=== PATIENT | female | born 1960 | race Two or more races ===

== ENCOUNTER 2019-04-20 11:00 | Outpatient (AMBR) | payer MEDICAID, SELFPAY ==
--- NOTE | 2019-04-09 10:29 | PT.OIERPT ---
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 Pt mention that she still has knee pain (6/10). Pt still has limitation with walking, sit-stand, prolonged standing, chores, self care, and functional tasks. Pt is anemic and is currently under a physician's care. Objective Left Knee AROM: -15 deg to 71 deg Left Knee PROM: -12 deg to 75 deg Left Knee MMTs Quads: 3/5 Hs: 3/5 Left Hip MMTs Glute Med: 3/5 Glute MaxL 3/5 Gait Observation: decrease L LE WB in stance and minimal preswing and pushoff SLS: unable Assessment Pt demonstrate lef knee pain and mobility deficits s/p knee [place] leading to decline function. Pt will benefit from physical therapy to increase mobility, strength, and work on gait Short Term and Detention Goals 1) Increase left knee flexion AROM to 120 deg in 12 wks to be able to perform squatting activities 2) Increase left knee MMTs to 4/5 in 12 wks to be able to perform stairs and steps 3) Increase left hip MMTs to 4-/5 in 12 wks to be able to perform ambulation with less limitation 4) Decrease knee pain to 2/10 in 12 wks to be able to stand more than 1 hr 5) Indep with HEP Treatment Plan 1) Manual Therapy 2) Therapeutic Activities 3) Therapeutic Exercises 4) Modalities (ice, heat) 5) Balance Training 6) Gait Training Frequency and Duration 2-3 x wk for 12 w wks Certification Dates: 04/09/19 to 07/09/19 Office Procedures PT Procedures PT Date of Service: 04/09/19 OP PT Eval Mod Complex 30 minutes: Yes
--- NOTE | 2019-04-10 10:44 | PT.ODAYNRPT ---
PT Outpatient Daily Note Date of Service: April 10, 2019 OP Daily Note Visit Reasons: [place] Outpatient Physical Therapy Treatment Date: 04/10/19 Subjective: Pt is feeling okay. Pt mention that there's more soreness in the knee today. Objective: Please see flow chart for list of ther ex performed Assessment: Pt exhibit pain with knee flexion stretch, however, educated that it's a necessary process due to having a knee [place] 2 days ago. Pt require cues to correct the self knee flexion stretch with green strap. Post ice help decrease pain. Plan: Continue with PT Length of Time (minutes) of Treatment: 30 Minutes Office Procedures PT Procedures PT Date of Service: 04/09/19 OP PT Eval Mod Complex 30 minutes: Yes PT Procedures PT Date of Service: 04/10/19 Therapeutic Exercise 30 minutes: Yes
--- NOTE | 2019-04-13 11:51 | PT.ODAYNRPT ---
PT Outpatient Daily Note Date of Service: April 13, 2019 OP Daily Note Visit Reasons: [place] Outpatient Physical Therapy Treatment Date: 04/13/19 Subjective: Pt mention that her knee is very sore today and it hurts currently due to not taking her pain meds prior to PT. Pt will like to know some stretching to get her knee straight. Objective: Please see flow chart for list of ther ex performed Assessment: very guarded today with exercises due to pain. cues to correct knee flexion AROM with foam roll. Pt demonstrate less stiffness after therapy session Plan: Continue with PT Length of Time (minutes) of Treatment: 45 Minutes Office Procedures PT Procedures PT Date of Service: 04/09/19 OP PT Eval Mod Complex 30 minutes: Yes PT Procedures PT Date of Service: 04/10/19 Therapeutic Exercise 30 minutes: Yes PT Procedures PT Date of Service: 04/13/19 Therapeutic Exercise 45 minutes: Yes
--- NOTE | 2019-04-15 11:19 | PT.ODAYNRPT ---
PT Outpatient Daily Note Date of Service: April 15, 2019 OP Daily Note Visit Reasons: [place] Outpatient Physical Therapy Treatment Date: 04/15/19 Subjective: Pt's knee is hurting today. Pt mention that she's been having left neck, chest, and arm pain since yesterday. Pt feels that there's air in the joint or muscle. Currently Pt still feels that she has air in her chest but no pain or SOB. Pt really wants to do therapy today. Objective: Please see flow chart for list of ther ex performed Assessment: advised Pt to go to ER if symptoms reported worsening after therapy session or towards the evening. Pt gave verbal consent. Pt was very guarded today with exercises and self stretch due to pain. post ice help with soreness and decrease knee pain Plan: Continue with PT Length of Time (minutes) of Treatment: 45 Minutes Office Procedures PT Procedures PT Date of Service: 04/09/19 OP PT Eval Mod Complex 30 minutes: Yes PT Procedures PT Date of Service: 04/10/19 Therapeutic Exercise 30 minutes: Yes PT Procedures PT Date of Service: 04/13/19 Therapeutic Exercise 45 minutes: Yes PT Procedures PT Date of Service: 04/15/19 Therapeutic Exercise 45 minutes: Yes
--- NOTE | 2019-04-20 12:44 | PT.ODAYNRPT ---
PT Outpatient Daily Note Date of Service: April 20, 2019 OP Daily Note Visit Reasons: [place] Outpatient Physical Therapy Treatment Date: 04/20/19 Subjective: Pt. reported 7/10 pain in L knee while using sci fit machine with B U/L E. Objective: Please refer to flow chart for list of ther ex performed. Assessment: Pt. has very limited movement in L knee during all flexion-biased ther ex. Pt. had discomfort during passive knee flexion stretch with stretch felt in rectus femoris and pain in knee as well. Plan: Continue PT per POC. Length of Time (minutes) of Treatment: 30 Minutes Office Procedures PT Procedures PT Date of Service: 04/09/19 OP PT Eval Mod Complex 30 minutes: Yes PT Procedures PT Date of Service: 04/20/19 Therapeutic Exercise 30 minutes: Yes PT Procedures PT Date of Service: 04/10/19 Therapeutic Exercise 30 minutes: Yes PT Procedures PT Date of Service: 04/13/19 Therapeutic Exercise 45 minutes: Yes PT Procedures PT Date of Service: 04/15/19 Therapeutic Exercise 45 minutes: Yes
== END 2019-04-20 23:59 | disposition home or self-care (01) ==
PROVIDERS: PCP Family Medicine; Referring Provider Family Medicine; Visit Provider Orthopaedic Surgery
DX: T84.82XD Fibrosis due to internal orthopedic prosthetic devices, implants and grafts, subsequent encounter (principal); M25.562 Pain in left knee; R26.2 Difficulty in walking, not elsewhere classified; V89.2XXD Person injured in unspecified motor-vehicle accident, traffic, subsequent encounter
CPT/HCPCS: 97110; 97162

== ENCOUNTER 2024-07-09 09:30 | Day surgery (SDC) | payer MEDICAID, SELFPAY ==
[2024-07-03 08:11] VITALS: BMI 38.6
[2024-07-03 09:08] LABS: Basophils # (Auto) 0.1 Thou/mm3 (0.0-0.2); Basophils % (Auto) 1 % (0-2.5); Eosinophils # (Auto) 0.2 Thou/mm3 (0.0-0.5); Eosinophils % (Auto) 2 % (0-10); Hematocrit 39.3 % (36.0-46.0); Hemoglobin 12.5 g/dL (12.0-16.0); Immature Granulocytes % (Auto) 0 % (0-0); Immature Granulocytes Auto 0.01 Thou/mm3 (0.00-0.00); Lymphocytes # (Auto) 2.1 Thou/mm3 (1.0-4.8); Lymphocytes % (Auto) 30 % (10-50); Mean Corpuscular HGB Conc 31.8 g/dl (31.0-37.0); Mean Corpuscular Hemoglobin 28.5 pg (25.0-35.0); Mean Corpuscular Volume 90 fL (80-100); Monocytes # (Auto) 0.7 Thou/mm3 (0.0-0.8); Monocytes % (Auto) 11 % (0-12); Neutrophils % (Auto) 56 % (37-80); Nucleated Red Blood Cell % 0 /100 WBC (0); Platelet Count 286 Thou/mm3 (140-440); RDW Standard Deviation 44.8 fL (36.4-46.3); Red Blood Count 4.38 Miln/mm3 (4.00-5.20)
[2024-07-03 09:16] LABS: Partial Thromboplastin Time 27.3 Seconds (22.0-36.0); Prothrombin Time 10.6 Seconds (9.0-12.2)
[2024-07-03 09:20] LABS: Alanine Aminotransferase 15 U/L (10-49); Albumin, Serum 4.9 gm/dL (3.4-4.8); Alkaline Phosphatase 95 U/L (46-116); Anion Gap 4 (7-16); Aspartate Amino Transferase 15 U/L (0-34); BUN/Creatinine Ratio 13 Ratio (12-20); Bilirubin,Total 0.5 mg/dL (0.3-1.2); Blood Urea Nitrogen 9 mg/dL (9-23); Calcium 9.2 mg/dL (8.3-10.6); Calcium (Corrected) 9.2 mg/dL (8.5-10.1); Carbon Dioxide 30.1 mMol/L (20.0-31.0); Chloride 105 mMol/L (98-107); Creatinine (Component) 0.7 mg/dL (0.6-1.3); Estimated Creatinine Clearance 88.6 mL/min (>60); Globulin 2.4 gm/dL (2.3-3.5); Glucose 92 mg/dL (74-106); Osmolality,Calculated 276 (275-295); Potassium 3.7 mMol/L (3.4-5.1); Sodium 139 mMol/L (136-145); Total Protein 7.3 gm/dL (5.7-8.2); eGFR > 60 See Note
[2024-07-09] VITALS (14 sets, daily range): BP systolic 92–150; BP diastolic 61–97; PULSE 72–101; RESP 12–20; TEMP 36.2–36.6; O2SAT 95–98; BMI 38.3
[2024-07-09] MEDS: ALBUTEROL RT 2.5 MG/3 ML NEBU INH (11:16)
[2024-07-09] MEDS: RINGERS LACTATED 1000 ML 1,000 ML 20 ML IV (11:17)
--- NOTE | 2024-07-09 13:11 | ESOP_ITS ---
Date of Procedure 07/09/24 Pre Op Diagnosis Symptomatic varicose veins right lower extremity Post Op Diagnosis Same as preop diagnosis Procedure Varicose vein excisions right lower extremity through 42 separate incisions Findings All marked varicose veins were either removed or disrupted Procedure Description With the patient standing in the preop area all varicose veins to be removed were carefully marked with a sharpie pen. The patient was brought to the operating room and laryngeal mask anesthesia was induced. A timeout was perform ed. The operation was performed by using a #11 blade to make a small skin anibal in the marked areas then bluntly enlarging the incision with a small mosquito clamp and sequentially grasping and excising the veins. This was done through 42 separate incisions. After hemostasis was obtained and the wound the leg was cleaned and then Steri-Strips were applied to reapproximate the incisions. The leg was then wrapped with gauze Kerlix and an Mirza wrap. Patient woke up from anesthesia was moved to recovery in stable condition Anesthesia other (Laryngeal mask anesthesia) Pathology / specimen Other (Right leg varicose veins) Estimated Blood Loss 200 Condition Stable Disposition PACU Surgeon Odell Quintanilla MD Surgical Staff Operation Date: 07/09/24 11:30 Case Staff Anesthesiologist: Carlos Shah RN First Assistant: Ofe Lozano
--- NOTE | 2024-07-09 13:38 | SUR.PHASEI ---
pt received from OR in recovery bay 8. pt asleep but responds to voice, breathing unlabored on oxymask 8l. v/s stable. pt dressing to right lower extremity cdi. report received from Ry BERKOWITZ and Dr. Shah.
[2024-07-09] MEDS: ONDANSETRON INJ 2 MG/ML INJ 2 ML 4 MG IV (14:28)
--- NOTE | 2024-07-09 15:30 | SUR.PHASEII ---
pt able to tolerate oral fluids without difficulty swallowing or nausea/vomiting.
[2024-07-09] MEDS: fentaNYL CIT INJ 50 mCg/ML AMP 2ML 25 MCG IV (15:32)
--- NOTE | 2024-07-09 16:25 | SUR.PHASEII ---
pt awake and alert, breathing unlabored on room air. v/s stable. pt dressing to right lower extremity cdi. pt able to ambulate to wheelchair with steady gait. dressing inspected after ambulation no blood noted. d/c instructions given with daughter Sun in room using lawn mower mechanic [id number], all questions answered. pt d/c via wheelchair with all belongings.
== END 2024-07-09 16:25 | disposition home or self-care (01) ==
PROVIDERS: Anesthesiology; PCP Family Medicine; Referring Provider Surgery Vascular Surgery; Visit Provider Surgery Vascular Surgery
PROC: (CPT 37785; principal; 2024-07-09 11:15)
DX: I83.811 Varicose veins of right lower extremity with pain (principal)
CPT/HCPCS: 37765; 37766; 36415; 80053; 85025; 85610; 85730; A4217; A4649; J0690; J2250; J2405; J2704; J2765; J3010; J7120

== ENCOUNTER 2024-07-17 14:22 | Emergency (ER) | payer MEDICAID, SELFPAY ==
[2024-07-17 14:23] VITALS: BMI 38.4
[2024-07-17 14:53] VITALS: BP 133/77; PULSE 102; RESP 19; TEMP 36.9; O2SAT 96
--- NOTE | 2024-07-17 15:39 | XR_ITS ---
Examination: PA lateral chest 2 views TECHNIQUE: Upright PA lateral chest 2 views Exam date and time: July 17, 2024 1547 hours Comparison November 24, 2023 INDICATIONS: Asthma coughing shortness of breath today. FINDINGS: Mild accentuation basilar bronchovascular markings Normal heart size No lobar pneumonia Intact osseous structures IMPRESSION: Basilar bronchitis pattern
--- NOTE | 2024-07-17 15:52 | PD.ASTHM ---
ED Asthma RME/HPI General Chief Complaint: Asthma Stated Complaint: ASTHMA Time Seen by Provider: 07/17/24 14:59 Source: patient Arrival date/time: 07/17/24 14:22 This is a 64-year-old female presents to the emergency department with complaints of wheezing shortness of breath worsening for 3 days. History of asthma exacerbation. Patient reports she has been using her handheld albuterol inhaler with no relief of symptoms prompting her ED visit today. She denies any fever, chills no chest pain. + Wheezing Mode of arrival: ambulatory Related Data Home Medications ?Medication ?Instructions ?Recorded ?Confirmed omeprazole 20 mg capsule,delayed 20 mg PO BID 12/06/21 07/03/24 release amlodipine 10 mg tablet 10 mg PO QDAY 07/03/24 07/03/24 aspirin 81 mg tablet,delayed 81 mg PO QDAY 07/03/24 07/03/24 release atorvastatin 20 mg tablet 20 mg PO QDAY 07/03/24 07/03/24 fluticasone propionate 230 2 puff inhalation BID 07/03/24 07/03/24 mcg-salmeterol 21 mcg/actuation HFA inhaler (Advair HFA) sertraline 100 mg tablet 100 mg PO QDAY 07/03/24 07/03/24 Previous Rx's ?Medication ?Instructions ?Recorded albuterol sulfate 90 mcg/actuation 2 inh inhalation Q4H PRN shortness 06/28/23 aerosol inhaler of breath or wheezing #8.5 grams albuterol sulfate 90 mcg/actuation 2 puff inhalation Q6H PRN 07/17/24 aerosol inhaler (Ventolin HFA) shortness of breath or wheezing #8.5 grams fluticasone 250 mcg-salmeterol 50 1 inh inhalation BID #60 ea 07/17/24 mcg/dose blistr powdr for inhalation ipratropium bromide 17 2 puff inhalation Q8H #12.9 grams 07/17/24 mcg/actuation HFA aerosol inhaler Allergies Allergy/AdvReac Type Severity Reaction Status Date / Time No Known Allergies Allergy Verified 07/17/24 14:25 Review of Systems Review of Systems Systems Reviewed: All systems reviewed, normal except as documented Narrative Review of Systems: Gen: No fever, no chills, no weight loss EYES: No discharge, no visual changes, no pain HEENT: No ear pain, no congestion, no sore throat PULM: + shortness of breath/+wheezing, no cough, no congestion CV: No chest pain, + dyspnea on exertion, no palpitations GI: No nausea, no vomiting, no diarrhea, no pain, no constipation : No frequency, no urgency, no dysuria Musc/skel: No joint pain, no back pain Skin: No rash Psyc: No hallucinations, no depression Heme/Lymph: No easy bleeding or bruising tendencies Neuro: No weakness, no headache ED Exam Narrative Physical exam: General: 64-year-old female Sittiing in Exam table speaking in full sentences mild respiratory, answering questions appropriately HENT: normocephalic, atraumatic, EOMI, PERRLA, moist mucous membranes Chest: chest wall is nontender Cardiac: regular rate and rhythm, normal S1 and S2, no murmurs, rubs, or gallops, capillary refill ?2 seconds Pulmonary: + Positive inspiratory wheezing, no crackles, or rhonchi Abdominal: active bowel sounds, soft, nontender, nondistended Neuro: A&OX3, CN II-XII intact, sensation grossly intact bilaterally in UE and LE. Skin: no rashes, no ecchymosis Ext: no lower extremity edema Course Quality Measures none Orders Category Date Time Status XR chest 2V Stat Exams 07/17/24 15:39 Taken Albuterol/Ipratr Rt Lizeth [Duoneb Rt Lizeth] Med 07/17/24 15:37 Discontinued 3 ml INH X1 ONE Budesonide Rt [Pulmicort Rt Lizeth] Med 07/17/24 15:38 Discontinued 0.5 mg INH X1 ONE MethylPREDNISolone.* [SoluMEDROL Inj] Med 07/17/24 15:33 Discontinued 125 mg IM X1 ONE Vital Signs Vital signs: Vital Signs Temperature 98.4 F 07/17/24 14:53 Pulse Rate 102 H 07/17/24 14:53 Respiratory Rate 19 07/17/24 14:53 Blood Pressure 133/77 H 07/17/24 14:53 Pulse Oximetry (%) 96 07/17/24 14:53 Oxygen Delivery Method Room Air 07/17/24 14:53 Asthma MDM Narrative MDM Narrative:: Patient has improved there is no more wheezing, no more coughing at this time. No respiratory distress at upon reassessment presentation. Patient's lung sounds improved with nebulizer treatments given in the ED. The patient is without hypoxia, without fever and is tolerating POs. Doubt pneumonia given no focal lung abnormalities and patient is afebrile. Patient is stable for discharge home. Patient to follow up with PMD in 2 days. Strict return to ED precautions given to parent. Patient verbalized understanding. Patient data External records reviewed:: [facility] previous records Clinical information provided by:: patient Social determinants that could affect healthcare access:: none Patient has the following chronic illnesses:: Hypertension, asthma, arthritis How is presenting disease/condition affected by chronic disease/condition?: exacerbated by Evaluation data The following diagnostics were reviewed and interpreted by me:: radiology exam(s) Lab and/or radiology exams considered but not ordered:: Labs however patient presents with mild asthma exacerbation. Interpretation Summary: Examination: PA lateral chest 2 views TECHNIQUE: Upright PA lateral chest 2 views Exam date and time: July 17, 2024 1547 hours Comparison November 24, 2023 INDICATIONS: Asthma coughing shortness of breath today. FINDINGS: Mild accentuation basilar bronchovascular markings Normal heart size No lobar pneumonia Intact osseous structures IMPRESSION: Basilar bronchitis pattern Medications / Prescriptions Medications or Prescriptions considered but not ordered:: none Medication administrations:: Medication Administration History Discontinued Medications Albuterol/Ipratropium (Albuterol/Ipratropium (Duoneb) Rt Lizeth 3 Ml Nebu) 3 ml INH X1 ONE Stop: 07/17/24 15:38 Budesonide (Budesonide Rt 0.5 Mg/2 Ml Nebu) 0.5 mg INH X1 ONE Stop: 07/17/24 15:39 Methylprednisolone Sodium Succinate (Methylprednisolone Sod Succ 62.5 Mg/Ml 2ml Vial) 125 mg IM X1 ONE Stop: 07/17/24 15:34 Consultations Consultation(s) initiated? (list below): No Diagnosis Differential diagnosis asthma: Acute exacerbation, Status asthmaticus, Acute asthmatic bronchitis, Pneumonia and COPD exacerbation Most likely diagnosis given after review of the tests above:: Asthma exacerbation Admission Indicated Admission indicated?: not indicated Admission Request Was there a request for admission?: No Disposition Plan Disposition Plan: Discharge Discharge Attestation Discharge Attestation: The patient and all family members were given an opportunity to ask questions and understood the discharge instructions. Discharge instructions specifically effects, indications for sooner follow up or return to the emergency department, and the expected course of current diagnosis. Patient condition: Stable Discharge Plan Plan Patient Disposition: HOME (Self Care) Patient condition on transfer: Stable Prescriptions/Referrals Prescriptions/Med Rec: New fluticasone propion-salmeterol 250-50 mcg/dose blister with device 1 inh inhalation BID Qty: 60 0RF albuterol sulfate [Ventolin HFA] 90 mcg/actuation HFA aerosol inhaler 2 puff inhalation Q6H PRN (Reason: shortness of breath or wheezing) Qty: 8.5 0RF ipratropium bromide 17 mcg/actuation HFA aerosol inhaler 2 puff inhalation Q8H Qty: 12.9 0RF No Action omeprazole 20 mg Capsule,Delayed Release(Dr/Ec) 20 mg PO BID albuterol sulfate 90 mcg/actuation HFA aerosol inhaler 2 inh inhalation Q4H PRN (Reason: shortness of breath or wheezing) Qty: 8.5 0RF atorvastatin 20 mg Tablet 20 mg PO QDAY sertraline 100 mg Tablet 100 mg PO QDAY amlodipine 10 mg Tablet 10 mg PO QDAY fluticasone propion-salmeterol [Advair HFA] 230-21 mcg/actuation Hfa Aerosol Inhaler 2 puff INHALATION BID aspirin 81 mg Tablet,Delayed Release (Dr/Ec) 81 mg PO QDAY Referrals: Benjamin Linn MD [Primary Care Provider] - In 1 week Problem List Clinical Impression: Asthma exacerbation Patient/Caregiver Discharge Instructions Discharge Activity: activity as tolerated Education Materials: Asthma Additional Instructions: - Please use inhalers as directed. -Please use your medication and steroids as directed. -Please follow-up with your primary doctor on Saturday for follow-up care Please return to the emergency department this any worsening symptoms change in condition. Print Language: Cameroonian Stand Alone Forms: Annita Award Info., Patient Portal Info Letter PA/JEFF Supervising Physician PA/JEFF Supervising Physician: Dr Glasgow
[2024-07-17] MEDS: ALBUTEROL/IPRATROPIUM (Duoneb) RT SOL 3 ML NEBU INH ×2 (16:13→17:07)
[2024-07-17] MEDS: BUDESONIDE RT 0.5 MG/2 ML NEBU INH (16:13)
[2024-07-17] MEDS: MethylPREDNISolone SOD SUCC 62.5 MG/ML 2ML VIAL 125 MG IM (16:14)
[2024-07-17 16:15] VITALS: PULSE 85; RESP 18; O2SAT 100
[2024-07-17 17:08] VITALS: PULSE 87; RESP 18; O2SAT 100
[2024-07-17] MEDS: ACETAMINOPHEN 500 MG TABLET 1000 MG PO (17:23)
== END 2024-07-17 18:00 | disposition home or self-care (01) ==
PROVIDERS: Emergency Provider Emergency Medicine; PCP Family Medicine
DX: J45.901 Unspecified asthma with (acute) exacerbation (principal); Z79.51 Long term (current) use of inhaled steroids
CPT/HCPCS: 71046; 94640; 96372; 99284; A9270; J2919

== ENCOUNTER → 2024-07-27 | Outpatient (BNVA) | payer MEDICAID, SELFPAY | END | disposition home or self-care (01) | PROVIDERS: PCP Nurse Practitioner Family; Referring Provider Nurse Practitioner Family; Visit Provider Nurse Practitioner Family | DX: J45.901 Unspecified asthma with (acute) exacerbation (principal) | CPT/HCPCS: 94640; 96372; 99214; J2919; A9270 ==

== ENCOUNTER → 2024-08-04 | Outpatient (BNVA) | payer MEDICAID, SELFPAY | END | disposition home or self-care (01) | PROVIDERS: PCP Nurse Practitioner Family; Referring Provider Nurse Practitioner Family; Visit Provider Nurse Practitioner Family | DX: Z00.01 Encounter for general adult medical examination with abnormal findings (principal); Z13.820 Encounter for screening for osteoporosis; Z12.31 Encounter for screening mammogram for malignant neoplasm of breast; I10 Essential (primary) hypertension; J45.909 Unspecified asthma, uncomplicated; E66.9 Obesity, unspecified; Z68.30 Body mass index [BMI] 30.0-30.9, adult; Z13.220 Encounter for screening for lipoid disorders | CPT/HCPCS: 93005; 99215 ==

== ENCOUNTER → 2024-08-31 | Outpatient (CLI) | payer MEDICAID, SELFPAY ==
--- NOTE | 2024-08-31 08:15 | XR_ITS ---
Examination: Screening digital mammography, bilateral Computer aided detection 3-D breast Tomosynthesis, bilateral Date and time of exam: August 31, 2024 0955 hours Compared to mammograms dating to November 27, 2010 Indication: Screening Technique: Nonmagnified MLO, CC views of the breasts to been obtained, reconstructed from 3-D Tomosynthesis images. R2 computer aided detection program utilized for evaluation of suspicious masses and/or abnormal calcifications. 3-D Tomosynthesis images obtained. Findings: Scattered areas of fibroglandular density Numerous bilateral calcifications again noted No interval suspicious masses Impression: BI-RADS category II: Benign Findings. Recommend 1 year follow-up mammogram.
== END | disposition home or self-care (01) ==
LOC: CDIM 09:49
PROVIDERS: Referring Provider Nurse Practitioner Family; Visit Provider Nurse Practitioner Family
DX: Z12.31 Encounter for screening mammogram for malignant neoplasm of breast (principal); R92.323 Mammographic fibroglandular density, bilateral breasts; R92.1 Mammographic calcification found on diagnostic imaging of breast
CPT/HCPCS: 77063; 77067

== ENCOUNTER → 2024-09-03 | Outpatient (BNVA) | payer MEDICAID, SELFPAY | END | disposition home or self-care (01) | PROVIDERS: PCP Nurse Practitioner Family; Referring Provider Nurse Practitioner Family; Visit Provider Nurse Practitioner Family | DX: J45.909 Unspecified asthma, uncomplicated (principal); I10 Essential (primary) hypertension; K21.9 Gastro-esophageal reflux disease without esophagitis | CPT/HCPCS: 99213 ==

== ENCOUNTER → 2024-09-08 | Outpatient (BNVA) | payer MEDICAID, SELFPAY | END | disposition home or self-care (01) | PROVIDERS: PCP Nurse Practitioner Family; Referring Provider Nurse Practitioner Family; Visit Provider Nurse Practitioner Family | DX: I10 Essential (primary) hypertension (principal); E78.5 Hyperlipidemia, unspecified; R73.03 Prediabetes; Z71.2 Person consulting for explanation of examination or test findings; E55.9 Vitamin D deficiency, unspecified; Z12.31 Encounter for screening mammogram for malignant neoplasm of breast | CPT/HCPCS: 99213 ==

== ENCOUNTER → 2024-09-28 | Outpatient (CLI) | payer MEDICAID, SELFPAY ==
--- NOTE | 2024-09-28 14:45 | XR_ITS ---
Examination: Bone densitometry Date and time of exam:September 28, 2024 1514 hrs. Indications: Menopause age 53 vitamin D one week Technique: Lumbar spine and hip total bone mineralization values of an calculated. Peak reference and age match control results have been displayed. Findings: Lumbar spine total bone mineralization is0.891 gm/cm2. This is 1.4 standard deviations below peak reference. This is 0.4 standard deviations above age-matched controls. Hip total bone mineralization is 0.941 gm/cm2 This is 0.2 standard deviations below peak reference. This is 1 standard deviations above age-matched controls Impression: There is osteopenia based on lumbar spine measurements. There is osteopenia based on hip measurements
== END | disposition home or self-care (01) ==
PROVIDERS: PCP Nurse Practitioner Family; Referring Provider Nurse Practitioner Family; Visit Provider Nurse Practitioner Family
DX: Z13.820 Encounter for screening for osteoporosis (principal); M85.89 Other specified disorders of bone density and structure, multiple sites
CPT/HCPCS: 77080

== ENCOUNTER → 2024-10-13 | Outpatient (BNVA) | payer MEDICAID, SELFPAY | END | disposition home or self-care (01) | PROVIDERS: PCP Nurse Practitioner Family; Referring Provider Nurse Practitioner Family; Visit Provider Nurse Practitioner Family | DX: M54.41 Lumbago with sciatica, right side (principal); M85.80 Other specified disorders of bone density and structure, unspecified site | CPT/HCPCS: 99214 ==

== ENCOUNTER → 2024-10-13 | Outpatient (CLI) | payer MEDICAID, SELFPAY ==
--- NOTE | 2024-10-13 12:09 | XR_ITS ---
Examination: Lumbar spine 3 views Technique one AP lateral coned lateral lower lumbar spine 3 views Exam date and time: October 13, 2024 1242 hours INDICATIONS: Low back pain radiating down the right leg one year FINDINGS: Moderate osteopenia Lumbar dextroscoliosis 10 degrees No lumbar fracture Advanced disc narrowing L5-S1 IMPRESSION: Advanced degenerative disc disease L5-S1 As clinically warranted, MRI lumbar spine without contrast follow-up would best assess for soft tissue disc protrusion producing radicular right hip pain
== END | disposition home or self-care (01) ==
PROVIDERS: PCP Nurse Practitioner Family; Referring Provider Nurse Practitioner Family; Visit Provider Nurse Practitioner Family
DX: M51.379 Other intervertebral disc degeneration, lumbosacral region without mention of lumbar back pain or lower extremity pain (principal)
CPT/HCPCS: 72100

== ENCOUNTER → 2024-10-20 | Outpatient (BNVA) | payer MEDICAID, SELFPAY | END | disposition home or self-care (01) | PROVIDERS: PCP Nurse Practitioner Family; Referring Provider Nurse Practitioner Family; Visit Provider Nurse Practitioner Family | DX: Z71.2 Person consulting for explanation of examination or test findings (principal); M54.41 Lumbago with sciatica, right side; M51.369 Other intervertebral disc degeneration, lumbar region without mention of lumbar back pain or lower extremity pain; E55.9 Vitamin D deficiency, unspecified | CPT/HCPCS: 99214 ==

== ENCOUNTER → 2024-12-11 | Outpatient (BNVA) | payer MEDICAID, SELFPAY | END | disposition home or self-care (01) | PROVIDERS: PCP Nurse Practitioner Family; Referring Provider Nurse Practitioner Family; Visit Provider Nurse Practitioner Family | DX: D64.9 Anemia, unspecified (principal); E55.9 Vitamin D deficiency, unspecified ==

== ENCOUNTER → 2024-12-16 | Outpatient (BNVA) | payer MEDICAID, SELFPAY | END | disposition home or self-care (01) | PROVIDERS: PCP Nurse Practitioner Family; Referring Provider Nurse Practitioner Family; Visit Provider Nurse Practitioner Family | DX: F32.1 Major depressive disorder, single episode, moderate (principal) | CPT/HCPCS: 99212; G0463 ==

== ENCOUNTER → 2024-12-25 | Outpatient (BNVA) | payer MEDICAID, SELFPAY | END | disposition home or self-care (01) | PROVIDERS: PCP Nurse Practitioner Family; Referring Provider Nurse Practitioner Family; Visit Provider Nurse Practitioner Family | DX: J45.909 Unspecified asthma, uncomplicated (principal); E78.5 Hyperlipidemia, unspecified; R73.03 Prediabetes; Z71.2 Person consulting for explanation of examination or test findings; E55.9 Vitamin D deficiency, unspecified | CPT/HCPCS: 99212; G0463 ==

== ENCOUNTER → 2025-01-06 | Outpatient (BNVA) | payer MEDICAID, SELFPAY | END | disposition home or self-care (01) | PROVIDERS: PCP Nurse Practitioner Family; Referring Provider Nurse Practitioner Family; Visit Provider Nurse Practitioner Family | DX: M54.41 Lumbago with sciatica, right side (principal); M21.611 Bunion of right foot; M25.572 Pain in left ankle and joints of left foot; M25.571 Pain in right ankle and joints of right foot; M25.561 Pain in right knee | CPT/HCPCS: 96372; 99214; J1885 ==

== ENCOUNTER → 2025-01-06 | Outpatient (CLI) | payer MEDICAID, SELFPAY ==
--- NOTE | 2025-01-06 16:24 | XR_ITS ---
Examination: Foot bilateral, 6 views Technique: AP, oblique, lateral views each foot total 6 views Date and time of exam: January 06, 2025 1626 hours INDICATIONS: Bilateral foot pain one year. FINDINGS: Prominent osteopenia Erosive arthritis first metatarsophalangeal joint, erosion distal first metatarsal and Moderate narrowing at the first metatarsophalangeal joint with mild bunion deformity 4 mm right plantar bony calcaneal spur Mild to moderate bunion deformity on the left with chronic erosions distal first metatarsal No fracture 5 mm plantar bony calcaneal spur IMPRESSION: Bilateral mild bunion deformities Bilateral erosions distal first metatarsals, which can be seen with gouty arthropathy, clinical correlation is advised
--- NOTE | 2025-01-06 16:24 | XR_ITS ---
Examination: Knee, right , 3 views Technique: Knee AP, lateral, oblique 3 views Date and time of exam: January 06, 2025 1626 hours INDICATIONS: Knee pain one year. FINDINGS: Total right knee arthroplasty. Satisfactory alignment. No fracture. On the lateral view there is radiolucency surrounding the prosthetic tibial stem IMPRESSION: Suspicious for loosening of the prosthetic tibial stem Consider three-phase bone scan follow-up
--- NOTE | 2025-01-06 16:24 | XR_ITS ---
Examination: Lumbar spine 3 views Technique one AP lateral, lateral lower lumbar spine 3 views Date and time: January 06, 2025 1637 hours INDICATIONS: Low back pain one year. FINDINGS: Moderate osteopenia No acute lumbar fracture Advanced disc narrowing L5-S1 No spondylolisthesis IMPRESSION: Advanced degenerative disc disease L5-S1
== END | disposition home or self-care (01) ==
PROVIDERS: PCP Nurse Practitioner Family; Referring Provider Nurse Practitioner Family; Visit Provider Nurse Practitioner Family
DX: M25.561 Pain in right knee (principal); Z96.651 Presence of right artificial knee joint; M21.612 Bunion of left foot; M21.611 Bunion of right foot; M85.872 Other specified disorders of bone density and structure, left ankle and foot; M85.871 Other specified disorders of bone density and structure, right ankle and foot; M51.370 Other intervertebral disc degeneration, lumbosacral region with discogenic back pain only
CPT/HCPCS: 72100; 73562; 73630

== ENCOUNTER → 2025-01-12 | Outpatient (BNVA) | payer MEDICAID, SELFPAY | END | disposition home or self-care (01) | PROVIDERS: PCP Nurse Practitioner Family; Referring Provider Nurse Practitioner Family; Visit Provider Nurse Practitioner Family | DX: Z71.2 Person consulting for explanation of examination or test findings (principal); M21.612 Bunion of left foot; M25.572 Pain in left ankle and joints of left foot; M25.571 Pain in right ankle and joints of right foot; M25.561 Pain in right knee; M51.369 Other intervertebral disc degeneration, lumbar region without mention of lumbar back pain or lower extremity pain | CPT/HCPCS: 99212; G0463 ==

== ENCOUNTER → 2025-02-04 | Outpatient (BNVA) | payer MEDICAID, SELFPAY | END | disposition home or self-care (01) | PROVIDERS: PCP Nurse Practitioner Family; Referring Provider Nurse Practitioner Family; Visit Provider Nurse Practitioner Family | DX: Z11.1 Encounter for screening for respiratory tuberculosis (principal); L08.9 Local infection of the skin and subcutaneous tissue, unspecified | CPT/HCPCS: 99215 ==

== ENCOUNTER → 2025-02-05 | Outpatient (BNVA) | payer MEDICAID, SELFPAY | END | disposition home or self-care (01) | PROVIDERS: PCP Nurse Practitioner Family; Referring Provider Nurse Practitioner Family; Visit Provider Nurse Practitioner Family | DX: M25.561 Pain in right knee (principal); R32 Unspecified urinary incontinence; G89.29 Other chronic pain; R31.9 Hematuria, unspecified; R60.9 Edema, unspecified | CPT/HCPCS: 81001; 99213 ==

== ENCOUNTER → 2025-02-05 | Outpatient (CLI) | payer MEDICAID, SELFPAY ==
--- NOTE | 2025-02-05 12:13 | XR_ITS ---
Examination: PA lateral chest 2 views TECHNIQUE: Upright PA lateral chest 2 views Date and time: February 05, 2025 1221 hours INDICATIONS: Positive TB skin test FINDINGS: Minor atelectasis left base No significant cardiac enlargement No pneumonia or pulmonary edema IMPRESSION: No active disease No radiographic findings of tuberculosis
== END | disposition home or self-care (01) ==
PROVIDERS: PCP Nurse Practitioner Family; Referring Provider Nurse Practitioner Family; Visit Provider Nurse Practitioner Family
DX: Z11.1 Encounter for screening for respiratory tuberculosis (principal); R76.11 Nonspecific reaction to tuberculin skin test without active tuberculosis
CPT/HCPCS: 71046

== ENCOUNTER → 2025-02-09 | Outpatient (BNVA) | payer MEDICAID, SELFPAY | END | disposition home or self-care (01) | PROVIDERS: PCP Nurse Practitioner Family; Referring Provider Nurse Practitioner Family; Visit Provider Nurse Practitioner Family | DX: Z71.2 Person consulting for explanation of examination or test findings (principal); Z22.7 Latent tuberculosis | CPT/HCPCS: 99212; G0463 ==

== ENCOUNTER → 2025-02-11 | Outpatient (BNVA) | payer MEDICAID, SELFPAY | END | disposition home or self-care (01) | PROVIDERS: PCP Nurse Practitioner Family; Referring Provider Nurse Practitioner Family; Visit Provider Nurse Practitioner Family | DX: Z71.2 Person consulting for explanation of examination or test findings (principal); N39.0 Urinary tract infection, site not specified | CPT/HCPCS: 99212; G0463 ==

== ENCOUNTER → 2025-02-12 | Outpatient (BNVA) | payer MEDICAID, SELFPAY | END | disposition home or self-care (01) | PROVIDERS: PCP Nurse Practitioner Family; Referring Provider Nurse Practitioner Family; Visit Provider Nurse Practitioner Family | DX: M51.369 Other intervertebral disc degeneration, lumbar region without mention of lumbar back pain or lower extremity pain (principal); I10 Essential (primary) hypertension; M21.619 Bunion of unspecified foot; K21.9 Gastro-esophageal reflux disease without esophagitis; M79.672 Pain in left foot; M79.671 Pain in right foot; M25.561 Pain in right knee; Z71.2 Person consulting for explanation of examination or test findings | CPT/HCPCS: 99212; G0463 ==

== ENCOUNTER → 2025-03-04 | Outpatient (BNVA) | payer MEDICAID, SELFPAY | END | disposition home or self-care (01) | PROVIDERS: PCP Nurse Practitioner Family; Referring Provider Nurse Practitioner Family; Visit Provider Nurse Practitioner Family | DX: Z71.2 Person consulting for explanation of examination or test findings (principal); N39.0 Urinary tract infection, site not specified | CPT/HCPCS: 99212; G0463 ==

== ENCOUNTER → 2025-03-15 | Outpatient (BNVA) | payer MEDICAID, SELFPAY | END | disposition home or self-care (01) | PROVIDERS: PCP Nurse Practitioner Family; Referring Provider Nurse Practitioner Family; Visit Provider Nurse Practitioner Family | DX: I10 Essential (primary) hypertension (principal); R60.0 Localized edema; J45.909 Unspecified asthma, uncomplicated; E78.5 Hyperlipidemia, unspecified | CPT/HCPCS: 99212; G0463 ==

== ENCOUNTER → 2025-03-16 | Outpatient (BNVA) | payer MEDICAID, SELFPAY | END | disposition home or self-care (01) | PROVIDERS: PCP Nurse Practitioner Family; Referring Provider Nurse Practitioner Family; Visit Provider Nurse Practitioner Family | DX: M25.561 Pain in right knee (principal); R60.9 Edema, unspecified | CPT/HCPCS: 99214 ==

== ENCOUNTER → 2025-03-31 | Outpatient (BNVA) | payer MEDICAID, SELFPAY | END | disposition home or self-care (01) | PROVIDERS: PCP Nurse Practitioner Family; Referring Provider Nurse Practitioner Family; Visit Provider Nurse Practitioner Family | DX: J45.909 Unspecified asthma, uncomplicated (principal); I10 Essential (primary) hypertension; R60.9 Edema, unspecified | CPT/HCPCS: 99213; A9270 ==

== ENCOUNTER → 2025-04-07 | Outpatient (BNVA) | payer MEDICAID, SELFPAY | END | disposition home or self-care (01) | PROVIDERS: PCP Nurse Practitioner Family; Referring Provider Nurse Practitioner Family; Visit Provider Nurse Practitioner Family | DX: A04.8 Other specified bacterial intestinal infections (principal) | CPT/HCPCS: 99212; G0463 ==

== ENCOUNTER → 2025-04-12 | Outpatient (BNVA) | payer MEDICAID, SELFPAY | END | disposition home or self-care (01) | PROVIDERS: PCP Nurse Practitioner Family; Referring Provider Nurse Practitioner Family; Visit Provider Nurse Practitioner Family | DX: S70.362A Insect bite (nonvenomous), left thigh, initial encounter (principal); T63.301A Toxic effect of unspecified spider venom, accidental (unintentional), initial encounter; M79.652 Pain in left thigh | CPT/HCPCS: 96372; 99213; J1885 ==

== ENCOUNTER 2025-04-13 10:15 | Emergency (ER) | payer MEDICAID, SELFPAY ==
[2025-04-13 10:30] VITALS: BP 149/75; PULSE 77; RESP 21; TEMP 37.4; O2SAT 95; BMI 40.7
--- NOTE | 2025-04-13 11:09 | PD.EDANIML ---
ED Animal Bite RME/HPI General Chief Complaint: Animal Bite Stated Complaint: TWO SPIDER BITES ON R) KNEE Source: patient Arrival date/time: 04/13/25 10:15 Mode of arrival: ambulatory Limitations: no limitations Related Data Previous Rx's ?Medication ?Instructions ?Recorded fluticasone 250 mcg-salmeterol 50 1 inh inhalation BID #60 ea 07/17/24 mcg/dose blistr powdr for inhalation fluticasone propionate 230 2 puff inhalation BID #12 grams 09/03/24 mcg-salmeterol 21 mcg/actuation HFA inhaler (Advair HFA) atorvastatin 20 mg tablet 20 mg PO QDAY #90 tabs 09/10/24 azelastine 0.05 % eye drops 1 drp Both eyes BID #6 mL 01/06/25 diclofenac sodium 1 % topical gel 2 g topical QID PRN mild pain #100 01/06/25 (Voltaren Arthritis Pain) grams sertraline 100 mg tablet 100 mg PO QDAY #90 tabs 01/06/25 omeprazole 20 mg capsule,delayed 20 mg PO QDAY #90 caps 02/12/25 release amlodipine 10 mg tablet 10 mg PO QDAY #90 tabs 03/15/25 aspirin 81 mg tablet,delayed 81 mg PO QDAY #90 tabs 03/15/25 release hydrochlorothiazide 25 mg tablet 25 mg PO QDAY #30 tabs 03/16/25 albuterol sulfate 90 mcg/actuation 2 puff inhalation Q6H PRN 03/31/25 aerosol inhaler (Ventolin HFA) shortness of breath or wheezing #8.5 grams bismuth subcit K 140 See Rx Instructions PO PER PKG DIR 04/07/25 mg-metronidazole 125 #120 caps mg-tetracycline 125 mg cap (Pylera) meloxicam 15 mg tablet 15 mg PO QDAY #30 tabs 04/07/25 pantoprazole 20 mg tablet,delayed 20 mg PO BID 14 days #28 tabs 04/07/25 release (Protonix) acetaminophen 650 mg 650 mg PO Q8H PRN fever or pain 7 04/12/25 tablet,extended release (Tylenol 8 days #21 tabs Hour) baclofen 5 mg tablet 5 mg PO BID PRN muscle spasm 3 04/12/25 days #6 tabs amoxicillin 875 mg-potassium 1 tab PO BID 7 days #14 tabs 09/23/25 clavulanate 125 mg tablet Allergies Allergy/AdvReac Type Severity Reaction Status Date / Time No Known Allergies Allergy Verified 04/13/25 10:21 Review of Systems Review of Systems Systems Reviewed: All systems reviewed, normal except as documented Constitutional Constitutional: Reports system reviewed and no additional complaints, except as documented, Denies fatigue, Denies fever(s), Denies headache(s) and Denies weakness Eyes Eyes: Reports system reviewed and no additional complaints, except as documented, Denies blurry vision and Denies change in vision ENT Ears, Nose, Mouth, and Throat: Reports system reviewed and no additional complaints, except as documented, Denies otalgia, Denies headache(s), Denies nasal congestion, Denies throat swelling and Denies vertigo Cardiovascular Cardiovascular: Reports system reviewed and no additional complaints, except as documented, Denies chest pain, Denies dyspnea and Denies dyspnea on exertion Respiratory Respiratory: Reports system reviewed and no additional complaints, except as documented, Denies chest congestion, Denies cough, Denies dyspnea, Denies dyspnea on exertion and Denies wheezing Gastrointestinal Gastrointestinal: Reports system reviewed and no additional complaints, except as documented, Denies abdominal pain, Denies cramping, Denies nausea and Denies vomiting Genitourinary Genitourinary: Reports system reviewed and no additional complaints, except as documented Musculoskeletal Musculoskeletal: Reports system reviewed and no additional complaints, except as documented and Denies back pain Integumentary/Breasts Skin/Breast: Reports system reviewed and no additional complaints, except as documented, Reports pruritus, Reports rash and Denies wounds Neurologic Neurologic: Reports system reviewed and no additional complaints, except as documented, Denies confusion, Denies headache(s), Denies lack of coordination, Denies vertigo and Denies weakness Psychiatric Psychiatric: Reports system reviewed and no additional complaints, except as documented, Denies anxiety, Denies confusion, Denies depression, Denies paranoia, Denies suicidal ideation and Denies tactile hallucinations Endocrine Endocrine: Reports system reviewed and no additional complaints, except as documented and Denies fatigue Hematologic/Lymphatic Hematologic/Lymphatic: Reports system reviewed and no additional complaints, except as documented and Denies lymphadenopathy Allergic/Immunologic Allergic/Immunologic: Reports system reviewed and no additional complaints, except as documented, Denies throat swelling, Denies urticaria and Denies wheezing Past Medical History Past Medical History NEUROLOGIC: Positive Cerebrovascular Accident; Negative Neurological Disorders, Transient Ischemic Attacks (TIA), Seizures or Ortega's Palsy CARDIAC: Positive Cardiac Disorders, Hypercholesterolemia, Hypertension and Varicose Veins; Negative Congestive Heart Failure, Edema or Cellulitis RESPIRATORY: Positive Asthma; Negative Chronic Obstructive Pulmonary Disease (COPD), Pneumonia, Tuberculosis or Sleep Apnea GASTROINTESTINAL: Positive Gastrointestinal Disorders, Gall Bladder Disease, Hemorrhoids, Gastroesophageal Reflux Disease and Obesity; Negative Hepatitis or Colorectal Cancer GENITOURINARY: Negative Genitourinary Disorders or Renal Disease REPRODUCTIVE: Positive Previous Pregnancies; Negative Breast Cancer MUSCULOSKELETAL: Positive Musculoskeletal Disorders and Arthritis; Negative Bone Cancer ENT: Positive Cataracts; Negative Deafness ENDOCRINE: Negative Endocrine Disorders, Diabetes Mellitus Type 1 or Diabetes Mellitus Type 2 HEMATOLOGIC: Positive Blood Disorders and Anemia; Negative Sickle Cell Disease PSYCHO/SOCIAL: Positive Depression and Anxiety OTHER HISTORY: Negative Hospitalization, Autoimmune Disease, Down Syndrome, Developmental Delay, Shingles, Falls, Blood Transfusions, Blood Transfusion Reaction, Anesthesia Reactions, Organ Transplant, Chemotherapy, Radiation Therapy, Hyperbaric Therapy, MRSA, VRSA, Vancomycin-Resistant Enterococci, Human Immunodeficiency Virus (HIV), Chicken Pox, Measles, Mumps, Clostridium Difficile, Cancer, Breast Cancer, Cervical Cancer, Colorectal Cancer, Lung Cancer or Ovarian Cancer Family History FAMILY HISTORY: Positive Family Psychiatric Problems, Family Respiratory Disorders, Family Cardiac Disorders, Family Cancer and Family Surgery; Negative Family Gastrointestinal Problems or Family Anesthesia Reaction Surgical History SURGICAL: Positive Abdominal Surgery, Joint Replacement, Hysterectomy and Tubal Ligation; Negative Cardiac Surgery, Pacemaker, Endocrine Surgery, Ear Surgery, Neurologic Surgery or Organ Transplant Social History SMOKING STATUS: Never smoker SUBSTANCE USE: does not use ED Exam General Limitations: Present no limitations General appearance: Present alert and in no apparent distress Head Head exam: Present atraumatic Eye Eye exam: Present normal appearance, PERRL and EOMI ENT ENT exam: Present normal exam, normal oropharynx and mucous membranes moist Neck Neck exam: Present normal inspection, full ROM and trachea midline Chest Chest inspection: Present normal inspection and symmetric chest wall rise Respiratory Respiratory exam: Present normal lung sounds bilaterally Cardiovascular Cardiovascular exam: Present regular rate, normal rhythm and normal heart sounds Abdominal Exam Abdominal exam: Present soft and normal bowel sounds Extremities Exam Extremities exam: Present normal inspection and full ROM Expanded Lower Extremity Exam Hip/Pelvis exam: Present normal inspection Upper leg exam: Present normal inspection Knee exam: Present erythema; Absent tenderness or swelling Back Exam Back exam: Present normal inspection and full ROM Neurological Exam Neurological exam: Present alert, oriented X3 and CN II-XII intact Psychiatric Psychiatric exam: Present normal affect and normal mood Skin Skin exam: Present warm, dry, intact and normal color Expanded Skin Exam Type of lesion: Present bite/sting Distribution: Present RLE Description: Present erythematous Course Quality Measures none Vital Signs Vital signs: Vital Signs Temperature 99.3 F 04/13/25 10:30 Pulse Rate 77 04/13/25 10:30 Respiratory Rate 21 H 04/13/25 10:30 Blood Pressure 149/75 H 04/13/25 10:30 Pulse Oximetry (%) 95 04/13/25 10:30 Oxygen Delivery Method Room Air 04/13/25 10:30 Animal Bite MDM Narrative MDM Narrative:: 64-year-old female with no known medical history presents to the emergency room with a chief complaint of 2 spider bites to her right knee x 4 days Patient is hemodynamically stable and in no apparent distress Physical examination shows erythema to the left knee. The patient had seen her primary care provider and was prescribed antibiotics which she has not picked up Antibiotics sent to the patient's pharmacy Patient was discharged and educated to follow-up with primary care provider in the next 24 to 48 hours and return to the emergency room for any evidence of worsening signs or symptoms Patient data External records reviewed:: [facility] previous records Clinical information provided by:: patient Social determinants that could affect healthcare access:: none Patient has the following chronic illnesses:: No chronic illness How is presenting disease/condition affected by chronic disease/condition?: no chronic disease Evaluation data The following diagnostics were reviewed and interpreted by me:: lab results and radiology exam(s) Lab and/or radiology exams considered but not ordered:: Labs and radiology exams considered and ordered Interpretation Summary: N/A Medications / Prescriptions Medications or Prescriptions considered but not ordered:: Rx given Medication administrations:: Rx given Consultations Consultation(s) initiated? (list below): No Diagnosis Differential diagnosis animal bite: bite by animal, cat bite and other (Insect bite) Most likely diagnosis given after review of the tests above:: Spider bite Admission Indicated Admission indicated?: not indicated Admission Request Was there a request for admission?: No Disposition Plan Disposition Plan: Discharge Discharge Attestation Discharge Attestation: The patient and all family members were given an opportunity to ask questions and understood the discharge instructions. Discharge instructions specifically effects, indications for sooner follow up or return to the emergency department, and the expected course of current diagnosis. Patient condition: Stable Discharge Plan Plan Patient Disposition: HOME (Self Care) Discharge Disposition comment: Stable Prescriptions/Referrals Prescriptions/Med Rec: New amoxicillin-pot clavulanate 875-125 mg tablet 1 tab PO BID 7 Days Qty: 14 0RF No Action atorvastatin 20 mg tablet 20 mg PO QDAY Qty: 90 0RF diclofenac sodium [Voltaren Arthritis Pain] 1 % gel 2 g topical QID PRN (Reason: mild pain) Qty: 100 0RF Rx Instructions: apply to area of concern sertraline 100 mg tablet 100 mg PO QDAY Qty: 90 0RF azelastine 0.05 % drops 1 drp Both eyes BID Qty: 6 0RF omeprazole 20 mg capsule,delayed release(DR/EC) 20 mg PO QDAY Qty: 90 0RF amlodipine 10 mg tablet 10 mg PO QDAY Qty: 90 0RF aspirin 81 mg tablet,delayed release (DR/EC) 81 mg PO QDAY Qty: 90 0RF bismuth subcit [id number] [Pylera] 140-125-125 mg capsule See Rx Instructions PO PER PKG DIR Qty: 120 0RF Rx Instructions: PO PER PKG DIR meloxicam 15 mg tablet 15 mg PO QDAY Qty: 30 0RF pantoprazole [Protonix] 20 mg tablet,delayed release (DR/EC) 20 mg PO BID 14 Days Qty: 28 0RF acetaminophen [Tylenol 8 Hour] 650 mg tablet extended release 650 mg PO Q8H PRN (Reason: fever or pain) 7 Days Qty: 21 0RF baclofen 5 mg tablet 5 mg PO BID PRN (Reason: muscle spasm) 3 Days Qty: 6 0RF fluticasone propion-salmeterol [Advair HFA] 230-21 mcg/actuation HFA aerosol inhaler 2 puff INHALATION BID Qty: 12 0RF Rx Instructions: Directions in Maltese albuterol sulfate [Ventolin HFA] 90 mcg/actuation HFA aerosol inhaler 2 puff inhalation Q6H PRN (Reason: shortness of breath or wheezing) Qty: 8.5 2RF hydrochlorothiazide 25 mg tablet 25 mg PO QDAY Qty: 30 0RF fluticasone propion-salmeterol 250-50 mcg/dose blister with device 1 inh inhalation BID Qty: 60 0RF Problem List Clinical Impression: Spider bite Patient/Caregiver Discharge Instructions Additional Instructions: Please follow-up with your primary care provider in the next 24 to 48 hours Antibiotics are sent to your pharmacy please pick them up and take them as indicated For any evidence of worsening signs or symptoms return to the emergency room immediately Print Language: Maltese Stand Alone Forms: Annita Award Info., Work/School Release, Patient Portal Info Letter PA/BOILER WASHER Supervising Physician PA/BOILER WASHER Supervising Physician: Dr. Pineda
== END 2025-04-13 11:04 | disposition home or self-care (01) ==
PROVIDERS: Emergency Provider Emergency Medicine
DX: T63.301A Toxic effect of unspecified spider venom, accidental (unintentional), initial encounter (principal)
CPT/HCPCS: 99281

== ENCOUNTER → 2025-04-15 | Outpatient (BNVA) | payer MEDICAID, SELFPAY | END | disposition home or self-care (01) | PROVIDERS: PCP Nurse Practitioner Family; Referring Provider Nurse Practitioner Family; Visit Provider Nurse Practitioner Family | DX: Z09 Encounter for follow-up examination after completed treatment for conditions other than malignant neoplasm (principal); T63.301A Toxic effect of unspecified spider venom, accidental (unintentional), initial encounter | CPT/HCPCS: 99212; G0463 ==

== ENCOUNTER → 2025-04-16 | Outpatient (BNVA) | payer MEDICAID, SELFPAY | END | disposition home or self-care (01) | PROVIDERS: PCP Nurse Practitioner Family; Referring Provider Nurse Practitioner Family; Visit Provider Nurse Practitioner Family | DX: Z76.0 Encounter for issue of repeat prescription (principal); F32.1 Major depressive disorder, single episode, moderate; J45.909 Unspecified asthma, uncomplicated | CPT/HCPCS: 99212; G0463 ==

== ENCOUNTER 2025-04-19 10:16 | Emergency (ER) | payer MEDICAID, SELFPAY ==
[2025-04-19 10:38] VITALS: BP 150/86; PULSE 85; RESP 18; TEMP 36.9; O2SAT 99
--- NOTE | 2025-04-19 10:50 | XR_ITS ---
Examination: Duplex scan of the lower extremity, unilateral right Date and time of exam: April 19, 2025 1217 hours INDICATIONS: Right knee redness after spider bite and days ago Technique: Duplex scan of the extremity veins using B-mode/grayscale imaging and Doppler spectral analysis and color flow Attention is directed to internal echogenicity, compression and augmentation involving these veins, color flow assessment, spectral analysis Findings: Major deep venous structures in the extremity demonstrate normal course and caliber. There is no evidence of deep vein thrombosis. Normal color flow and spectral analysis Impression: Negative for DVT..
--- NOTE | 2025-04-19 10:50 | EDRME_ITS ---
Rapid Medical Screening Exam [facility] Arrival date/time: 04/19/25 10:16 64-year-old female with a history of hyperlipidemia, presents to the emergency room with a chief complaint of right knee swelling and tenderness after a spider bite that occurred a week ago. Patient was seen here in the emergency room and discharged with oral antibiotics and per patient her symptoms have gotten worse. I have greeted and performed a focused initial assessment of this patient. A comprehensive ED assessment and evaluation of the patient, analysis of all test results, and completion of the medical decision making process will be conducted by additional ED providers. Chief Complaint: Animal Bite Time Seen by Provider: 04/19/25 10:27 Vital signs: Vital Signs Temperature 98.5 F 04/19/25 10:38 Pulse Rate 85 04/19/25 10:38 Respiratory Rate 18 04/19/25 10:38 Blood Pressure 150/86 H 04/19/25 10:38 Pulse Oximetry (%) 99 04/19/25 10:38 Oxygen Delivery Method Room Air 04/19/25 10:38 Vital signs reviewed by provider: Yes
[2025-04-19 11:20] LABS: Lactate (Lactic Acid) 1.4 mMol/L (0.4-2.0)
[2025-04-19 11:21] LABS: Basophils # (Auto) 0.1 Thou/mm3 (0.0-0.2); Basophils % (Auto) 1 % (0-2.5); Eosinophils # (Auto) 0.1 Thou/mm3 (0.0-0.5); Eosinophils % (Auto) 2 % (0-10); Hematocrit 39.8 % (36.0-46.0); Hemoglobin 12.4 g/dL (12.0-16.0); Immature Granulocytes Auto 0.02 Thou/mm3 (0.00-0.00); Lymphocytes # (Auto) 1.5 Thou/mm3 (1.0-4.8); Lymphocytes % (Auto) 25 % (10-50); Mean Corpuscular HGB Conc 31.2 g/dl (31.0-37.0); Mean Corpuscular Hemoglobin 28.3 pg (25.0-35.0); Mean Corpuscular Volume 91 fL (80-100); Monocytes # (Auto) 0.7 Thou/mm3 (0.0-0.8); Monocytes % (Auto) 12 % (0-12); Neutrophils # (Auto) 3.7 Thou/mm3 (1.8-7.7); Neutrophils % (Auto) 60 % (37-80); Nucleated Red Blood Cell # 0.00 Thou/mm3 (0.00-0.00); Nucleated Red Blood Cell % 0 /100 WBC (0); Platelet Count 262 Thou/mm3 (140-440); RDW Standard Deviation 46.5 fL (36.4-46.3); Red Blood Count 4.38 Miln/mm3 (4.00-5.20); White Blood Count 6.2 Thou/mm3 (3.6-11.0)
[2025-04-19 11:49] LABS: Alanine Aminotransferase 21 U/L (10-49); Albumin, Serum 4.3 gm/dL (3.4-4.8); Albumin/Globulin Ratio 2.0 (1.2-2.2); Alkaline Phosphatase 74 U/L (46-116); Anion Gap 9 (7-16); Aspartate Amino Transferase 23 U/L (0-34); BUN/Creatinine Ratio 10 Ratio (12-20); Bilirubin,Total 0.4 mg/dL (0.3-1.2); Blood Urea Nitrogen 8 mg/dL (9-23); Calcium 9.9 mg/dL (8.3-10.6); Calcium (Corrected) 9.9 mg/dL (8.5-10.1); Carbon Dioxide 29.1 mMol/L (20.0-31.0); Chloride 104 mMol/L (98-107); Creatinine (Component) 0.8 mg/dL (0.6-1.3); Globulin 2.2 gm/dL (2.3-3.5); Glucose 116 mg/dL (74-106); Osmolality,Calculated 282 (275-295); Potassium 3.6 mMol/L (3.4-5.1); Procalcitonin 0.04 ng/ml (0.0-0.49); Sodium 142 mMol/L (136-145); Total Protein 6.5 gm/dL (5.7-8.2); eGFR > 60 See Note
--- NOTE | 2025-04-19 13:06 | EDNOTE_ITS ---
ED General RME/HPI General Chief complaint: Animal Bite Stated complaint: SPIDER BITE R) LEG 10 DAYS AGO, PAIN,DIFF. WALKING Time Seen by Provider: 04/19/25 10:27 Arrival date/time: 04/19/25 10:16 CC: Itching to her knee with pain that radiates down her leg HPI patient had onset after being bit by a spider , patient said seen by primary care doctor put her on antibiotics but his symptoms gotten worse. Patient denies any loss of sensation numbness or tingling in the right lower extremity. However patient states she has had intense itching to the knee area where the spider bite occurred. Patient denies fever chills chest pain shortness of breath or difficulty breathing. RME / HPI RME / HPI narrative: 04/19/25 10:16 64-year-old female with a history of hyperlipidemia, presents to the emergency room with a chief complaint of right knee swelling and tenderness after a spider bite that occurred a week ago. Patient was seen here in the emergency room and discharged with oral antibiotics and per patient her symptoms have gotten worse. I have greeted and performed a focused initial assessment of this patient. A comprehensive ED assessment and evaluation of the patient, analysis of all test results, and completion of the medical decision making process will be conducted by additional ED providers. Related Data Previous Rx's ?Medication ?Instructions ?Recorded atorvastatin 20 mg tablet 20 mg PO QDAY #90 tabs 09/10 diclofenac sodium 1 % topical gel 2 g topical QID PRN mild pain #100 01/06/25 (Voltaren Arthritis Pain) grams hydrochlorothiazide 25 mg tablet 25 mg PO QDAY #30 tab s 03/16/25 albuterol sulfate 90 mcg/actuation 2 puff inhalation Q 6H PRN 03/31/25 aerosol inhaler (Ventolin HFA) shortness of breath or wheezing #8.5 grams bismuth subcit K 140 See Rx Instructions PO PER P KG DIR 04/07/25 mg-metronidazole 125 #120 caps mg-tetracycline 125 mg cap (Pylera) meloxicam 15 mg tablet 15 mg PO QDAY #30 tabs 04/07 pantoprazole 20 mg tablet,delayed 20 mg PO BID 14 days #28 tabs 04/07/25 release (Protonix) amoxicillin 875 mg-potassium 1 tab PO BID 7 days #14 t abs 04/13/25 clavulanate 125 mg tablet amlodipine 10 mg tablet 10 mg PO QDAY #90 tabs 04/16 aspirin 81 mg tablet,delayed 81 mg PO QDAY #90 tabs release azelastine 0.05 % eye drops 1 drp Both eyes BID #6 mL 04/16/25 fluticasone propionate 230 2 puff inhalation BID #12 g svetlana 04/16/25 mcg-salmeterol 21 mcg/actuation HFA inhaler (Advair HFA) sertraline 100 mg tablet 100 mg PO QDAY #90 tabs 03/23 01/13 diphenhydramine HCl 25 mg capsule 25 mg PO TID PRN itc bg #10 caps 04/19/25 prednisone 20 mg tablet See Taper PO BID 3 days #6 t abs 04/19/25 Allergies Allergy/AdvReac Type Severity Reaction Status Date / Time No Known Allergies Allergy Verified 04/19/25 10:23 Review of Systems Review of Systems Narrative Review of Systems: GEN: No fever, no chills, no weight loss EYES: No discharge, no visual changes, no pain HEENT: No ear pain, no congestion, no sore throat PULM: No shortness of breath, no cough, no congestion CV: No chest pain, no dyspnea on exertion, no palpitations GI: No nausea, no vomiting, no diarrhea, no pain, no constipation : No frequency, no urgency, no dysuria MUSC/SKEL: No joint pain, no back pain SKIN: No rash PSYCH: No hallucinations, no depression HEME/LYMPH: No easy bleeding or bruising tendencies NEURO: No weakness, no headache Past Medical History Past Medical History NEUROLOGIC: Positive Cerebrovascular Accident; Negative Neurological Disorders, Transient Ischemic Attacks (TIA), Seizures or Ortega's Palsy CARDIAC: Positive Cardiac Disorders, Hypercholesterolemia, Hypertension and Varicose Veins; Negative Congestive Heart Failure, Edema or Cellulitis RESPIRATORY: Positive Asthma; Negative Chronic Obstructive Pulmonary Disease (COPD), Pneumonia, Tuberculosis or Sleep Apnea GASTROINTESTINAL: Positive Gastrointestinal Disorders, Gall Bladder Disease, Hemorrhoids, Gastroesophageal Reflux Disease and Obesity; Negative Hepatitis or Colorectal Cancer GENITOURINARY: Negative Genitourinary Disorders or Renal Disease REPRODUCTIVE: Positive Previous Pregnancies; Negative Breast Cancer MUSCULOSKELETAL: Positive Musculoskeletal Disorders and Arthritis; Negative Bone Cancer ENT: Positive Cataracts; Negative Deafness ENDOCRINE: Negative Endocrine Disorders, Diabetes Mellitus Type 1 or Diabetes Mellitus Type 2 HEMATOLOGIC: Positive Blood Disorders and Anemia; Negative Sickle Cell Disease PSYCHO/SOCIAL: Positive Depression and Anxiety OTHER HISTORY: Negative Hospitalization, Autoimmune Disease, Down Syndrome, Developmental Delay, Shingles, Falls, Blood Transfusions, Blood Transfusion Reaction, Anesthesia Reactions, Organ Transplant, Chemotherapy, Radiation Therapy, Hyperbaric Therapy, MRSA, VRSA, Vancomycin-Resistant Enterococci, Human Immunodeficiency Virus (HIV), Chicken Pox, Measles, Mumps, Clostridium Difficile, Cancer, Breast Cancer, Cervical Cancer, Colorectal Cancer, Lung Cancer or Ovarian Cancer Family History FAMILY HISTORY: Positive Family Psychiatric Problems, Family Respiratory Disorders, Family Cardiac Disorders, Family Cancer and Family Surgery; Negative Family Gastrointestinal Problems or Family Anesthesia Reaction Surgical History SURGICAL: Positive Abdominal Surgery, Joint Replacement, Hysterectomy and Tubal Ligation; Negative Cardiac Surgery, Pacemaker, Endocrine Surgery, Ear Surgery, Neurologic Surgery or Organ Transplant Social History SMOKING STATUS: Never smoker SUBSTANCE USE: does not use ED Exam Narrative Physical exam: [General: Obese not in any acute distress Head normocephalic HEENT: Within acceptable limits Neck is supple nontender Chest equal chest rise nontender to palpation Respiratory: Clear to auscultation no wheezes crackles or rubs CV: Rate rhythm is regular no murmurs rubs or clicks Abdomen is distended secondary to body habitus soft nontender no masses positive bowel sounds all 4 quadrants Back: No CVA tenderness no spinous process tenderness from cervical spine thoracic and lumbar spine Skin: Single vertical surgical scar well-healed to the right knee. No erythema no streaking no edema not warm to touch. Multiple abrasions to the anterior medial surface of the skin covering the patella, as well as the posterior fossa. These are consistent with scratch nelson which the patient admits she initiated due to the itching. Otherwise skin is intact no petechiae rash induration ulceration or crepitus Extremities: Moving all extremity against resistance cap refill less than 2 seconds neurosensory intact Neuro: Awake alert oriented x3 Glascow coma 15 no focal deficits] Course Course Course Narrative: I suspect the itching is secondary to a localized reaction with a delayed healing response. Patient was given a small amount of steroids and some Benadryl follow-up with her primary care doctor. Quality Measures none Orders Category Date Time Status US venous doppler LE RT Stat Exams 04/19/25 10:50 Completed Blood Culture (Lab) Stat Lab 04/19/25 11:00 Received CBC Stat Lab 04/19/25 11:05 Completed CMP [Comprehensive Metabolic Panel] Stat Lab 04/19/25 11:05 Completed Lactate (Lactic Acid) Stat Lab 04/19/25 11:05 Completed Procalcitonin Stat Lab 04/19/25 11:05 Completed Vital Signs Vital signs: Vital Signs Temperature 98.5 F 04/19/25 10:38 Pulse Rate 85 04/19/25 10:38 Respiratory Rate 18 04/19/25 10:38 Blood Pressure 150/86 H 04/19/25 10:38 Pulse Oximetry (%) 99 04/19/25 10:38 Oxygen Delivery Method Room Air 04/19/25 10:38 Discharge Plan Plan Patient Disposition: HOME (Self Care) Patient condition on transfer: Stable Prescriptions/Referrals Prescriptions/Med Rec: New prednisone 20 mg tablet See Taper PO BID 3 Days Qty: 6 0RF Taper: Prednisone Taper 20 mg DAILY for 2 Days and 0 Hour 10 mg DAILY for 2 Days and 0 Hour 5 mg DAILY for 7 Days and 0 Hour diphenhydramine HCl 25 mg capsule 25 mg PO TID PRN (Reason: itching) Qty: 10 0RF No Action atorvastatin 20 mg tablet 20 mg PO QDAY Qty: 90 0RF diclofenac sodium [Voltaren Arthritis Pain] 1 % gel 2 g topical QID PRN (Reason: mild pain) Qty: 100 0RF Rx Instructions: apply to area of concern bismuth subcit [id number] [Pylera] 140-125-125 mg capsule See Rx Instructions PO PER PKG DIR Qty: 120 0RF Rx Instructions: PO PER PKG DIR meloxicam 15 mg tablet 15 mg PO QDAY Qty: 30 0RF pantoprazole [Protonix] 20 mg tablet,delayed release (DR/EC) 20 mg PO BID 14 Days Qty: 28 0RF sertraline 100 mg tablet 100 mg PO QDAY Qty: 90 0RF aspirin 81 mg tablet,delayed release (DR/EC) 81 mg PO QDAY Qty: 90 0RF amlodipine 10 mg tablet 10 mg PO QDAY Qty: 90 0RF azelastine 0.05 % drops 1 drp Both eyes BID Qty: 6 0RF fluticasone propion-salmeterol [Advair HFA] 230-21 mcg/actuation HFA aerosol inhaler 2 puff INHALATION BID Qty: 12 5RF Rx Instructions: Directions in Ethiopian albuterol sulfate [Ventolin HFA] 90 mcg/actuation HFA aerosol inhaler 2 puff inhalation Q6H PRN (Reason: shortness of breath or wheezing) Qty: 8.5 2RF hydrochlorothiazide 25 mg tablet 25 mg PO QDAY Qty: 30 0RF amoxicillin-pot clavulanate 875-125 mg tablet 1 tab PO BID 7 Days Qty: 14 0RF Referrals: [facility] [employer] PROCESSOR,Tiff De Los Santos, B[employer]AN PROCESSOR [Primary Care Provider, Family Practice] - In 1 week Problem List Clinical Impression: Insect bite Patient/Caregiver Discharge Instructions Education Materials: ED Animal Bite (General) Print Language: Ethiopian Stand Alone Forms: Annita Award Info., Patient Portal Info Letter, Work/School Release PA/ELECTRIC POWER LINE EXAMINER Supervising Physician PA/ELECTRIC POWER LINE EXAMINER Supervising Physician: Alcides Gonzales ENP [facility] Medical Records reviewed [facility] Meds/Rx considered, not ordered None Labs/Rad/Tests considered, not ordered None Chronic Illness/Social Conditions Explain: Hypertension Labs Labs: interpreted by me Lab(s) Interpretation(s): CBC showed no acute leukocytosis anemia thrombocytopenia CMP shows no significant electrolyte imbalances mildly elevated glucose of 116 no transaminitis or T. bili elevation Lactic acid 1.4 Procalcitonin at 0.04. Imaging Imaging interpretation: interpreted by me Imaging Interpretation(s): Ultrasound of the leg shows no DVT as interpreted by me.
== END 2025-04-19 13:20 | disposition home or self-care (01) ==
PROVIDERS: Nurse Practitioner Family; Emergency Provider Family Medicine; PCP Nurse Practitioner Family
DX: S80.261A Insect bite (nonvenomous), right knee, initial encounter (principal); W57.XXXA Bitten or stung by nonvenomous insect and other nonvenomous arthropods, initial encounter
CPT/HCPCS: 36415; 80053; 83605; 84145; 85025; 87040; 93971; 99283

== ENCOUNTER 2025-04-26 15:03 | Emergency (ER) | payer MEDICAID, SELFPAY ==
--- NOTE | 2025-04-26 15:19 | XR_ITS ---
Examination: Duplex scan of the lower extremity, unilateral right complete Date and time of exam: April 26, 2025, 1529 hours INDICATIONS: Right leg swelling and pain today Technique: Duplex scan of the extremity veins using B-mode/grayscale imaging and Doppler spectral analysis and color flow Attention is directed to internal echogenicity, compression and augmentation involving these veins, color flow assessment, spectral analysis Findings: Major deep venous structures in the extremity demonstrate normal course and caliber. There is no evidence of deep vein thrombosis. Normal color flow and spectral analysis Impression: Negative for DVT..
[2025-04-26 15:20] VITALS: BP 124/77; PULSE 73; RESP 20; TEMP 37; O2SAT 95
--- NOTE | 2025-04-26 15:21 | XR_ITS ---
Examination: Knee, right , 3 views Technique: Knee AP, lateral, oblique 3 views Date and time of exam: April 26, 2025, 1525 hours INDICATIONS: Right knee pain several months. FINDINGS: Total right knee arthroplasty. Satisfactory alignment. No loosening of the prosthetic components Small knee effusion IMPRESSION: Total right knee arthroplasty with satisfactory alignment No fracture
--- NOTE | 2025-04-26 15:24 | PD.EDRME ---
Rapid Medical Screening Exam RME Arrival date/time: 04/26/25 15:03 64-year-old female with no known medical history presents to the emergency room with a chief complaint of swelling and tenderness to her right knee x 2 weeks I have greeted and performed a focused initial assessment of this patient. A comprehensive ED assessment and evaluation of the patient, analysis of all test results, and completion of the medical decision making process will be conducted by additional ED providers. Chief Complaint: Ankle/Foot Injury Time Seen by Provider: 04/26/25 15:13 Vital signs: Vital Signs Temperature 98.6 F 04/26/25 15:20 Pulse Rate 73 04/26/25 15:20 Respiratory Rate 20 04/26/25 15:20 Blood Pressure 124/77 04/26/25 15:20 Pulse Oximetry (%) 95 04/26/25 15:20 Oxygen Delivery Method Room Air 04/26/25 15:20 Vital signs reviewed by provider: Yes
[2025-04-26 16:07] LABS: Basophils # (Auto) 0.1 Thou/mm3 (0.0-0.2); Basophils % (Auto) 1 % (0-2.5); Eosinophils # (Auto) 0.1 Thou/mm3 (0.0-0.5); Eosinophils % (Auto) 2 % (0-10); Hematocrit 37.8 % (36.0-46.0); Hemoglobin 12.0 g/dL (12.0-16.0); Immature Granulocytes Auto 0.05 Thou/mm3 (0.00-0.00); Lymphocytes # (Auto) 1.9 Thou/mm3 (1.0-4.8); Lymphocytes % (Auto) 22 % (10-50); Mean Corpuscular HGB Conc 31.7 g/dl (31.0-37.0); Mean Corpuscular Hemoglobin 29.1 pg (25.0-35.0); Mean Corpuscular Volume 92 fL (80-100); Monocytes # (Auto) 1.1 Thou/mm3 (0.0-0.8); Monocytes % (Auto) 12 % (0-12); Neutrophils # (Auto) 5.6 Thou/mm3 (1.8-7.7); Neutrophils % (Auto) 63 % (37-80); Nucleated Red Blood Cell # 0.00 Thou/mm3 (0.00-0.00); Nucleated Red Blood Cell % 0 /100 WBC (0); Platelet Count 267 Thou/mm3 (140-440); RDW Standard Deviation 47.3 fL (36.4-46.3); Red Blood Count 4.13 Miln/mm3 (4.00-5.20); White Blood Count 8.8 Thou/mm3 (3.6-11.0)
[2025-04-26 16:28] LABS: Alanine Aminotransferase 14 U/L (10-49); Albumin, Serum 4.1 gm/dL (3.4-4.8); Albumin/Globulin Ratio 2.1 (1.2-2.2); Alkaline Phosphatase 81 U/L (46-116); Anion Gap 7 (7-16); Aspartate Amino Transferase 16 U/L (0-34); BUN/Creatinine Ratio 23 Ratio (12-20); Bilirubin,Total 0.3 mg/dL (0.3-1.2); Blood Urea Nitrogen 14 mg/dL (9-23); Calcium 8.8 mg/dL (8.3-10.6); Calcium (Corrected) 8.8 mg/dL (8.5-10.1); Carbon Dioxide 29.8 mMol/L (20.0-31.0); Chloride 106 mMol/L (98-107); Creatinine (Component) 0.6 mg/dL (0.6-1.3); Globulin 2.0 gm/dL (2.3-3.5); Glucose 101 mg/dL (74-106); Osmolality,Calculated 285 (275-295); Potassium 3.8 mMol/L (3.4-5.1); Sodium 143 mMol/L (136-145); Total Protein 6.1 gm/dL (5.7-8.2); eGFR > 60 See Note
[2025-04-26 17:10] LABS: INR 0.9 (0.9-1.3); Partial Thromboplastin Time 25.3 Seconds (22.0-36.0); Prothrombin Time 10.0 Seconds (9.0-12.2)
--- NOTE | 2025-04-26 18:36 | EDNOTE_ITS ---
ED Extremity Problem RME/HPI General Chief complaint: Ankle/Foot Injury Stated complaint: PAIN IN R) FOOT Time Seen by Provider: 04/26/25 15:13 Arrival date/time: 04/26/25 15:03 RME / HPI RME / HPI Narrative: 04/26/25 15:03 64-year-old female with no known medical history presents to the emergency room with a chief complaint of swelling and tenderness to her right knee x 2 weeks I have greeted and performed a focused initial assessment of this patient. A comprehensive ED assessment and evaluation of the patient, analysis of all test results, and completion of the medical decision making process will be conducted by additional ED providers. See [facility] for Dr. Cortez's HPI Documentation. Related Data Previous Rx's ?Medication ?Instructions ?Recorded atorvastatin 20 mg tablet 20 mg PO QDAY #90 tabs 09/10 diclofenac sodium 1 % topical gel 2 g topical QID PRN mild pain #100 01/06/25 (Voltaren Arthritis Pain) grams hydrochlorothiazide 25 mg tablet 25 mg PO QDAY #30 tab s 03/16/25 albuterol sulfate 90 mcg/actuation 2 puff inhalation Q 6H PRN 03/31/25 aerosol inhaler (Ventolin HFA) shortness of breath or wheezing #8.5 grams bismuth subcit K 140 See Rx Instructions PO PER P KG DIR 04/07/25 mg-metronidazole 125 #120 caps mg-tetracycline 125 mg cap (Pylera) meloxicam 15 mg tablet 15 mg PO QDAY #30 tabs 04/07 amlodipine 10 mg tablet 10 mg PO QDAY #90 tabs 04/16 aspirin 81 mg tablet,delayed 81 mg PO QDAY #90 tabs release azelastine 0.05 % eye drops 1 drp Both eyes BID #6 mL 04/16/25 fluticasone propionate 230 2 puff inhalation BID #12 g svetlana 04/16/25 mcg-salmeterol 21 mcg/actuation HFA inhaler (Advair HFA) sertraline 100 mg tablet 100 mg PO QDAY #90 tabs 09/2 6/25 diphenhydramine HCl 25 mg capsule 25 mg PO TID PRN itc bg #10 caps 04/19/25 acetaminophen 300 mg-codeine 30 mg 2 tab PO Q8H PRN pa in #20 tabs 04/26/25 tablet Allergies Allergy/AdvReac Type Severity Reaction Status Date / Time No Known Allergies Allergy Verified 04/26/25 15:09 Review of Systems Review of Systems Systems Reviewed: All systems reviewed, normal except as documented Past Medical History Past Medical History NEUROLOGIC: Positive Cerebrovascular Accident CARDIAC: Positive Hypercholesterolemia, Hypertension and Varicose Veins RESPIRATORY: Positive Asthma GASTROINTESTINAL: Positive Gall Bladder Disease, Hemorrhoids, Gastroesophageal Reflux Disease and Obesity MUSCULOSKELETAL: Positive Arthritis ENT: Positive Cataracts HEMATOLOGIC: Positive Anemia PSYCHO/SOCIAL: Positive Depression and Anxiety Surgical History SURGICAL: Positive Abdominal Surgery, Joint Replacement, Hysterectomy and Tubal Ligation ED Exam Narrative Physical exam: See MDM for Dr. Cortez's Physical Exam Documentation. Course Quality Measures none Orders Category Date Time Status US venous doppler LE RT Stat Exams 04/26/25 15:19 Completed XR knee comp RT 4V Stat Exams 04/26/25 15:21 Completed CBC Stat Lab 04/26/25 15:57 Completed CMP [Comprehensive Metabolic Panel] Stat Lab 04/26/25 15:57 Completed PT [Prothrombin Time with INR] Stat Lab 04/26/25 15:57 Completed PTT [Partial Thromboplastin Time] Stat Lab 04/26/25 15:57 Completed ACETAMINOPHEN w/COD 300-30 [Tylenol w/Cod #3] Med 04/26/25 18:34 Discontinued 2 tab PO X1 ONE Lidocaine 5% Patch Med 04/26/25 18:34 Discontinued 2 patch TOP X1 ONE Vital Signs Vital signs: Vital Signs Temperature 98.6 F 04/26/25 15:20 Pulse Rate 73 04/26/25 15:20 Respiratory Rate 20 04/26/25 15:20 Blood Pressure 124/77 04/26/25 15:20 Pulse Oximetry (%) 95 04/26/25 15:20 Oxygen Delivery Method Room Air 04/26/25 15:20 Extremity Problem MDM Narrative [facility] Narrative:: This section includes all my notes and documentations, including HPI, PE, and ED course. Tarun Cortez MD HPI: 64 y/o female with Hx of HTN, CVA, Varicose Veins, and Arthritis and SHx of Right Knee Arthroplasty presents with right lower leg pain x 8 days. No other complaints. ROS: All negative except as documented in HPI. Physical Exam: General: Alert and oriented. No acute distress when remaining still. Eyes: Conjunctivae and lids clear. ENT: No nasal congestion. Neck: Supple. Heart: RRR. Lungs: No respiratory distress. Good air movement. No rhonchi, wheezing, rales. Legs: No clubbing, cyanosis, edema. Skin: Warm and dry. Neuro: Alert and oriented X 3. Musculoskeletal: All major joints and bones are not tender with no limited ROM. I reviewed all diagnostic test results: My interpretation of the Right Knee x-ray is no fracture. My review of the Venous Doppler Study report is no DVT. Blood tests unremarkable At this point, diagnoses include: Right Leg Pain Treatment here included: Tylenol with Codeine #3 X 2 Lidocaine 5% Patches She felt much better. Recommended outpatient care. Based on my best medical judgment, made decision no further evaluation or treatment indicated at this time. Patient understands and agrees to the discharge instructions customized and printed, see below. Discharge Instructions from Dr. Cortez printed for you: 1. Exact cause of your right knee/leg pain was not determined. 2. But there is no life-threatening condition or very serious condition. Such as blood clots or broken bone. 3. Weightbearing as tolerated. 4. Apply ice or heat if helpful. 5. Lidocaine patches and Tylenol with codeine for pain. 6. See a private doctor on 04/27/2025 for recheck. Ask to review all test results and official radiology reports, to make sure you receive all necessary follow-ups and monitoring. Ask to help find the cause/treatment of your pain. With more care not available here in the ER. Such as MRI imaging and referrals to see specialists. 7. Seek immediate medical care with worsening or with any concerns. Tarun Cortez MD Patient data External records reviewed:: [facility] previous records (Reviewed prior ED records from 04/19/25. Patient was seen for Insect bite.) Clinical information provided by:: patient Social determinants that could affect healthcare access:: none Patient has the following chronic illnesses:: Cerebrovascular Accident, Hypercholesterolemia, Hypertension, Varicose Veins, Asthma, Gall Bladder Disease, Hemorrhoids, Gastroesophageal Reflux Disease, Obesity, Arthritis, Cataracts, Anemia, Depression and Anxiety How is presenting disease/condition affected by chronic disease/condition?: exacerbated by Evaluation data The following diagnostics were reviewed and interpreted by me:: lab results and radiology exam(s) Lab and/or radiology exams considered but not ordered:: None Interpretation Summary: I reviewed all diagnostic test results: My interpretation of the Right Knee x-ray is no fracture. My review of the Venous Doppler Study report is no DVT. Blood tests unremarkable Medications / Prescriptions Medications or Prescriptions considered but not ordered:: None Medication administrations:: Medication Administration History Discontinued Medications Acetaminophen/Codeine Phosphate (Acetaminophen W/Cod 300-30 Tablet) 2 tab PO X1 ONE Stop: 04/26/25 18:35 Last Admin: 04/26/25 18:49 Dose: 2 tab Documented By: DOMINIK Lidocaine (Lidocaine 5% 1 Patch) 2 patch TOP X1 ONE Stop: 04/26/25 18:35 Last Admin: 04/26/25 18:52 Dose: Not Given Documented By: DOMINIK Non-Admin Reason: Patient Refused Tylenol with Codeine #3 X 2 Lidocaine 5% Patches Consultations Consultation(s) initiated? (list below): No Diagnosis Extremity Problem Differential Diagnosis: gout, cellulitis, lower extremity edema and deep vein thrombosis of lower extremity Most likely diagnosis given after review of the tests above:: Musculoskeletal right leg pain Admission Indicated Admission indicated?: not indicated Explain why admission is indicated or not indicated:: With significant improvement and no condition needing emergent intervention, there was no indication for admission. Admission Request Was there a request for admission?: No Disposition Plan Disposition Plan: Discharge Discharge Attestation Discharge Attestation: The patient and all family members were given an opportunity to ask questions and understood the discharge instructions. Discharge instructions specifically effects, indications for sooner follow up or return to the emergency department, and the expected course of current diagnosis. Patient condition: Stable Discharge Plan Plan Patient Disposition: HOME (Self Care) Prescriptions/Referrals Prescriptions/Med Rec: New acetaminophen-codeine 300-30 mg tablet 2 tab PO Q8H MDD 6 PRN (Reason: pain) Qty: 20 0RF No Action atorvastatin 20 mg tablet 20 mg PO QDAY Qty: 90 0RF diclofenac sodium [Voltaren Arthritis Pain] 1 % gel 2 g topical QID PRN (Reason: mild pain) Qty: 100 0RF Rx Instructions: apply to area of concern bismuth subcit [id number] [Pylera] 140-125-125 mg capsule See Rx Instructions PO PER PKG DIR Qty: 120 0RF Rx Instructions: PO PER PKG DIR meloxicam 15 mg tablet 15 mg PO QDAY Qty: 30 0RF sertraline 100 mg tablet 100 mg PO QDAY Qty: 90 0RF aspirin 81 mg tablet,delayed release (DR/EC) 81 mg PO QDAY Qty: 90 0RF amlodipine 10 mg tablet 10 mg PO QDAY Qty: 90 0RF azelastine 0.05 % drops 1 drp Both eyes BID Qty: 6 0RF fluticasone propion-salmeterol [Advair HFA] 230-21 mcg/actuation HFA aerosol inhaler 2 puff INHALATION BID Qty: 12 5RF Rx Instructions: Directions in Ivorian albuterol sulfate [Ventolin HFA] 90 mcg/actuation HFA aerosol inhaler 2 puff inhalation Q6H PRN (Reason: shortness of breath or wheezing) Qty: 8.5 2RF hydrochlorothiazide 25 mg tablet 25 mg PO QDAY Qty: 30 0RF diphenhydramine HCl 25 mg capsule 25 mg PO TID PRN (Reason: itching) Qty: 10 0RF Referrals: [facility],Tiff De Los Santos ROPE CUTTER [Primary Care Provider, Family Practice] - In 1 week Problem List Clinical Impression: Right leg pain Patient/Caregiver Discharge Instructions Discharge Activity: activity as tolerated Education Materials: ED Knee Sprain Additional Instructions: Discharge Instructions from Dr. Cortez printed for you: 1. Exact cause of your right knee/leg pain was not determined. 2. But there is no life-threatening condition or very serious condition. Such as blood clots or broken bone. 3. Weightbearing as tolerated. 4. Apply ice or heat if helpful. 5. Lidocaine patches and Tylenol with codeine for pain. 6. See a private doctor on 04/27/2025 for recheck. Ask to review all test results and official radiology reports, to make sure you receive all necessary follow-ups and monitoring. Ask to help find the cause/treatment of your pain. With more care not available here in the ER. Such as MRI imaging and referrals to see specialists. 7. Seek immediate medical care with worsening or with any concerns. Instrucciones de drew del Dr. Cortez impresas para usted: 1. No se freeman determinado la causa exacta de gupta dolor en la rodilla/pierna derecha. 2. No existe ninguna afecci?n potencialmente mortal ni muy grave. Ángel co?gulos de liz o fractura de hueso. 3. Carga de peso seg?n lo tolere. 4. Aplique hielo o calor si le resulta ?til. 5. Parches de lidoca?na y Tylenol con code?na para el dolor. 6. Consulte con un m?dico particular el 01/28/2025 para ktahie nueva revisi?n. Solicite la revisi?n de todos los resultados de las pruebas y los informes radiol?gicos oficiales para asegurarse de recibir todos los seguimientos y la monitorizaci?n necesarios. Solicite ayuda para encontrar la causa/tratamiento de gupta dolor. Con atenci?n adicional que no est? disponible aqu? en urgencias. [place] resonancias magn?savita y derivaciones a especialistas. 7. Busque atenci?n m?dica inmediata si el dolor empeora o tiene alguna inquietud. Print Language: Ivorian Stand Alone Forms: Annita Award Info., Patient Portal Info Letter
[2025-04-26] MEDS: ACETAMINOPHEN w/COD 300-30 TABLET 2 TAB PO (18:49)
== END 2025-04-26 18:54 | disposition home or self-care (01) ==
PROVIDERS: Nurse Practitioner Family; Emergency Provider Emergency Medicine; PCP Nurse Practitioner Family
DX: M79.604 Pain in right leg (principal); M25.561 Pain in right knee
CPT/HCPCS: 36415; 73564; 80053; 85025; 85610; 85730; 93971; 99283; A9270

== ENCOUNTER 2025-04-29 07:15 | Day surgery (SDC) | payer MEDICAID, SELFPAY ==
--- NOTE | 2025-04-27 07:00 | EKG_ITS ---
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
[2025-04-27 07:47] VITALS: BMI 39.4
[2025-04-29] VITALS (17 sets, daily range): BP systolic 113–171; BP diastolic 70–113; PULSE 78–96; RESP 12–21; TEMP 36.3–36.7; O2SAT 93–97; BMI 39.4
[2025-04-29] MEDS: ALBUTEROL RT 2.5 MG/3 ML NEBU INH ×2 (08:07→11:03)
--- NOTE | 2025-04-29 09:50 | PD.SUROPNT ---
Date of Procedure 04/29/25 Pre Op Diagnosis Symptomatic varicose veins left lower extremity Post Op Diagnosis Same as pre-op diagnosis Procedure Varicose vein excisions left lower extremity through 23 separate incisions Findings All marked varicose veins were successfully removed or disrupted Procedure Description With the patient standing in the preop area or varicose veins in the left leg to be removed were marked with a sharpie pen. The patient was brought to the operating room and general anesthesia was induced. A timeout was performed. The veins were removed by making a small skin anibal in the marked areas with a #11 blade then bluntly enlarging the incision with a mosquito clamp and sequentially grabbing and excising or disrupting the veins. But all marked veins were successfully removed or disrupted hemostasis was obtained and the leg was cleaned and the incisions were reapproximated with Steri-Strips. Gauze Curlex and an Mirza wrap were then applied to the leg. The patient woke well from anesthesia and was moved to recovery in stable condition having tolerated the procedure well Anesthesia other (Laryngeal mask anesthesia) Pathology / specimen Other (Left leg varicose veins) Estimated Blood Loss 100 Condition Stable Disposition PACU Surgeon Odell Quintanilla MD Surgical Staff Operation Date: 04/29/25 08:30 Case Staff Anesthesiologist: Carlos Shah RN First Assistant: Luz Marina Troncoso
--- NOTE | 2025-04-29 10:07 | SUR.PHASEI ---
pt received from OR in recovery bay 7. pt asleep but responds to voice, breathing unlabored on oxymask 6l. v/s stable. pt dressing to left lower extremity cdi. report received from Meredith BERKOWITZ and Dr. Shah.
--- NOTE | 2025-04-29 10:50 | SUR.PHASEII ---
pt able to tolerate oral fluids without difficulty swallowing or nausea/vomiting.
--- NOTE | 2025-04-29 12:28 | SUR.PHASEII ---
1155: pt lying in rney with eyes closed, breathing unlabored, VS stable, dressing to left lower extremity clean, dry, and intact, report from Donnell BERKOWITZ 1228: report to Donnell BERKOWITZ
--- NOTE | 2025-04-29 12:50 | SUR.PHASEII ---
pt ambulated, dressing inspected signs of bleeding noted. pressure held for 5 mins, bleeding stopped. Dr. Quintanilla informed. Rn instructed to rewrap dressing using Coband. Dressing applied no bleeding noted after dressing reapplied.
--- NOTE | 2025-04-29 13:10 | SUR.PHASEII ---
pt awake and alert, breathing unlabored on room air. v/s stable. pt dressing to left lower extremity cdi. pt able to ambulate to wheelchair with steady gait. d/c instructions given with daughter Lesly in room using in house japanese interpreter Pauline, all questions answered. pt d/c via wheelchair with all belongings.
== END 2025-04-29 13:10 | disposition home or self-care (01) ==
PROVIDERS: PCP Nurse Practitioner Family; Referring Provider Surgery Vascular Surgery; Visit Provider Surgery Vascular Surgery
PROC: (CPT 37785; principal; 2025-04-29 08:30)
DX: I83.812 Varicose veins of left lower extremity with pain (principal); Z01.810 Encounter for preprocedural cardiovascular examination
CPT/HCPCS: 37766; 80053; 85025; 85610; 85730; 93005; A4649; J0131; J0690; J1100; J2250; J2371; J2405; J2704; J3010; J3490; A9270; J1920

== ENCOUNTER → 2025-05-06 | Outpatient (BNVA) | payer MEDICAID, SELFPAY | END | disposition home or self-care (01) | PROVIDERS: PCP Nurse Practitioner Family; Referring Provider Nurse Practitioner Family; Visit Provider Nurse Practitioner Family | DX: Z76.0 Encounter for issue of repeat prescription (principal); I10 Essential (primary) hypertension; M25.561 Pain in right knee; G89.29 Other chronic pain; Z23 Encounter for immunization | CPT/HCPCS: 90471; 90686; 99213 ==

== ENCOUNTER 2025-05-10 12:56 | Inpatient (IN) | payer MEDICAID, SELFPAY ==
[2025-05-10] VITALS (63 sets, daily range): BP systolic 117–192; BP diastolic 54–93; PULSE 72–93; RESP 12–96; TEMP 36.5–37.1; O2SAT 93–99; BMI 42.2
--- NOTE | 2025-05-10 13:01 | PD.EDAMS ---
Altered Mental Status RME/HPI General Chief Complaint: Altered Mental Status Stated Complaint: AMS Time Seen by Provider: 05/10/25 13:01 Arrival date/time: 05/10/25 12:56 Limitations: altered mental status RME / HPI RME / HPI narrative: Patient is a 64-year-old female with medical history notable for hypertension, asthma hyperlipidemia, prior TIA that is in emerged primary concerns for confusion. Per EMS 911 was called because patient was confused. Patient was answering questions inappropriately. I spoke with patient's daughter, states that the patient woke up fine, and all of sudden look like she was going to pass out, and was unable to speak. Shortly thereafter patient recovered her ability to speak however was answering questions and appropriately and did not improve. Family was concerned that she might have become stressed out when she looked at photos of her that 2 months ago suddenly. However per the family this has never happened to her before. And when her she did not have any episodes of acute stress reaction or becoming so overwhelmed that she had symptoms similar to today. Per patient's daughter, patient has not had any cough, fever, no complaints of chest pain or abdominal pain. Related Data Home Medications ?Medication ?Instructions ?Recorded ?Confirmed sertraline 100 mg tablet (Zoloft) 100 mg PO QDAY 04/27/25 05/06/25 Previous Rx's ?Medication ?Instructions ?Recorded albuterol sulfate 90 mcg/actuation 2 puff inhalation Q6H PRN 03/31/25 aerosol inhaler (Ventolin HFA) shortness of breath or wheezing #8.5 grams aspirin 81 mg tablet,delayed 81 mg PO QDAY #90 tabs 04/16/25 release fluticasone propionate 230 2 puff inhalation BID #12 grams 04/16/25 mcg-salmeterol 21 mcg/actuation HFA inhaler (Advair HFA) amlodipine 10 mg tablet 10 mg PO QDAY #90 tabs 05/06/25 atorvastatin 20 mg tablet 20 mg PO QDAY #90 tabs 05/06/25 Allergies Allergy/AdvReac Type Severity Reaction Status Date / Time No Known Allergies Allergy Verified 05/06/25 10:54 ED Exam General Limitations: Present altered mental status Head Head exam: Present atraumatic and normocephalic Eye Eye exam: Present normal appearance (Mild right sided mouth droop) and PERRL ENT ENT exam: Present normal exam and normal oropharynx Neck Neck exam: Present normal inspection Chest Chest inspection: Present symmetric chest wall rise Respiratory Respiratory exam: Present normal lung sounds bilaterally; Absent respiratory distress Cardiovascular Cardiovascular exam: Present normal rhythm Abdominal Exam Abdominal exam: Present soft; Absent distention or tenderness Extremities Exam Extremities exam: Present normal inspection and full ROM; Absent tenderness Neurological Exam Neurological exam: Present alert and other (Patient moving all extremities, cranial nerves grossly intact, mostly aphasic, intermittently answers questions however inappropriately) Psychiatric Psychiatric exam: Present flat affect Skin Skin exam: Present warm, dry and intact Course Quality Measures none Orders Category Date Time Status Bedside Blood Glucose NOW Care 05/10/25 13:08 Active Director Patient NOW Care 05/10/25 13:08 Active Continuous Pulse Oximetry NOW Care 05/10/25 13:08 Completed EKG (ED ONLY) *Do not use* NOW Care 05/10/25 13:08 Completed In and Out Catheter NEEDED Care 05/10/25 13:08 Active Insert IV NOW Care 05/10/25 13:08 Active NIH Stroke Scale Q4HX8,QSHIFT Care 05/10/25 13:52 Active NIH Stroke Scale now Care 05/10/25 13:08 Active NPO NOW Care 05/10/25 13:08 Active Neuro Check Q15M Care 05/10/25 13:52 Active Neuro Check Q1HR Care 05/10/25 13:08 Active Nurse Swallow Screen x1 Care 05/10/25 13:08 Active Vital Signs Q5M Care 05/10/25 13:42 Active Consult to Neurology / Tele-Neurology Routine Cons 05/10/25 13:[address] angio stroke protocol Stat Exams 05/10/25 13:[address] stroke protocol Stat Exams 05/10/25 13:08 Completed EKG (ED Only) Stat Exams 05/10/25 13:08 Draft XR chest 1V portable Stat Exams 05/10/25 13:08 Completed Ammonia Stat Lab 05/10/25 13:56 Completed CBC Stat Lab 05/10/25 13:56 Completed Comprehensive Metabolic Panel Stat Lab 05/10/25 13:56 Completed Drug Screen,Urine Stat Lab 05/10/25 13:08 Ordered HCG Titer if Positive Stat Lab 05/10/25 13:56 Completed Magnesium Stat Lab 05/10/25 13:56 Completed Partial Thromboplastin Time Stat Lab 05/10/25 13:56 Completed Prothrombin Time with INR Stat Lab 05/10/25 13:56 Completed T4 (Thyroxine) Stat Lab 05/10/25 13:56 Received TSH [Thyroid Stimulating Hormone] Stat Lab 05/10/25 13:56 Completed Troponin I Stat Lab 05/10/25 13:56 Completed UA, C/S IF [Urinalysis, C/S if Indicated] Stat Lab 05/10/25 13:12 Ordered Labetalol IV [Trandate IV] Med 05/10/25 13:37 Active 10 mg IVP PRNMRX1 PRN Labetalol IV [Trandate IV] Med 05/10/25 13:37 Active 10 mg IVP PRNMRX1 PRN Nicardipine/Ns 20Mg Ivpb [Cardene Ivpb] Med 05/10/25 13:37 Active 20 mg in 200 ml IV 5 mg/hr POTASSIUM CHL 10 mEq IVPB [Kcl Ivpb] Med 05/10/25 14:40 Active 10 meq in 100 ml IV Q1H Tenecteplase Inj [TNKase Inj] Med 05/10/25 13:37 Discontinued 25 mg IV X1 ONE Tenecteplase Inj [TNKase Inj] Med 05/10/25 13:40 Discontinued 50 mg .ROUTE .STK-MED ONE Oxygen Delivery NOW RT 05/10/25 13:08 Active Vital Signs Vital signs: Vital Signs Temperature 98.5 F 05/10/25 13:05 Pulse Rate 82 05/10/25 13:05 Respiratory Rate 18 05/10/25 13:05 Blood Pressure 167/80 H 05/10/25 13:05 Pulse Oximetry (%) 95 05/10/25 13:05 Oxygen Delivery Method Room Air 05/10/25 13:05 Altered Mental Status MDM Narrative MDM Narrative:: Patient last known well was approximately 12:45 PM. Patient is a 64-year-old female to the [facility] from with concerns with acute confusion. Vital signs and exam as listed. Concern for intracranial hemorrhage, metabolic disturbance, stroke, among others. Patient was activated as a stroke alert, ordered labs EKG CT brain, CT angio consult neurology. CT brain unremarkable, teleneurologist evaluated patient recommend tenecteplase. Teleneurologist spoke with patient's daughter at bedside which is her decision maker. I also spoke with the patient's daughter. She would like to move forward with tenecteplase. Patient does not have any contraindications to tenecteplase at this time. CT angio of the head and neck without any evidence of a large vessel occlusion. EKG performed today at 1351 notable for sinus rhythm, heart rate 75, normal intervals, nonspecific T wave changes, not a cardiac alert. 2:10p reevaluated patient, patient neuroexam unchanged. Blood pressure at goal. Labs without any acute hematologic or significant metabolic abnormality. Patient does have a mild hypokalemia will replete in the emergency department. 2:39p discussed case with on-call hot wort settler Dr. Horta, kindly accepted patient for admission. Patient data External records reviewed:: [facility] previous records Clinical information provided by:: patient Social determinants that could affect healthcare access:: none Patient has the following chronic illnesses:: See MDM How is presenting disease/condition affected by chronic disease/condition?: exacerbated by Evaluation data The following diagnostics were reviewed and interpreted by me:: lab results, radiology exam(s) and EKG tracing(s) Lab and/or radiology exams considered but not ordered:: None Interpretation Summary: See MDM Medications / Prescriptions Medications or Prescriptions considered but not ordered:: None Medication administrations:: Medication Administration History Nicardipine/Sodium Chloride (Cardene Ivpb) 20 mg in 200 mls @ 50 mls/hr IV .Q4H PRN; Protocol PRN Reason: Per Nicardipine Stroke Protocol Stop: 06/09/25 13:36 Potassium Chloride (Kcl Ivpb) 10 meq in 100 mls @ 100 mls/hr IV Q1H RAZA Stop: 05/10/25 16:39 Labetalol HCl (Labetalol Inj 5 Mg/Ml Vial 20 Ml) 10 mg IVP PRNMRX1 PRN PRN Reason: SBP > 185 mmHg and/or DBP > 110 Labetalol HCl (Labetalol Inj 5 Mg/Ml Vial 20 Ml) 10 mg IVP PRNMRX1 PRN PRN Reason: SBP > 180 mmHg or DBP > 105 Discontinued Medications Tenecteplase (Tenecteplase Inj 50 Mg Vial) 25 mg IV X1 ONE Stop: 05/10/25 13:38 Last Admin: 05/10/25 13:44 Dose: 25 mg Documented By: XOCHITL Co-signed By: YASMEEN Tenecteplase (Tenecteplase Inj 50 Mg Vial) Confirm Administered Dose 50 mg .ROUTE .STK-MED ONE Stop: 05/10/25 13:41 Last Admin: 05/10/25 14:02 Dose: Not Given Documented By: XOCHITL Non-Admin Reason: Duplicate Medication on eMAR See above Consultations Consultation(s) initiated? (list below): Yes Diagnosis Differential diagnosis altered mental status: other Most likely diagnosis given after review of the tests above:: Stroke, hypokalemia Admission Indicated Admission indicated?: indicated Admission Request Was there a request for admission?: Yes Admission Attestation Admission request attestation: Discussed case with [] from Hospitalist service regarding admission. Discussed patients ED course, exam findings, labs, and radiology results. The Hospitalist [agrees,declines] to accept the patient for admission. Disposition Plan Disposition Plan: Admit Critical Care Time Critical Care Time Critical Care Time: Yes Total Critical Care Time (min.): 45 Attestation: Due to a high probability of clinically significant, life threatening deterioration, the patient required my highest level of preparedness to intervene emergently and I personally spent this critical care time directly and personally managing the patient. This critical care time included obtaining a history; examining the patient; pulse oximetry; ordering and review of studies; arranging urgent treatment with development of a management plan; evaluation of patient's response to treatment; frequent reassessment; and, discussions with other providers. This critical care time was performed to assess and manage the high probability of imminent, life-threatening deterioration that could result in multi-organ failure. It was exclusive of separately billable procedures and treating other patients and teaching time. Please see MDM section and the rest of the note for further information on patient assessment and treatment. Discharge Plan Plan Patient Disposition: HOME (Self Care) Prescriptions/Referrals Prescriptions/Med Rec: No Action aspirin 81 mg tablet,delayed release (DR/EC) 81 mg PO QDAY Qty: 90 0RF fluticasone propion-salmeterol [Advair HFA] 230-21 mcg/actuation HFA aerosol inhaler 2 puff INHALATION BID Qty: 12 5RF Rx Instructions: Directions in Vincentian amlodipine 10 mg tablet 10 mg PO QDAY Qty: 90 0RF atorvastatin 20 mg tablet 20 mg PO QDAY Qty: 90 0RF albuterol sulfate [Ventolin HFA] 90 mcg/actuation HFA aerosol inhaler 2 puff inhalation Q6H PRN (Reason: shortness of breath or wheezing) Qty: 8.5 2RF sertraline [Zoloft] 100 mg tablet 100 mg PO QDAY Problem List Clinical Impression: Stroke, Aphasia Patient/Caregiver Discharge Instructions Print Language: Vincentian Stand Alone Forms: Annita Award Info., Patient Portal Info Letter
--- NOTE | 2025-05-10 13:08 | XR_ITS ---
Examination: CTA carotids with intravenous contrast CTA brain, head with intravenous contrast. 2-D sagittal, coronal reconstructions. 3-D reconstructions. Exam date and time: May 10, 2025, 1328 hours INDICATIONS: Stroke alert, onset focal neurologic deficit beginning 1 hour ago CTDI: vol (mGy) 50.3 DLP: (mGycm) 972 Technique: Multiple CTA axial brain, head carotid images post intravenous contrast injection 75 cc, [id number]. 2-D sagittal, coronal reconstructions. 3-D reconstructions, 3-D post processing including vascular maximum intensity projection images. Low dose protocols were performed. One or more of the following dose reduction techniques were used; automated exposure control, adjustment of the mA and/or KV according to patient size, use of iterative reconstruction technique. Findings: No significant common carotid carotid bifurcation or internal carotid artery stenoses Dominant left vertebral artery no critical stenoses Intracranial vertebral arteries basilar artery posterior cerebral branches fill with no large vessel occlusions No large vessel occlusions involving middle cerebral or anterior cerebral arteries IMPRESSION: No significant neck arterial stenoses No cerebral large vessel arterial occlusions or thrombus
--- NOTE | 2025-05-10 13:08 | XR_ITS ---
Examination: CT brain head without contrast. 2-D sagittal coronal reconstructions Date and time of exam: May 10, 2025, 1316 hours, comparison September 19, 2019 INDICATIONS: Stroke alert, onset of altered mental status today CTDI: vol (mGy): 50.2 DLP: (mGycm): 970 Technique: Multiple CT axial sections of the brain have been obtained, 5 mm slice thickness. Contrast has not been administered. 2-D sagittal, coronal reconstructions have been obtained Low dose protocols were performed. One or more of the following dose reduction techniques were used; automated exposure control, adjustment of the mA and/or KV according to patient size, use of iterative reconstruction technique. Findings: No significant ventricular enlargement. Intra-axial or extra-axial hemorrhage density is not seen. No mass effect or midline shift Basal cisterns are not remarkable. Fourth ventricle is midline. Cranial vault intact. Impression: Negative for acute hemorrhage, mass effect or midline shift
--- NOTE | 2025-05-10 13:08 | XR_ITS ---
EXAMINATION: AP chest single view TECHNIQUE: AP portable upright chest single view Date and time: May 10, 2025, 1409 hours INDICATIONS: Stroke alert today FINDINGS: Minor prominence left ventricle Moderate vascular congestion. No aspiration pneumonia. Prominent osteopenia IMPRESSION: Moderate vascular congestion
--- NOTE | 2025-05-10 13:08 | EKG_ITS ---
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
[2025-05-10] MEDS: TENECTEPLASE INJ 50 MG VIAL 25 MG IV (13:44)
--- NOTE | 2025-05-10 14:07 | ESCONSULT_ITS ---
Tele Neuro Consultation Consultation Date 05/10/25 Most Recent Vital Signs Last Vital Signs Temp 98.5 F 05/10/25 13:05 Pulse 79 05/10/25 14:00 Resp 16 05/10/25 14:00 BP 173/78 H 05/10/25 14:00 Pulse Ox 97 05/10/25 14:00 O2 Del Method Room Air 05/10/25 14:00 Consultation Narrative [facility] TeleNeurology Consult Services Patient Name:???jesus mathis Date of :???1960 Identification Number:??? Date of Service:???05/10/2025 13:11:12 Diagnosis:?I63.89 - Cerebrovascular accident (CVA) due to other mechanism (HCCC) Impression: ?Jesus is a 64 year old woman with signs and symptoms of an acute left MCA cortical ischemic stroke. Her daughter was able to provide history to clear her mother of contraindications. Her daughter understood the risk and benefits of the medication TNK and wished to proceed with the administration. ? ? Our recommendations are outlined below. Recommendations: IV Tenecteplase recommended. I confirmed the following. (Patient name, , MRN, Blood Pressure, dose of Thrombolytic and waste, weight completed by stretcher/scale not stated weight, have ED staff inform ED MD of thrombolytic decision) Thrombolytic bolus given Without Complication. IV Tenecteplase Total Dose ? 25.0 mg (Dose Rounding Per Facility Protocol) Routine post Thrombolytic monitoring including neuro checks and blood pressure control during/after treatment Monitor blood pressure Check blood pressure and neuro assessment every 15 min for 2 h, then every 30 min for 6 h, and finally every hour for 16 h. Manage Blood Pressure per post Thrombolytic protocol. ? Follow designated hospital protocol for admission and post thrombolytic care ? CT brain 24 hours post Thrombolytic ? NPO until swallowing screen performed and passed ? No antiplatelet agents or anticoagulants (including heparin for DVT prophylaxis) in first 24 hours ? No Olivia catheter, nasogastric tube, arterial catheter or central venous catheter for 24 hr, unless absolutely necessary ? Telemetry ? Bedside swallow evaluation ? HOB less than 30 degrees ? Euglycemia ? Avoid hyperthermia, PRN acetaminophen ? DVT prophylaxis ? Inpatient Neurology Consultation ? Stroke evaluation as per inpatient neurology recommendations Discussed with ED physician Advanced Imaging: Advanced imaging has been ordered. Results pending. Metrics: Last Known Well: 05/10/2025 12:45:00 Dispatch Time: 05/10/2025 13:11:12 Arrival Time: 05/10/2025 13:01:00 Initial Response Time: 05/10/2025 13:14:01Symptoms: unable to speak. Initial patient interaction: 05/10/2025 13:31:00 NIHSS Assessment Completed: 05/10/2025 13:35:59Patient is a candidate for Thrombolytic. Thrombolytic Medical Decision: 05/10/2025 13:36:01 Needle Time: 05/10/2025 13:44:49Weight Noted by Staff: [address] Head: I personally reviewed all the CT images that were available to me and it showed: no hemorrhage Radiologist was called back for review of advanced imaging on 05/10/2025 14:05:57 Primary Provider Notified of Diagnostic Impression and Management Plan on: 05/10/2025 13:42:31 Extended thrombolytic management related to: ?? Awaiting on history by family on potential contraindications Thrombolytic Contraindications: Last Known Well > 4.5 hours:?No CT Head showing hemorrhage:?No Ischemic stroke within 3 months:?No Severe head trauma within 3 months:?No Intracranial/intraspinal surgery within 3 months:?No History of intracranial hemorrhage:?No Symptoms and signs consistent with an SAH:?No GI malignancy or GI bleed within 21 days:?No Coagulopathy: Platelets <100 000 /mm3, INR >1.7, aPTT>40 s, or PT >15 s:?No Treatment dose of LMWH within the previous 24 hrs:?No Use of NOACs in past 48 hours:?No Glycoprotein IIb/IIIa receptor inhibitors use:?No Symptoms consistent with infective endocarditis:?No Suspected aortic arch dissection:?No Intra-axial intracranial neoplasm:?No Thrombolytic Decision and Management Plan: Management with thrombolytic treatment was explained to the Family as was risks and benefits and alternatives to the treatment. Patient agrees with the decision to proceed with thrombolytic treatment. . All questions were answered and the Family expressed understanding of the treatment plan. History of Present Illness:Patient is a 64 year old Female. Patient was brought by EMS for symptoms of unable to speak. 64 year old woman was with her family when sudden inability to speak led to the family activating EMS to bring her to the ED. I spoke to her daughter at the bedside who was able to provide history that her mother had no contraindications to TNK. She did not witness a seizure, no seizure history. In the past her mother had a facial droop that was assumed to be either stroke or TIA. Past Medical History: ?Hypertension ?Stroke ?There is no history of Diabetes Mellitus Medications: No Anticoagulant use? Antiplatelet use:?Yes?ASA Reviewed EMR for current medications Allergies:? Reviewed Social History: Drug Use: No Family History: There is no family history of premature cerebrovascular disease pertinent to this consultation ROS : 14 Points Review of Systems was performed and was negative except mentioned in HPI. Past Surgical History: There Is No Surgical History Contributory To Today?s Visit Examination: BP(155/72),?Pulse(76),?Blood Glucose(114) 1A: Level of Consciousness - Alert; keenly responsive?+ 0 1B: Ask Month and Age - Aphasic?+ 2 1C: Blink Eyes & Squeeze Hands - Performs Both Tasks?+ 0 2: Test Horizontal Extraocular Movements - Normal?+ 0 3: Test Visual Montano - No Visual Loss?+ 0 4: Test Facial Palsy (Use Grimace if Obtunded) - Normal symmetry?+ 0 5A: Test Left Arm Motor Drift - No Drift for 10 Seconds?+ 0 5B: Test Right Arm Motor Drift - No Drift for 10 Seconds?+ 0 6A: Test Left Leg Motor Drift - No Drift for 5 Seconds?+ 0 6B: Test Right Leg Motor Drift - No Drift for 5 Seconds?+ 0 7: Test Limb Ataxia (FNF/Heel-Robison) - No Ataxia?+ 0 8: Test Sensation - Normal; No sensory loss?+ 0 9: Test Language/Aphasia - Severe Aphasia: Fragmentary Expression, Inference Needed, Cannot Identify Materials?+ 2 10: Test Dysarthria - Normal?+ 0 11: Test Extinction/Inattention - No abnormality?+ 0 NIHSS Score:?4 Pre-Morbid Modified Ronn Scale: 0 Points = No symptoms at all Spoke with :?Dr Pineda This consult was conducted in real time using interactive audio and video technology. Patient was informed of the technology being used for this visit and agreed to proceed. Patient located in hospital and provider located at home/office setting. Patient is being evaluated for possible acute neurologic impairment and high probability of imminent or life-threatening deterioration. I spent total of 45 minutes providing care to this patient, including time for face to face visit via telemedicine, review of medical records, imaging studies and discussion of findings with providers, the patient and/or family. Dr Frederick Villatoro [facility] For Inpatient follow-up with [facility] physician please call [facility] at . As we are not an outpatient service for any post hospital disc harge needs please contact the hospital for assistance. If you have any questions for the [facility] physicians or need to reconsult for clinical or diagnostic changes please contact us via [facility] at . Signature :John Villatoro
[2025-05-10 14:10] LABS: Basophils # (Auto) 0.1 Thou/mm3 (0.0-0.2); Basophils % (Auto) 1 % (0-2.5); Eosinophils # (Auto) 0.1 Thou/mm3 (0.0-0.5); Eosinophils % (Auto) 1 % (0-10); Hematocrit 35.5 % (36.0-46.0); Hemoglobin 11.2 g/dL (12.0-16.0); Immature Granulocytes Auto 0.07 Thou/mm3 (0.00-0.00); Lymphocytes # (Auto) 2.4 Thou/mm3 (1.0-4.8); Lymphocytes % (Auto) 24 % (10-50); Mean Corpuscular HGB Conc 31.5 g/dl (31.0-37.0); Mean Corpuscular Hemoglobin 28.2 pg (25.0-35.0); Mean Corpuscular Volume 89 fL (80-100); Monocytes # (Auto) 1.0 Thou/mm3 (0.0-0.8); Monocytes % (Auto) 10 % (0-12); Neutrophils # (Auto) 6.4 Thou/mm3 (1.8-7.7); Neutrophils % (Auto) 64 % (37-80); Nucleated Red Blood Cell # 0.00 Thou/mm3 (0.00-0.00); Nucleated Red Blood Cell % 0 /100 WBC (0); Platelet Count 271 Thou/mm3 (140-440); RDW Standard Deviation 46.4 fL (36.4-46.3); Red Blood Count 3.97 Miln/mm3 (4.00-5.20); White Blood Count 10.0 Thou/mm3 (3.6-11.0)
[2025-05-10 14:17] LABS: INR 1.0 (0.9-1.3); Partial Thromboplastin Time 25.1 Seconds (22.0-36.0); Prothrombin Time 10.2 Seconds (9.0-12.2)
[2025-05-10 14:21] LABS: Ammonia 15 uMol/L (11-32)
[2025-05-10 14:23] LABS: Alanine Aminotransferase 10 U/L (10-49); Albumin, Serum 4.3 gm/dL (3.4-4.8); Albumin/Globulin Ratio 2.0 (1.2-2.2); Alkaline Phosphatase 86 U/L (46-116); Anion Gap 10 (7-16); Aspartate Amino Transferase 18 U/L (0-34); BUN/Creatinine Ratio 20 Ratio (12-20); Bilirubin,Total 0.5 mg/dL (0.3-1.2); Blood Urea Nitrogen 12 mg/dL (9-23); Calcium 8.7 mg/dL (8.3-10.6); Calcium (Corrected) 8.7 mg/dL (8.5-10.1); Carbon Dioxide 26.3 mMol/L (20.0-31.0); Chloride 103 mMol/L (98-107); Creatinine (Component) 0.6 mg/dL (0.6-1.3); Estimated Creatinine Clearance 104.8 mL/min (>60); Globulin 2.1 gm/dL (2.3-3.5); Glucose 106 mg/dL (74-106); Magnesium 1.7 mg/dL (1.6-2.6); Osmolality,Calculated 277 (275-295); Potassium 3.2 mMol/L (3.4-5.1); Sodium 139 mMol/L (136-145); Thyroid Stimulating Hormone 1.30 uIU/mL (0.55-4.78); Total Protein 6.4 gm/dL (5.7-8.2); Troponin I < 0.020 ng/mL (0.0-0.045); eGFR > 60 See Note
[2025-05-10 14:34] LABS: HCG Titer if Positive Negative
[2025-05-10 14:41] LABS: T4 (Thyroxine) 5.4 mcg/dL (4.5-10.9)
--- NOTE | 2025-05-10 15:37 | ECHO_ITS ---
Transthoracic Echo Report Ht (in): 62 Wt (lb): 231 Exam Location: Echo Lab Status: Emergency Account Development Representative: Elba Dukes Indications: Procedure Performed: BP: 159 / 62 HR: 66 Technical Quality: Technically difficult study MEASUREMENTS (Male / Female) Normal Values 2D ECHO LV Diastolic Diameter PLAX 4.7 cm 4.2 - 5.9 / 3.9 - 5.3 cm LV Systolic Diameter PLAX 3.0 cm IVS Diastolic Thickness 1.0 cm 0.6 - 1.0 / 0.6 - 0.9 cm LVPW Diastolic Thickness 1.2 cm 0.6 - 1.0 / 0.6 - 0.9 cm LV Relative Wall Thickness 0.5 LVOT Diameter 1.7 cm Aortic Root Diameter 2.6 cm LA Systolic Diameter LX 3.3 cm 3.0 - 4.0 / 2.7 - 3.8 cm LV Ejection Fraction MOD BP 64.9 % >= 55 % LV Cardiac Index MOD BP 1469.9 cm?/min?m? LV Ejection Fraction MOD 4C 65.9 % LV Cardiac Index MOD 4C 1544.9 cm?/min?m? LV Ejection Fraction 4C AL 67.5 % LV Cardiac Index 4C AL 1669.3 cm?/min?m? LV Ejection Fraction MOD 2C 65.9 % LV Cardiac Index MOD 2C 1418.9 cm?/min?m? LV Ejection Fraction 2C AL 67.2 % LV Cardiac Index 2C AL 1476.8 cm?/min?m? LA Volume Index 15.7 cm?/m? 16 - 28 cm?/m? M-MODE Aortic Root Diameter MM 2.2 cm LA Systolic Diameter MM 3.5 cm LA Ao Ratio MM 1.6 AV Cusp Separation MM 1.7 cm DOPPLER AV Peak Velocity 191.0 cm/s AV Peak Gradient 14.6 mmHg AV Mean Gradient 7.0 mmHg AV Velocity Time Integral 43.9 cm LVOT Peak Velocity 117.0 cm/s LVOT Peak Gradient 5.5 mmHg LVOT Velocity Time Integral 25.2 cm LVOT Cardiac Index 1715.8 cm?/min?m? AV Area Cont Eq vti 1.3 cm? AV Area Cont Eq pk 1.4 cm? MV Area PHT 4.4 cm? MR Peak Velocity 425.0 cm/s MR Peak Gradient 72.3 mmHg Mitral E Point Velocity 103.0 cm/s Mitral A Point Velocity 118.0 cm/s Mitral E to A Ratio 0.9 LV E' Lateral Velocity 7.4 cm/s Mitral E to LV E' Lateral Ratio 13.9 LV E' Septal Velocity 6.2 cm/s Mitral E to LV E' Septal Ratio 16.6 TR Peak Velocity 246.0 cm/s TR Peak Gradient 24.2 mmHg PV Peak Velocity 125.0 cm/s PV Peak Gradient 6.3 mmHg FINDINGS Left Ventricle Normal left ventricular size and systolic function with no obvious regional wall motion abnormalities. Mild LVH. The ejection fraction is visually estimated at 55-60 %. There is grade I diastolic dysfunction of the left ventricle (impaired relaxation pattern). Right Ventricle The right ventricle is normal in size and systolic function. Left Atrium The left atrium is normal by two-dimensional, color flow and Doppler imaging with no structural abnormalities, no thrombus formation present. Right Atrium The right atrium is normal by two-dimensional imaging, color flow and Doppler imaging with no structural abnormalities, no thrombus formation present. Atrial Septum The interatrial septum appears normal with no evidence of a shunt. Aorta The aorta is normal by two-dimensional, color flow and Doppler interrogation. Mitral Valve The mitral valve is normal by two-dimensional, color flow and Doppler interrogation. Trace mitral regurgitation. Aortic Valve The aortic valve is trileaflet and normal by two-dimensional, color flow and Doppler interrogation. There is no significant aortic valve regurgitation. Tricuspid Valve The tricuspid valve is normal by two-dimensional, color flow and Doppler interrogation. There is trace tricuspid valve regurgitation. Pulmonic Valve The pulmonic valve is not well visualized. There is no significant pulmonic valve regurgitation. Vessels The pulmonary artery appears normal. The inferior vena cava pulmonary and hepatic veins appear normal. Pericardium The pericardium is normal by two-dimensional imaging. There is no significant pericardial effusion. CONCLUSIONS Indication: stroke Positive bubble study Agitated saline contrast was performed, with evidence of PFO intra-cardiac shunt Normal left ventricular size and function. Approximate ejection fraction is 55-60%. Trace mitral and trace tricuspid regurgitation Kanchan Aviles (Electronically Signed) Final Date: 11 May 2025 17:36
--- NOTE | 2025-05-10 15:41 | ESHP_ITS ---
<Statement entered by Jose Mckay MD - 05/10/25 18:22> Patient seen and examined at bedside. I discussed and supervised with the tax services intern physician who took care of this patient. I personally saw and examined the patient. I agree with most of the assessment and plan. Patient with PMHx HTN, TIA presented with chief complaint sudden onset confusion and weakness. Per daughter at bedside, patient was temporarily aphasic. Noted by ED staff to repeat questions without answering them. Teleneuro consulted, recommended TNK, which was administered. Patient showed significant improvement in symptoms after TNK. Admitted to ICU to monitor for complications. Initial head CT unremarkable, will get repeat at 24 hours. Neurology consulted, appreciate recommendations. Plan of care discussed with attending Dr. Horta. Jose Mckay MD PGY-2 Documentation for date of: 05/10/25 HPI History of Present Illness Chief complaint: Weakness - Stroke History of present illness: Patient is a 64-year-old female with past medical history significant for hypertension, hyperlipidemia, reported prior TIA (facial droop, resolved), asthma, osteopenia, gerd presented to the ED with chief complaint of weakness and confusion. History was taken mainly from daughter as patient mentation is still not at baseline (but reported to be improved). Daughter stated that around noon today patient was weak and was not able to talk. Shortly after this, patient was noted to have regained her ability to talk, but what still confused based on her responses. Nurse noted that after TNK patient patient's mentation improved quite a bit is a lot closer to baseline, still confused on some things though. Stated this is never happened before, but had something similar happen a while ago. Daughter denied her mother having any headache, head trauma, syncope, seizures, fever, chills, chest pain, palpitations, dyspnea, nausea, vomiting. States that she occasionally needs to use her inhaler for asthma and that she frequently takes medication for gerd, endorses epigastric discomfort. Shortly after examining patient, was called by ED nurse who noted patient had some bleeding from one of her varicose vein wounds and that the bleeding had been stopped promptly and was no longer bleeding. Past Medical History: above Family History: Stroke in father and mother Surgical History: Varicose veins, knee replacement surgery, appendectomy Social History: Denies history of smoking, denies current alcohol use, denies recreational drug use. Lives with son. Current Medications: Need Med Rec (daughter stated patient takes medication for cholesterol, HTN, depression, and for her varicose veins Allergies: No known drug allergies ED Course: -Initial vitals were significant for blood pressure 167/80. Labs significant for hemoglobin of 11.2, potassium 3.2. Imaging included Chest x-ray showed moderate vascular congestion, CT head was negative for hemorrhage or midline shift, and neck CT showed no stenosis no cerebral large vessel occlusion, EKG showed sinus rhythm. In the ED tele neuro was consulted, patient was given TNK 25 mg x1. Patient was admitted to ICU for management of stroke s/p TNK. Review of Systems Review of systems otherwise negative except what is mentioned above. Exam Vital Signs Temp Pulse Resp BP Pulse Ox O2 Del Method 98.1 F 74 16 143/85 H 99 Room Air 05/10/25 15:15 05/10/25 15:30 05/10/25 15:30 05/10/25 15:30 05/10/25 15:30 05/10/25 15:30 Narrative Exam General: No acute distress; A&Ox3 Skin: Bilateral lower extremity scars on knees from previous surgery; bilateral lower extremity varicose veins (bandaged); warm, dry, no obvious rash. HENT: NCAT, EOMI/PERRL, not icteric. External ears normal. No rhinorrhea. Moist mucous membranes Cardiovascular: Regular rate and rhythm, no murmur, +S1/S2. Respiratory: Mild R sided wheezes, lungs clear otherwise GI: Soft, mild epigastric tenderness, non-distended. No guarding or rebound tenderness. : No suprapubic tenderness. No flank tenderness bilaterally. Extremities: (refer to skin above), pain patch on R lower leg; no edema, no cyanosis, no clubbing. Extremity pulses present Neuro: Grossly nonfocal. Moving all 4 extremities. Sensation equal, intact. Strength equal, intact. Psychiatric: Cooperative, appropriate affect. Results: Labs 05/12/25 04:24 05/12/25 04:24 Labs: Short CBC 05/10/25 Range/Units 13:56 WBC 10.0 (3.6-11.0) Thou/mm3 Hgb 11.2 L (12.0-16.0) g/dL Hct 35.5 L (36.0-46.0) % Plt Count 271 (140-440) Thou/mm3 BMP 05/10/25 13:56 Sodium 139 Potassium 3.2 L Chloride 103 Carbon Dioxide 26.3 BUN 12 Creatinine 0.6 Glucose 106 Calcium 8.7 Cardiac Enzymes 05/10/25 Range/Units 13:56 Troponin I < 0.020 (0.0-0.045) ng/mL Liver Function 05/10/25 Range/Units 13:56 Total Bilirubin 0.5 (0.3-1.2) mg/dL AST 18 (0-34) U/L ALT 10 (10-49) U/L Alkaline Phosphatase 86 (46-116) U/L Albumin 4.3 (3.4-4.8) gm/dL Quality Measures Quality Measures VTE prophylaxis Advance care planning discussed with:: patient and child Medications Home Medications and Allergies Home Medications ?Medication ?Instructions ?Recorded ?Confirmed ?Type sertraline 100 mg tablet (Zoloft) 100 mg PO QDAY 04/2705/11/25 History hydrochlorothiazide 25 mg tablet 25 mg PO Q12H 5 05/11/25 History tramadol 50 mg tablet 50 mg PO Q12H PRN pain 05/1105/11/25 History Allergies Allergy/AdvReac Type Severity Reaction Status Date / Time No Known Allergies Allergy Verified 05/06/25 10:54 Visit Medications Acetaminophen (Acetaminophen 325 Mg Tablet) 650 mg PO Q6H PRN PRN Reason: Fever >100.5 or pain 1-3 Stop: 06/09/25 15:25 Albuterol/Ipratropium (Albuterol/Ipratropium (Duoneb) Rt Lizeth 3 Ml Nebu) 3 ml INH Q6HRRT PRN PRN Reason: Dyspnea Stop: 06/09/25 18:59 Nicardipine/Sodium Chloride (Cardene Ivpb) 20 mg in 200 mls @ 50 mls/hr IV .Q4H PRN; Protocol PRN Reason: Per Nicardipine Stroke Protocol Stop: 06/09/25 13:36 Potassium Chloride (Kcl Ivpb) 10 meq in 100 mls @ 100 mls/hr IV Q1H RAZA Stop: 05/10/25 16:39 Lactated Ringer's (Lactated Ringers) 1,000 mls @ 75 mls/hr IV .[id number] [facility] Stop: 05/11/25 05:04 Labetalol HCl (Labetalol Inj 5 Mg/Ml Vial 20 Ml) 10 mg IVP PRNMRX1 PRN PRN Reason: SBP > 185 mmHg and/or DBP > 110 Labetalol HCl (Labetalol Inj 5 Mg/Ml Vial 20 Ml) 10 mg IVP PRNMRX1 PRN PRN Reason: SBP > 180 mmHg or DBP > 105 Ondansetron HCl (Ondansetron Inj 2 Mg/Ml Inj 2 Ml) 4 mg IVP Q6H PRN; Protocol PRN Reason: NAUSEA OR VOMITING Stop: 06/09/25 15:25 Pantoprazole Sodium (Pantoprazole Inj 40 Mg Vial) 40 mg IVP QDAY [facility] Stop: 06/10/25 08:59 Discontinued Medications Tenecteplase (Tenecteplase Inj 50 Mg Vial) 25 mg IV X1 ONE Stop: 05/10/25 13:38 Last Admin: 05/10/25 13:44 Dose: 25 mg Assessment & Plan Plan Patient is a 64-year-old female with past medical history significant for hypertension, hyperlipidemia, reported prior TIA, asthma, osteopenia, gerd presented to the ED with chief complaint of weakness and confusion. Patient was admitted to ICU for management of stroke s/p TNK. Neurology #Stroke s/p TNK Suspecting ischemic stroke. CTA head neck negative for signficant stenosis or large vessel arterial occlusion/thrombus. Patient with focal neuro deficits characterized by brief aphasia, confusion. Last seen normal at ~12:00 pm. Patient has hx of TIA in the past with symptoms of facial droop (resolved) Contraindications to TNK reviewed with family along with risks/benefits, decision to to give TNK. Patient orientation reported to have improved after being given TNK Patient was reported to have transient bleeding from varicose vein after TNK, has since stopped, stable. Dx: -Tele neuro consulted -glucose, inr, cbc unremarkable -EKG sinus rhythm -Head CT negative for acute hemorrhage, mass effect or midline shift -Head/Neck CTA negative for significant neck arterial stenoses or cerebreal large vessel arterial occlusions or thrombus. Rx: - TPA given --> Q1hr neuro checks x 24 until repeat NCHCT.? - BP goal <180/105 (Nicardipine preferred). - Echo w/ bubble study ordered - Lipid panel ordered - Speech, Physical Therapy Referred - Holding 24 hours Antiplatelet agent Cardiovascular #Hx of HTN Dx: -Admission BP 167/80 Rx: -Permissive HTN <180/105 s/p TNK Respiratory #Hx of Asthma Dx: -Mild R sided wheezes, Rx: -Duonebs PRN GI and F/E/N #Hx of GERD Dx: -Patient reports some epigastric discomfort, informed the team she has hx of gerd Rx: -Protonix 40 mg IV qday Renal #hypokalemia Dx: -Potassium of 3.2 on admission -EKG on admission showed sinus rhythm Rx: -Repleting with KCl Heme #Normocytic Anemia Dx: -Hgb 11.2 on admission -Patient was reported to have transient bleed from varicose vein -No longer bleeding now or any other signs or symptoms of bleeding Rx: -Will monitor for signs of bleeding, will trend hgb labs. Endo No active problems ID No active problems Disposition: ICU - stroke s/p TNK DVT prophylaxis: SCD's GI prophylaxis: Protonix 40 mg IV qday Diet: NPO (speech referred) Olivia: no Lines: Peripherals Drips: no Vent: no CODE STATUS: Full Code Patient plan of care was discussed with the attending physician, Dr. Horta & senior resident Dr. Camille RAMSAY PGY-1 Attending Provider Attestation/Addendum Patient not seen on date of service. I was contacted by above resident and agree with admission to the ICU post TNK for ischemic infarct. Complete protocol testing/ workup for risk factor modification. ASA tomorrow/ statin after swallow evaluatin.. Avoid lab draws/ IV stick. BP control. Neurology consult. I will formally see patient in AM during rounds with housestaff. I remain available for any needs overnight should they arise.
[2025-05-10] MEDS: RINGERS LACTATED 1000 ML 1,000 ML 100 ML IV (16:59)
[2025-05-10] MEDS: POTASSIUM CHL 10 mEq IVPB 10 MEQ/100 ML BAG 100 MEQ IV (16:59)
[2025-05-10] MEDS: POTASSIUM CHL 10 mEq IVPB 10 MEQ/100 ML BAG 60 MEQ IV (19:10)
[2025-05-10] MEDS: POTASSIUM CHL 10 mEq IVPB 10 MEQ/100 ML BAG 50 MEQ IV ×2 (21:46→23:23)
[2025-05-11] VITALS (28 sets, daily range): BP systolic 111–184; BP diastolic 57–100; PULSE 66–90; RESP 10–96; TEMP 36.6–37.2; O2SAT 93–98; BMI 42.5
--- NOTE | 2025-05-11 | XR_ITS ---
Examinations: MRI Brain without intravenous contrast. MRA brain without intravenous contrast. MRA carotids without intravenous contrast 3-D vascular reconstructions Date and time of exam: May 11, 2025, 1438 hours INDICATIONS: Sudden onset confusion and weakness aphasia, stroke alert today Technique: Multiple axial and sagittal images of the brain have been obtained MRA brain carotid images without contrast obtained, including 3-D postprocessing, vascular maximum intensity projection images Findings: Sellaturcica is not enlarged. The optic chiasm and infundibular stalk are not remarkable. Prepontine and interpeduncular cisterns are not enlarged. No localized enlargement of the medulla or garima. Fourth ventricle and cerebellar tonsils normal in position. Subacute hemorrhage is not seen. Fourth ventricle is midline. Mass in the cerebellopontine angle region is not evident. 7th and 8th nerve complexes exhibits symmetry. Globes are symmetrical with no retro-orbital mass. Increased white matter signal significant Diffusion-weighted images demonstrate small foci restricted diffusion left occipital lobe, diffusion image 13, left temporal lobe diffusion image 14 and 15 as well as left parietal lobe FLAIR images 16 and 17 as well as 18 Mass-effect upon the ventricular system is not identified. MRA carotid images degraded by patient motion. MRA brain images no gross large vessel occlusions Impression: Multiple embolic type acute infarcts including left occipital lobe, left temporal lobe, left parietal lobe
--- NOTE | 2025-05-11 00:22 | EKG_ITS ---
[facility] Test Date: 2025-05-11 Pat Name: RAJESH VENEGAS [facility] Gender[facility] Admin Secretary: KRISTIE : 1960 Requested By: Jose Raul Bourne Order Number: [id number] Reading MD: Jose Raul Bourne Measurements Intervals [place] Rate: 71 P: 19 VT: 163 QRS: 34 QRSD: 83 T: 30 QT: 401 QTc: 439 Interpretive Statements SINUS RHYTHM Compared to ECG 05/10/2025 13:51:38 T-wave abnormality no longer present /store/S0/[id number].pdf
[2025-05-11] MEDS: POTASSIUM CHLORIDE 10% 20 MEQ/15 ML UDC 40 MEQ GT (00:35)
[2025-05-11] MEDS: Magnesium Sulfate 4 GM Ivpb 4 GM/50 ML BAG IV (00:35)
[2025-05-11 00:47] LABS: Collection Type, Urine Catheter; Squamous Epithelial Cell,Urine 0 /hpf (0-5)
[2025-05-11] MEDS: POTASSIUM CHL 10 mEq IVPB 10 MEQ/100 ML BAG 60 MEQ IV ×2 (00:47→02:28)
[2025-05-11 01:11] LABS: Amphetamine/Methamp Scrn,U Negative (Negative); Barbiturate Screen,Urine Negative (Negative); Benzodiazepines Screen,Urine Negative (Negative); Benzoylecgonine Screen, Ur Negative (Negative); Fentanyl Screen,Urine Negative (Negative); Opiate Screen,Urine Negative (Negative); THC Screen,Urine Negative (Negative)
[2025-05-11 01:15] LABS: Bilirubin,Urine Negative (Negative); Blood,Urine Negative (Negative); Clarity,Urine Clear (Clear/Hazy); Color,Urine Colorless (Lt Yel-Yel); Culture Indicated,Urine Not Indicated; Glucose, Urine Trace (Negative); Ketones,Urine Negative (Negative); Leukocyte Esterase,Urine Negative (Negative); Nitrite,Urine Negative (Negative); PH,Urine 6.5 (5.0-7.0); Protein,Urine Negative (Neg - Trace); RBC,Urine 1 /hpf (0-3); Specific Gravity,Urine 1.011 (1.001-1.035); Urobilinogen,Urine Negative mg/dL (0.0-1.0); WBC,Urine 1 /hpf (0-5)
[2025-05-11 01:47] LABS: Phosphorous 3.6 mg/dL (2.4-5.1)
[2025-05-11 05:44] LABS: Basophils # (Auto) 0.0 Thou/mm3 (0.0-0.2); Basophils % (Auto) 0 % (0-2.5); Eosinophils # (Auto) 0.1 Thou/mm3 (0.0-0.5); Eosinophils % (Auto) 1 % (0-10); Hematocrit 34.4 % (36.0-46.0); Hemoglobin 11.0 g/dL (12.0-16.0); Immature Granulocytes Auto 0.04 Thou/mm3 (0.00-0.00); Lymphocytes # (Auto) 1.8 Thou/mm3 (1.0-4.8); Lymphocytes % (Auto) 21 % (10-50); Mean Corpuscular HGB Conc 32.0 g/dl (31.0-37.0); Mean Corpuscular Hemoglobin 28.7 pg (25.0-35.0); Mean Corpuscular Volume 90 fL (80-100); Monocytes # (Auto) 0.7 Thou/mm3 (0.0-0.8); Monocytes % (Auto) 8 % (0-12); Neutrophils # (Auto) 6.0 Thou/mm3 (1.8-7.7); Neutrophils % (Auto) 69 % (37-80); Nucleated Red Blood Cell # 0.00 Thou/mm3 (0.00-0.00); Nucleated Red Blood Cell % 0 /100 WBC (0); Platelet Count 269 Thou/mm3 (140-440); RDW Standard Deviation 46.8 fL (36.4-46.3); Red Blood Count 3.83 Miln/mm3 (4.00-5.20); White Blood Count 8.6 Thou/mm3 (3.6-11.0)
[2025-05-11 05:51] LABS: INR 0.9 (0.9-1.3); Partial Thromboplastin Time 27.3 Seconds (22.0-36.0); Prothrombin Time 10.1 Seconds (9.0-12.2)
[2025-05-11 06:16] LABS: Alanine Aminotransferase 10 U/L (10-49); Albumin, Serum 4.0 gm/dL (3.4-4.8); Albumin/Globulin Ratio 2.1 (1.2-2.2); Alkaline Phosphatase 84 U/L (46-116); Anion Gap 10 (7-16); Aspartate Amino Transferase 13 U/L (0-34); BUN/Creatinine Ratio 20 Ratio (12-20); Bilirubin,Total 0.4 mg/dL (0.3-1.2); Blood Urea Nitrogen 10 mg/dL (9-23); Calcium 8.6 mg/dL (8.3-10.6); Calcium (Corrected) 8.6 mg/dL (8.5-10.1); Carbon Dioxide 25.4 mMol/L (20.0-31.0); Cardiac Risk Estimate 2.6 RATIO (3.7-5.6); Chloride 107 mMol/L (98-107); Cholesterol 155 mg/dL (132-200); Creatinine (Component) 0.5 mg/dL (0.6-1.3); Estimated Creatinine Clearance 125.8 mL/min (>60); Globulin 1.9 gm/dL (2.3-3.5); Glucose 117 mg/dL (74-106); HDL Cholesterol 59 mg/dL (40-60); LDL Cholesterol,Calculated 68 mg/dL (0-130); Magnesium 2.6 mg/dL (1.6-2.6); Osmolality,Calculated 283 (275-295); Phosphorous 2.9 mg/dL (2.4-5.1); Potassium 4.6 mMol/L (3.4-5.1); Sodium 142 mMol/L (136-145); Total Protein 5.9 gm/dL (5.7-8.2); Triglycerides 140 mg/dL (30-150); eGFR > 60 See Note
[2025-05-11 06:34] LABS: Glucose Estimated Average 123 mg/dL (80-131); Hemoglobin A1C 5.9 % Hgb (4.8-6.0)
--- NOTE | 2025-05-11 08:09 | XR_ITS ---
Examination: CT brain head without contrast. 2-D sagittal coronal reconstructions Date and time of exam: May 11, 2025, 0827 hours, comparison May 10, 2025 INDICATIONS: Decline in neurologic status CTDI: vol (mGy): 49.1 DLP: (mGycm): 917 Technique: Multiple CT axial sections of the brain have been obtained, 5 mm slice thickness. Contrast has not been administered. 2-D sagittal, coronal reconstructions have been obtained Low dose protocols were performed. One or more of the following dose reduction techniques were used; automated exposure control, adjustment of the mA and/or KV according to patient size, use of iterative reconstruction technique. Findings: No significant ventricular enlargement. Intra-axial or extra-axial hemorrhage density is not seen. No mass effect or midline shift Basal cisterns are not remarkable. Fourth ventricle is midline. Cranial vault intact. Impression: No interval acute hemorrhage, mass effect or midline shift
--- NOTE | 2025-05-11 09:00 | ESCONSULT_ITS ---
Tele Neuro Consultation Consultation Date 05/11/25 Most Recent Vital Signs Last Vital Signs Temp 97.8 F 05/11/25 00:15 Pulse 66 05/11/25 07:00 Resp 15 05/11/25 07:00 BP 159/62 H 05/11/25 07:00 Pulse Ox 95 05/11/25 07:00 O2 Del Method Room Air 05/10/25 17:45 Laboratory-Coagulation Panel PT 10.1 Seconds (9.0-12.2) 05/11/25 04:23 INR 0.9 (0.9-1.3) 05/11/25 04:23 APTT 27.3 Seconds (22.0-36.0) 05/11/25 04:23 Consultation Narrative [facility] TeleNeurology Consult Services Patient Name:???RAJESH VENEGAS Date of :???1960 Identification Number:??? Date of Service:???05/11/2025 08:21:40 Diagnosis:?I63.512 - Cerebrovascular accident (CVA) due to occlusion of left middle cerebral artery (HCC) Impression: ?Left frontal ischemic stroke 05/10/25 s/p IV tenecteplase, with recurrent aphasia/dysarthria this morning. There is no evidence of hemorrhagic transfor mation on CT head, and no development of extremity symptoms, facial droop, or visual field loss. She is not a candidate for IV thrombolysis as she received tenecteplase yesterday. ? ?Recommendations: ?- BP <180/105 ?- Ensure euvolemia, euglycemia ?- Keep HOB as flat as tolerated ?- Recommend MRI brain ?- Hold anti-thrombotics until 24-hour imaging negative for hemorrhage Our recommendations are outlined below. Recommendations: ? Stroke/Telemetry Floor ? Neuro Checks (Q1) ? Bedside Swallow Eval ? DVT Prophylaxis ? IV Fluids, Normal Saline ? Head of Bed 30 Degrees ? Euglycemia and Avoid Hyperthermia (PRN Acetaminophen) Sign Out: ? Discussed with Primary Attending ? Discussed with Rapid Response Team Advanced Imaging: Advanced Imaging Deferred because: Advanced Imaging not obtained at this time. Reason: fluctuation of presenting symptoms, s/p unremarkable CTA head/neck yesterday Metrics: Last Known Well: 05/10/2025 12:45:00 Dispatch Time: 05/11/2025 08:21:40 Initial Response Time: 05/11/2025 08:23:04Symptoms: slurred speech. Initial patient interaction: 05/11/2025 08:30:48 NIHSS Assessment Completed: 05/11/2025 08:38:39Patient is not a candidate for Thrombolytic. Thrombolytic Medical Decision: 05/11/2025 08:38:40Patient was not deemed candidate for Thrombolytic because of following reasons: Significant head trauma or stroke in previous [address] Head: I personally reviewed all the CT images that were available to me and it showed: no acute hemorrhage. Evolving left frontal hypodensity suspicious for infarct Primary Provider Notified of Diagnostic Impression and Management Plan on: 05/11/2025 08:46:16 Spoke With: Dr. Horta Able to Reach 05/11/2025 08:46:16 History of Present Illness:Patient is a 64 year old Female. Inpatient stroke alert was called for symptoms of slurred speech. Patient is a 64-year-old woman admitted yesterday after acute onset of aphasia, for which she was treated with IV tenecteplase yesterday at 13:44. Initial NIHSS score was 4. She initially had improvement of symptoms. CTA head and neck did not show thrombus, hemodynamically significant stenosis, or occlusion. This morning she was noted to have an increase in dysarthria, along with mild aphasia (not as severe as on initial presentation). As she had initially improved, stroke alert was reactivated. Past Medical History: ?Hypertension ?Hyperlipidemia Other PMH:? TIA, asthma Medications: No Anticoagulant use? Antiplatelet use:?Yes?aspirin (on hold) Reviewed EMR for current medications Other Medications Pertinent To Assessment Include: atorvastatin, amlodipine, sertraline, Advair Allergies:? Reviewed Social History: Smoking: No Alcohol Use: No Drug Use: No Family History: There is no family history of premature cerebrovascular disease pertinent to this consultation ROS : 14 Points Review of Systems was performed and was negative except mentioned in HPI. Past Surgical History: There Is No Surgical History Contributory To Today?s Visit Examination: BP(157/75),?Pulse(80), 1A: Level of Consciousness - Alert; keenly responsive?+ 0 1B: Ask Month and Age - Both Questions Right?+ 0 1C: Blink Eyes & Squeeze Hands - Performs Both Tasks?+ 0 2: Test Horizontal Extraocular Movements - Normal?+ 0 3: Test Visual Montano - No Visual Loss?+ 0 4: Test Facial Palsy (Use Grimace if Obtunded) - Normal symmetry?+ 0 5A: Test Left Arm Motor Drift - No Drift for 10 Seconds?+ 0 5B: Test Right Arm Motor Drift - No Drift for 10 Seconds?+ 0 6A: Test Left Leg Motor Drift - No Drift for 5 Seconds?+ 0 6B: Test Right Leg Motor Drift - No Drift for 5 Seconds?+ 0 7: Test Limb Ataxia (FNF/Heel-Robison) - No Ataxia?+ 0 8: Test Sensation - Normal; No sensory loss?+ 0 9: Test Language/Aphasia - Mild-Moderate Aphasia: Some Obvious Changes, Without Significant Limitation?+ 1 10: Test Dysarthria - Severe Dysarthria: Unintelligble Slurring or Out of Proportion to Aphasia?+ 2 11: Test Extinction/Inattention - No abnormality?+ 0 NIHSS Score:?3 I do not see lip or tongue swelling to suggest angioedema. No tongue deviation. Pre-Morbid Modified Ronn Scale: 0 Points = No symptoms at all Spoke with :?Dr. Horta This consult was conducted in real time using interactive audio and video technology. Patient was informed of the technology being used for this visit and agreed to proceed. Patient located in hospital and provider located at home/office setting. Patient is being evaluated for possible acute neurologic impairment and high probability of imminent or life-threatening deterioration. I spent total of 38 minutes providing care to this patient, including time for face to face visit via telemedicine, review of medical records, imaging studies and discussion of findings with providers, the patient and/or family. Dr Donya Haskins [facility] For Inpatient follow-up with [facility] physician please call [facility] at . As we are not an outpatient service for any post hospital discharge needs please contact the hospital for assistance. If you have any questions for the [facility] physicians or need to reconsult for clinical or diagnostic changes please contact us via [facility] at . Non-radiologist review of imaging performed to assist with emergent clinical decision-making. Remote physician workstations do not possess the same resolution, calibration, or diagnostic capabilities as hospital-based radiology reading stations, and formal radiologist read is necessary. Signature :Robert Haskins
--- NOTE | 2025-05-11 09:10 | PC.NURSE ---
Slp: Late entry for 819. Received call from MD stating pt's speech has become significantly more slurred. Denies other neuro changes, denies headache, pain, nausea. LKWT: unspecified. change occurred during the night. Content of speech is intact, but mechanics have worsened. Otherwise, BE FAST is negative. Initiated TeleNeuro stroke alert consult, pt taken for stat head CT, which - per neuro read - was negative for blood but did show an evolving frontal infarct (per Neurologist). Glucose 88. Neuro declined CT angio. Discussed findings with ICU physician team. Neuro to call [employer] ( Dr Horta). Pt settled, VSS stable per RN.
[2025-05-11 09:59] LABS: INR 1.0 (0.9-1.3); Partial Thromboplastin Time 27.1 Seconds (22.0-36.0); Prothrombin Time 10.3 Seconds (9.0-12.2)
[2025-05-11] MEDS: LABETALOL INJ 5 MG/ML VIAL 20 ML 10 MG IVP (10:12)
--- NOTE | 2025-05-11 10:45 | ESPR_ITS ---
<Statement entered by Jose Mckay MD - 05/11/25 16:43> Patient seen and examined at bedside. I discussed and supervised with the project intern physician who took care of this patient. I personally saw and examined the patient. I agree with most of the assessment and plan. No overnight events. However this morning, patient complained of worsening symptoms, noted to have more slurred speech compared to yesterday. Stat head CT was taken, showed no hemorrhagic conversion. Speech therapy eval cleared patient for full diet, patient has no dysarthria/dysphagia. MRI showed multiple embolic infarcts in left parietal, temporal, occipital lobes. TTE pending read. Aspirin and statin therapy scheduled to begin this afternoon. Patient downgraded to telemetry as 24 hours passed since TNK administered without incident. Plan of care discussed with attending Dr. Horta. Jose Mckay MD PGY-2 Documentation for date of: 05/11/25 Subjective Subjective Interval history: Patient is a 64-year-old female with past medical history significant for hypertension, hyperlipidemia, reported prior TIA (facial droop, resolved), asthma, osteopenia, gerd presented to the ED with chief complaint of weakness and confusion. History was taken mainly from daughter as patient mentation is still not at baseline (but reported to be improved). Daughter stated that around noon today patient was weak and was not able to talk. Shortly after this, patient was noted to have regained her ability to talk, but what still confused based on her responses. Nurse noted that after TNK patient patient's mentation improved quite a bit is a lot closer to baseline, still confused on some things though. Stated this is never happened before, but had something similar happen a while ago. Daughter denied her mother having any headache, head trauma, syncope, seizures, fever, chills, chest pain, palpitations, dyspnea, nausea, vomiting. States that she occasionally needs to use her inhaler for asthma and that she frequently takes medication for gerd, endorses epigastric discomfort. Shortly after examining patient, was called by ED nurse who noted patient had some bleeding from one of her varicose vein wounds and that the bleeding had been stopped promptly and was no longer bleeding. ED Course: -Initial vitals were significant for blood pressure 167/80. Labs significant for hemoglobin of 11.2, potassium 3.2. Imaging included Chest x-ray showed moderate vascular congestion, CT head was negative for hemorrhage or midline shift, and neck CT showed no stenosis no cerebral large vessel occlusion, EKG showed sinus rhythm. In the ED tele neuro was consulted, patient was given TNK 25 mg x1. Patient was admitted to ICU for management of stroke s/p TNK. Interval History: 05/11/2025: Yesterday patient had some bleeding from her varicose veins, that recently had surgery on April 29, which was able to be controlled, did not occur overnight. This morning, patient was noted to have some slurred speech that was difficult to understand some of her words. Patient was visibly saddened at this fact and said that nothing she is aware of has changed. Patient denied having any headache, chest pain, shortness of breath, nausea, vomiting, or any other acute changes overnight and this morning. Patient had a repeat Head CT done with tele-neuro consulted again this morning which had some mild swelling around the infarcted area. Planning to get MRI done today. Echo was done this morning. Patient's daughter was at bedside and was explained what has happened for her mother since seeing her yesterday, all of her questions were thoroughly answered. Speech stated she passed the formal swallow evaluation, will follow up specific diet recommendations. Patient is scheduled to get initial loading aspirin along with statin later today, with scheduled aspirin and statin starting tomorrow. Patient's BP was elevated to 184/100 and was promptly given labetalol 10 mg IV x1. Exam Vital Signs Temp Pulse Resp BP Pulse Ox O2 Del Method 98.6 F 90 18 184/100 H 96 Room Air 05/11/25 08:00 05/11/25 10:12 05/11/25 09:01 05/11/25 10:12 05/11/25 09:01 05/11/25 08:00 Narrative Exam General: No acute distress; A&Ox3 Skin: Bilateral lower extremity scars on knees from previous surgery; bilateral lower extremity varicose veins (L side bandaged); warm, dry, no obvious rash. HENT: NCAT, EOMI/PERRL, not icteric. External ears normal. No rhinorrhea. Moist mucous membranes Cardiovascular: Regular rate and rhythm, no murmur, +S1/S2. Respiratory: Mild R sided wheezes, lungs clear otherwise GI: Soft, mild epigastric tenderness, non-distended. No guarding or rebound tenderness. : No suprapubic tenderness. No flank tenderness bilaterally. Extremities: (refer to skin above); 1+ pitting edema, no cyanosis, no clubbing. Extremity pulses present Neuro: Grossly nonfocal. Moving all 4 extremities. Sensation equal, intact. Strength equal, intact. Psychiatric: Cooperative, appropriate affect. Objective Labs 05/14/25 05:52 05/14/25 05:52 Labs: Laboratory Results - last 24 hr 05/10/25 05/10/25 05/10/25 13:56 21:50 21:53 WBC 10.0 RBC 3.97 L Hgb 11.2 L Hct 35.5 L MCV 89 MCH 28.2 MCHC 31.5 RDW Std Deviation 46.4 H Plt Count 271 Neut % (Auto) 64 Lymph % (Auto) 24 [place] % (Auto) 10 Eos % (Auto) 1 Baso % (Auto) 1 Neut # (Auto) 6.4 Lymph # (Auto) 2.4 [place] # (Auto) 1.0 H Eos # (Auto) 0.1 Baso # (Auto) 0.1 Immature Gran # (Auto) 0.07 H Absolute Nucleated RBC 0.00 Immature Gran % 1 H Nucleated RBC % 0 PT 10.2 INR 1.0 APTT 25.1 Sodium 139 Potassium 3.2 L Chloride 103 Carbon Dioxide 26.3 Anion Gap 10 BUN 12 Creatinine 0.6 Estim Creat Clear Calc 104.8 eGFR > 60 BUN/Creatinine Ratio [address] Glu mg/dL Hemoglobin A1c Calculated Osmolality 277 Calcium 8.7 Corrected Calcium 8.7 Phosphorus 3.6 Magnesium 1.7 Total Bilirubin 0.5 AST 18 ALT 10 Alkaline Phosphatase 86 Ammonia 15 Troponin I < 0.020 Total Protein 6.4 Albumin 4.3 Globulin 2.1 L Albumin/Globulin Ratio 2.0 Triglycerides Cholesterol LDL Cholesterol, Calc HDL Cholesterol Cholesterol/HDL Ratio TSH 1.30 Thyroxine (T4) 5.4 Ur Collection Type Catheter Urine Color Colorless A Urine Clarity Clear Urine pH 6.5 Ur Specific [place] 1.011 Urine Protein Negative Urine Glucose (UA) Trace Urine Ketones Negative Urine Blood Negative Urine Nitrite Negative Urine Bilirubin Negative Urine Urobilinogen (Auto) Negative Ur Leukocyte Esterase Negative Urine RBC 1 Urine WBC 1 Ur Squamous Epith Cells 0 Urine Bacteria None Ur Culture Indicated? Not Indicated Urine Opiates Screen Negative Urine Fentanyl Screen Negative Ur Barbiturates Screen Negative U Amphetamin/Meth Scrn Negative U Benzodiazepines Scrn Negative U Cocaine Metab Screen Negative U Marijuana (THC) Screen Negative HCG (Qual) Negative 05/11/25 05/11/25 04:23 09:29 WBC 8.6 RBC 3.83 L Hgb 11.0 L Hct 34.4 L MCV 90 MCH 28.7 MCHC 32.0 RDW Std Deviation 46.8 H Plt Count 269 Neut % (Auto) 69 Lymph % (Auto) 21 [place] % (Auto) 8 Eos % (Auto) 1 Baso % (Auto) 0 Neut # (Auto) 6.0 Lymph # (Auto) 1.8 [place] # (Auto) 0.7 Eos # (Auto) 0.1 Baso # (Auto) 0.0 Immature Gran # (Auto) 0.04 H Absolute Nucleated RBC 0.00 Immature Gran % 1 H Nucleated RBC % 0 PT 10.1 10.3 INR 0.9 1.0 APTT 27.3 27.1 Sodium 142 Potassium 4.6 D Chloride 107 Carbon Dioxide 25.4 Anion Gap 10 BUN 10 Creatinine 0.5 L Estim Creat Clear Calc 125.8 eGFR > 60 BUN/Creatinine Ratio [address] Glu mg/dL 123 Hemoglobin A1c 5.9 Calculated Osmolality 283 Calcium 8.6 Corrected Calcium 8.6 Phosphorus 2.9 Magnesium 2.6 Total Bilirubin 0.4 AST 13 ALT 10 Alkaline Phosphatase 84 Ammonia Troponin I Total Protein 5.9 Albumin 4.0 Globulin 1.9 L Albumin/Globulin Ratio 2.1 Triglycerides 140 Cholesterol 155 LDL Cholesterol, Calc 68 HDL Cholesterol 59 Cholesterol/HDL Ratio 2.6 L TSH Thyroxine (T4) Ur Collection Type Urine Color Urine Clarity Urine pH Ur Specific [place] Urine Protein Urine Glucose (UA) Urine Ketones Urine Blood Urine Nitrite Urine Bilirubin Urine Urobilinogen (Auto) Ur Leukocyte Esterase Urine RBC Urine WBC Ur Squamous Epith Cells Urine Bacteria Ur Culture Indicated? Urine Opiates Screen Urine Fentanyl Screen Ur Barbiturates Screen U Amphetamin/Meth Scrn U Benzodiazepines Scrn U Cocaine Metab Screen U Marijuana (THC) Screen HCG (Qual) Quality Measures Quality Measures VTE prophylaxis Advance care planning discussed with:: patient and child Assessment & Plan Assessment Current Active Medications: Generic Name Dose Route Start Last Admin Trade Name Freq PRN Reason Stop Dose Admin Acetaminophen 650 mg 05/10/25 15:26 Acetaminophen 325 Mg Tablet PO 06/09/25 15:25 Q6H PRN Fever >100.5 or pain 1-3 Albuterol/Ipratropium 3 ml 05/10/25 15:31 Albuterol/Ipratropium (Duoneb) Rt Lizeth 3 Ml Nebu INH 06/09/25 18:59 Q6HRRT PRN Dyspnea Aspirin 81 mg 05/12/25 09:00 Aspirin Ec 81 Mg Tabec PO 06/11/25 08:59 QDAY RAZA Aspirin 325 mg 05/11/25 16:00 Aspirin 325 Mg Tablet PO 05/11/25 16:01 X1 ONE Atorvastatin Calcium 80 mg 05/12/25 21:00 Atorvastatin Calcium 20 Mg Tablet PO 06/11/25 20:59 HS RAZA Atorvastatin Calcium 80 mg 05/11/25 16:00 Atorvastatin Calcium 20 Mg Tablet PO 05/11/25 16:01 X1 ONE Nicardipine/Sodium Chloride 20 mg in 200 mls @ 50 mls/hr 05/10/25 13:37 Cardene Ivpb IV 06/09/25 13:36 .Q4H PRN Per Nicardipine Stroke Protocol Protocol 5 MG/HR Labetalol HCl 10 mg 05/10/25 16:26 05/11/25 10:12 Labetalol Inj 5 Mg/Ml Vial 20 Ml IVP 10 mg [id number] PRN Administration SBP > 180 mmHg or DBP > 105 Ondansetron HCl 4 mg 05/10/25 15:26 Ondansetron Inj 2 Mg/Ml Inj 2 Ml IVP 06/09/25 15:25 Q6H PRN NAUSEA OR VOMITING Protocol Pantoprazole Sodium 40 mg 05/11/25 09:00 05/11/25 09:06 Pantoprazole Inj 40 Mg Vial IVP 06/10/25 08:59 40 mg QDAY RAZA Administration Plan Patient is a 64-year-old female with past medical history significant for hypertension, hyperlipidemia, reported prior TIA, asthma, osteopenia, gerd presented to the ED with chief complaint of weakness and confusion. Patient was admitted to ICU for management of stroke s/p TNK. Neurology #Stroke s/p TNK Suspecting ischemic stroke. CTA head neck negative for signficant stenosis or large vessel arterial occlusion/thrombus. Patient with focal neuro deficits characterized by brief aphasia, confusion. Last seen normal at ~12:00 pm. Patient has hx of TIA in the past with symptoms of facial droop (resolved) Contraindications to TNK reviewed with family along with risks/benefits, decision to to give TNK. Patient orientation reported to have improved after being given TNK Patient was reported to have transient bleeding from varicose vein after TNK, has since stopped, stable. Dx: -Tele neuro consulted -05/10: Tele neuro consulted; glucose, inr, cbc unremarkable; EKG sinus rhythm; Head CT & Head/Neck CTA negative; TNK given -05/11: Repeat CT done for change of aphasia in morning, significant only for mild swelling; Lipids & A1c unremarkable; Rx: - BP goal <180/105 (Nicardipine preferred). - Brain MRI w/ MRA Multiple embolic type acute infarcts including left occipital lobe, left temporal lobe, left parietal lobe - Echo w/ bubble study ordered - Speech, Physical Therapy Referred - Restarting antiplatelet/statin today (24 hours s/p TNK) Cardiovascular #Hx of HTN Dx: -Admission BP 167/80 Rx: -Permissive HTN <180/105 s/p TNK -Labetalol 10 mg IV PRN for elevated BP Respiratory #Hx of Asthma Dx: -Mild R sided wheezes, Rx: -Duonebs PRN GI and F/E/N #Hx of GERD Dx: -Patient reports some epigastric discomfort, informed the team she has hx of gerd Rx: -Protonix 40 mg IV qday Renal #hypokalemia, resolved Dx: -Potassium of 3.2 on admission improved to 4.6 after multiple KCl's IV, KCl po x1 -EKG on admission showed sinus rhythm, repeat EKG sinus as well. Rx: -will continue to trend potassium Heme #Normocytic Anemia Dx: -Hgb 11.2 on admission, stable -Patient was reported to have transient bleed from varicose vein -No longer bleeding now or any other signs or symptoms of bleeding Rx: -Will monitor for signs of bleeding, will trend hgb labs. Endo No active problems ID No active problems Disposition: ICU - stroke s/p TNK 05/10 DVT prophylaxis: SCD's GI prophylaxis: Protonix 40 mg IV qday Diet: Cardiac Olivia: pure wick Lines: Peripherals Drips: no Vent: no CODE STATUS: Full Code Patient plan of care was discussed with the attending physician, Dr. Horta & senior resident Dr. Camille RAMSAY PGY-1 Attending Provider Attestation/Addendum Patient seen and examined with the above resident, Andrew Cat MD. I agree with the findings, assessment, and plan of care as document except for any differences below. Patient continues to do well this morning though she had worsening slurred speech. Stat CT was done to exclude presence of hemorrhagic conversion after receiving TNK yesterday. Imaging was negative fortunately and the patient proceeded with speech therapy and was cleared for full diet though she continues to have significant aphasia. MRI of further was able to identify embolic infarcts and transthoracic echo is pending at this point. Patient remains on appropriate aspirin and statin therapy and may need further imaging to exclude presence of PFO which we will defer to cardiology. Patient is otherwise stable for transfer to medicine [facility] for ongoing management prior to her discharge. Total critical care time: I personally spent 30 minutes for review of physiologic parameters, directing plan of care throughout the day, coordination of care with other specialty, and counseling patient and her daughter at bedside. This is exclusive of time spent teaching of staff performing separate billable procedures. Patient remained at significant risk for further morbidity and mortality warranting close primary care only available in the ICU. Critical care services required for embolic CVA, hypertension, and hyperlipidemia.
--- NOTE | 2025-05-11 12:55 | PC.SS ---
TREE TRIMMER HELPER conducted bedside contact with the patient conduct initial assessment and to discuss discharge planning.? Patient admitted for stroke.? Patient exhibiting difficulties with speech.? At bedside with patient was daughter, Елена Fields .? TREE TRIMMER HELPER utilized watch inspector to assist with discussion.? Patient is Persian speaking.? Patient resides at home with family.? Patient does not utilize any form of DME to assist with ambulation.? Patient does not utilize home oxygen.? Patient describes the ability to complete ADL?s independently.? Patient identified daughter, Елена Fields; as medical surrogate decision maker.? Patient?s PCP is Tosin Guardado.? Patient does not participate with dialysis.? Patient does not possess any specialty providers.? Plan is for the patient to return home at the time of discharge.? If home health recommended no preferred agency identified.? Family will provide transportation on behalf of the patient.? No further discharge needs identified by the patient.? No further intervention required at this time, web content & social media manager will be available to address any further concerns.? Next of Kin: Елена Fields D/C Plan: Home
--- NOTE | 2025-05-11 15:00 | PC.PT ---
PT eval only. Patient is I with transfers and ambulation without AD.
--- NOTE | 2025-05-11 15:47 | PD.RESPRO ---
Documentation for date of: 05/11/25 Subjective Subjective Interval history: Patient examined at bedside in ICU. She is s/p TNK after presenting to ED yesterday afternoon with slurred speech, weakness, confusion. Daughter was at bedside who provided history. Symptoms that were present on initial evaluation have since resolved. However status post TNK, noticeable dysarthria on physical exam. Daughter stated that this was new, started last night. Patient is able to understand and answer yes or no questions. She Displays full orientation and alertness. Able to follow commands. Stroke alert called this morning due to dysarthria. No other new focal deficits observed. CT head at 8:30 Am was negative for interval bleeding. Post TNK MRI is pending. Patient previously had a TIA about 10 years ago. At that time she presented with a facial droop. Since then has been compliant with aspirin and atorvastatin 20 mg daily. Also takes amlodipine 10 mg daily for hypertension. She denies any headache, blurry vision, dysphagia, weakness. Plan to start aspirin and plavix daily for 21 days. Continue plavix and atorvastatin after 21 days. Exam Vital Signs Temp Pulse Resp BP Pulse Ox O2 Del Method 98.9 F 77 21 H 141/66 H 95 Room Air 05/11/25 12:00 05/11/25 15:00 05/11/25 14:02 05/11/25 15:00 05/11/25 15:00 05/11/25 12:00 Narrative Exam General: elderly female, obese, No acute distress, cooperative HEENT: NCAT, No JVD noted. Mucosa moist. Pupils are equal and reactive to light bilaterally Cardiovascular: Normal S1 and S2. Regular rate and rhythm. Respiratory: Lungs are clear to auscultation bilaterally. No wheezing or crackles heard. Abdomen: Soft, nontender, not distended, normal bowel sounds. Skin: Warm to touch, dry, no rashes noted Musculoskeletal: No gross injuries. Able to move all 4 extremities. No pitting edema Neuro: Alert and oriented x3. Cranial nerves: II through XII grossly intact. Speech and language: noted to have dsyarthria, no dysphagia. Motor system: Tone and bulk: Normal: Strength: 5 out of 5 in all 4 extremities; No pronator drift noted. Plantar reflex: Downgoing bilaterally. Sensory system: Intact to all modalities of sensation bilaterally. Coordination: Intact to [id number] test. No ataxia, no dysmetria, or dysdiadochokinesia noted. No intention tremors noted. Gait: Not tested. No signs of meningeal irritation noted. Psych: Normal affect and mood Objective Labs 05/14/25 05:52 05/14/25 05:52 Labs: Laboratory Results - last 24 hr 05/10/25 05/10/25 05/10/25 13:56 21:50 21:53 WBC RBC Hgb Hct MCV MCH MCHC RDW Std Deviation Plt Count Neut % (Auto) Lymph % (Auto) [place] % (Auto) Eos % (Auto) Baso % (Auto) Neut # (Auto) Lymph # (Auto) [place] # (Auto) Eos # (Auto) Baso # (Auto) Immature Gran # (Auto) Absolute Nucleated RBC Immature Gran % Nucleated RBC % PT INR APTT Sodium Potassium Chloride Carbon Dioxide Anion Gap BUN Creatinine Estim Creat Clear Calc eGFR BUN/Creatinine Ratio Glucose Estimated Ave Glu mg/dL Hemoglobin A1c Calculated Osmolality Calcium Corrected Calcium Phosphorus 3.6 Magnesium Total Bilirubin AST ALT Alkaline Phosphatase Total Protein Albumin Globulin Albumin/Globulin Ratio Triglycerides Cholesterol LDL Cholesterol, Calc HDL Cholesterol Cholesterol/HDL Ratio Ur Collection Type Catheter Urine Color Colorless A Urine Clarity Clear Urine pH 6.5 Ur Specific [place] 1.011 Urine Protein Negative Urine Glucose (UA) Trace Urine Ketones Negative Urine Blood Negative Urine Nitrite Negative Urine Bilirubin Negative Urine Urobilinogen (Auto) Negative Ur Leukocyte Esterase Negative Urine RBC 1 Urine WBC 1 Ur Squamous Epith Cells 0 Urine Bacteria None Ur Culture Indicated? Not Indicated Urine Opiates Screen Negative Urine Fentanyl Screen Negative Ur Barbiturates Screen Negative U Amphetamin/Meth Scrn Negative U Benzodiazepines Scrn Negative U Cocaine Metab Screen Negative U Marijuana (THC) Screen Negative 05/11/25 05/11/25 04:23 09:29 WBC 8.6 RBC 3.83 L Hgb 11.0 L Hct 34.4 L MCV 90 MCH 28.7 MCHC 32.0 RDW Std Deviation 46.8 H Plt Count 269 Neut % (Auto) 69 Lymph % (Auto) 21 [place] % (Auto) 8 Eos % (Auto) 1 Baso % (Auto) 0 Neut # (Auto) 6.0 Lymph # (Auto) 1.8 [place] # (Auto) 0.7 Eos # (Auto) 0.1 Baso # (Auto) 0.0 Immature Gran # (Auto) 0.04 H Absolute Nucleated RBC 0.00 Immature Gran % 1 H Nucleated RBC % 0 PT 10.1 10.3 INR 0.9 1.0 APTT 27.3 27.1 Sodium 142 Potassium 4.6 D Chloride 107 Carbon Dioxide 25.4 Anion Gap 10 BUN 10 Creatinine 0.5 L Estim Creat Clear Calc 125.8 eGFR > 60 BUN/Creatinine Ratio [address] Glu mg/dL 123 Hemoglobin A1c 5.9 Calculated Osmolality 283 Calcium 8.6 Corrected Calcium 8.6 Phosphorus 2.9 Magnesium 2.6 Total Bilirubin 0.4 AST 13 ALT 10 Alkaline Phosphatase 84 Total Protein 5.9 Albumin 4.0 Globulin 1.9 L Albumin/Globulin Ratio 2.1 Triglycerides 140 Cholesterol 155 LDL Cholesterol, Calc 68 HDL Cholesterol 59 Cholesterol/HDL Ratio 2.6 L Ur Collection Type Urine Color Urine Clarity Urine pH Ur Specific [place] Urine Protein Urine Glucose (UA) Urine Ketones Urine Blood Urine Nitrite Urine Bilirubin Urine Urobilinogen (Auto) Ur Leukocyte Esterase Urine RBC Urine WBC Ur Squamous Epith Cells Urine Bacteria Ur Culture Indicated? Urine Opiates Screen Urine Fentanyl Screen Ur Barbiturates Screen U Amphetamin/Meth Scrn U Benzodiazepines Scrn U Cocaine Metab Screen U Marijuana (THC) Screen Quality Measures Quality Measures VTE prophylaxis Advance care planning discussed with:: patient and child Assessment & Plan Assessment Current Active Medications: Generic Name Dose Route Start Last Admin Trade Name Freq PRN Reason Stop Dose Admin Acetaminophen 650 mg 05/10/25 15:26 Acetaminophen 325 Mg Tablet PO 06/09/25 15:25 Q6H PRN Fever >100.5 or pain 1-3 Albuterol/Ipratropium 3 ml 05/10/25 15:31 Albuterol/Ipratropium (Duoneb) Rt Lizeth 3 Ml Nebu INH 06/09/25 18:59 Q6HRRT PRN Dyspnea Aspirin 81 mg 05/12/25 09:00 Aspirin Ec 81 Mg Tabec PO 06/11/25 08:59 QDAY RAZA Aspirin 325 mg 05/11/25 16:00 Aspirin 325 Mg Tablet PO 05/11/25 16:01 X1 ONE Atorvastatin Calcium 80 mg 05/12/25 21:00 Atorvastatin Calcium 20 Mg Tablet PO 06/11/25 20:59 HS RAZA Atorvastatin Calcium 80 mg 05/11/25 16:00 Atorvastatin Calcium 20 Mg Tablet PO 05/11/25 16:01 X1 ONE Nicardipine/Sodium Chloride 20 mg in 200 mls @ 50 mls/hr 05/10/25 13:37 Cardene Ivpb IV 06/09/25 13:36 .Q4H PRN Per Nicardipine Stroke Protocol Protocol 5 MG/HR Labetalol HCl 10 mg 05/10/25 16:26 05/11/25 10:12 Labetalol Inj 5 Mg/Ml Vial 20 Ml IVP 10 mg [id number] PRN Administration SBP > 180 mmHg or DBP > 105 Ondansetron HCl 4 mg 05/10/25 15:26 Ondansetron Inj 2 Mg/Ml Inj 2 Ml IVP 06/09/25 15:25 Q6H PRN NAUSEA OR VOMITING Protocol Pantoprazole Sodium 40 mg 05/11/25 09:00 05/11/25 09:06 Pantoprazole Inj 40 Mg Vial IVP 06/10/25 08:59 40 mg QDAY RAZA Administration Plan Patient is a 64-year-old female with past medical history significant for hypertension, hyperlipidemia, reported prior TIA (facial droop, resolved), asthma, osteopenia, gerd presented to the ED with chief complaint of weakness and confusion. She is in ICU s/p TNK. Neurology consutled for management. #CVA s/p TNK Initially presented to ED with confusion, weakness, slurred speech. NIHSS score was 4. She received 25 mg of TNK while in the ED. Appeared to have significant improvement of symptoms after administration. Currently in ICU for hourly neurochecks. CT head from this morning negative for any hemorrhagic findings. A1c 5.9, TSH 1.3, TG 140, cholesterol 155, LDL 68, HDL 59. Daughter confirms that patient takes aspirin 81 mg and atorvastatin 20 mg daily since her TIA about 10 years ago. She is compliant with medication. Denies any smoking or drinking history. Echo positive for bubble study. There is evidence of PFO intracardiac shunt. EF 55-60%. MRI showed multiple embolic type acute infarcts including left occipital lobe, left temporal lobe, left parietal lobe. -plan to start asa and plavix for 21 days -plavix and atorvastatin after 21 days -goal BP <180/105 -IV labetalol 10mg q4hr prn -PT -speech therapy -continue atorvastatin 80mg daily -sleep study outpatient -hypercoagulable workup for unexplained etiology -holter monitor outpatiet #HTN #Asthma #GERD #Electrolyte abnormalities Primary care team to manage above conditions and ongoing care needs. The patient's management plan was discussed with my attending physician Dr. Castellanos. Sarahi Null, PGY-2 Attending Provider Attestation/Addendum I personally have seen and examined the patient at the bedside and I agreed with resident's findings, assessment and plan of care. Echo positive for bubble study. There is evidence of PFO intracardiac shunt. EF 55-60%. MRI showed multiple embolic type acute infarcts including left occipital lobe, left temporal lobe, left parietal lobe. 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
--- NOTE | 2025-05-11 16:15 | ESPR_ITS ---
<Statement entered by Woody Morgan MD - 05/14/25 17:20> I reviewed above note and agree with findings and plans. I have also personally examined the patient with medicine team and went over assessment and plan with medical team including internal audit senior manager and resident physician. <Statement entered by Velia Gutiérrez MD - 05/11/25 17:41> I discussed with and supervised the internal audit senior manager physician who took care of this patient. I personally saw and examined the patient and discussed the assessment and plan with the entire medicine team, including my attending , I agree with the assessment and plan as documented below Velia Gutiérrez M.D. PGY-3 Disclaimer: Despite multiple revisions, due to the dictation software being used, the document bellow may not be free of grammatical errors including phonetic/typographic errors. However, this does not deter from our commitment to providing health care in the patient's best interest in mind. Documentation for date of: 05/11/25 Subjective Subjective Interval history: Patient seen at bedside. Labs and imaging were reviewed. Patient having slurring of speech since today. No other neurological symptoms. Brain MRI showed multiple embolic type acute infarcts including left occipital lobe, left temporal lobe, left parietal lobe. Patient and family were made aware of the result of MRI. Echo with bubble study was done, showed PFO. Pending further neuro recs. Exam Vital Signs Temp Pulse Resp BP Pulse Ox O2 Del Method 98.9 F 77 21 H 141/66 H 95 Room Air 05/11/25 12:00 05/11/25 15:00 05/11/25 14:02 05/11/25 15:00 05/11/25 15:00 05/11/25 12:00 Narrative Exam General: No acute distress; A&Ox3; [place] speaking Skin: Bilateral lower extremity scars on knees from previous surgery; bilateral lower extremity varicose veins (L side bandaged); warm, dry, no obvious rash. HEENT: NCAT, EOMI/PERRL, not icteric. External ears normal. No rhinorrhea. Moist mucous membranes Cardiovascular: Regular rate and rhythm, no murmur, +S1/S2. Respiratory: Mild R sided wheezes, lungs clear otherwise GI: Soft, mild epigastric tenderness, non-distended. No guarding or rebound tenderness. : No suprapubic tenderness. No flank tenderness bilaterally. Extremities: 1+ pitting edema, no cyanosis, no clubbing. Extremity pulses present Neuro: Slurring of speech. Grossly nonfocal. Moving all 4 extremities. Sensation equal, intact. Strength equal, intact. Psychiatric: Cooperative, appropriate affect. Objective Labs 05/11/25 04:23 05/11/25 04:23 Labs: Laboratory Results - last 24 hr 05/10/25 05/10/25 05/10/25 13:56 21:50 21:53 WBC RBC Hgb Hct MCV MCH MCHC RDW Std Deviation Plt Count Neut % (Auto) Lymph % (Auto) [place] % (Auto) Eos % (Auto) Baso % (Auto) Neut # (Auto) Lymph # (Auto) [place] # (Auto) Eos # (Auto) Baso # (Auto) Immature Gran # (Auto) Absolute Nucleated RBC Immature Gran % Nucleated RBC % PT INR APTT Sodium Potassium Chloride Carbon Dioxide Anion Gap BUN Creatinine Estim Creat Clear Calc eGFR BUN/Creatinine Ratio Glucose Estimated Ave Glu mg/dL Hemoglobin A1c Calculated Osmolality Calcium Corrected Calcium Phosphorus 3.6 Magnesium Total Bilirubin AST ALT Alkaline Phosphatase Total Protein Albumin Globulin Albumin/Globulin Ratio Triglycerides Cholesterol LDL Cholesterol, Calc HDL Cholesterol Cholesterol/HDL Ratio Ur Collection Type Catheter Urine Color Colorless A Urine Clarity Clear Urine pH 6.5 Ur Specific [place] 1.011 Urine Protein Negative Urine Glucose (UA) Trace Urine Ketones Negative Urine Blood Negative Urine Nitrite Negative Urine Bilirubin Negative Urine Urobilinogen (Auto) Negative Ur Leukocyte Esterase Negative Urine RBC 1 Urine WBC 1 Ur Squamous Epith Cells 0 Urine Bacteria None Ur Culture Indicated? Not Indicated Urine Opiates Screen Negative Urine Fentanyl Screen Negative Ur Barbiturates Screen Negative U Amphetamin/Meth Scrn Negative U Benzodiazepines Scrn Negative U Cocaine Metab Screen Negative U Marijuana (THC) Screen Negative 05/11/25 05/11/25 04:23 09:29 WBC 8.6 RBC 3.83 L Hgb 11.0 L Hct 34.4 L MCV 90 MCH 28.7 MCHC 32.0 RDW Std Deviation 46.8 H Plt Count 269 Neut % (Auto) 69 Lymph % (Auto) 21 [place] % (Auto) 8 Eos % (Auto) 1 Baso % (Auto) 0 Neut # (Auto) 6.0 Lymph # (Auto) 1.8 [place] # (Auto) 0.7 Eos # (Auto) 0.1 Baso # (Auto) 0.0 Immature Gran # (Auto) 0.04 H Absolute Nucleated RBC 0.00 Immature Gran % 1 H Nucleated RBC % 0 PT 10.1 10.3 INR 0.9 1.0 APTT 27.3 27.1 Sodium 142 Potassium 4.6 D Chloride 107 Carbon Dioxide 25.4 Anion Gap 10 BUN 10 Creatinine 0.5 L Estim Creat Clear Calc 125.8 eGFR > 60 BUN/Creatinine Ratio [address] Glu mg/dL 123 Hemoglobin A1c 5.9 Calculated Osmolality 283 Calcium 8.6 Corrected Calcium 8.6 Phosphorus 2.9 Magnesium 2.6 Total Bilirubin 0.4 AST 13 ALT 10 Alkaline Phosphatase 84 Total Protein 5.9 Albumin 4.0 Globulin 1.9 L Albumin/Globulin Ratio 2.1 Triglycerides 140 Cholesterol 155 LDL Cholesterol, Calc 68 HDL Cholesterol 59 Cholesterol/HDL Ratio 2.6 L Ur Collection Type Urine Color Urine Clarity Urine pH Ur Specific [place] Urine Protein Urine Glucose (UA) Urine Ketones Urine Blood Urine Nitrite Urine Bilirubin Urine Urobilinogen (Auto) Ur Leukocyte Esterase Urine RBC Urine WBC Ur Squamous Epith Cells Urine Bacteria Ur Culture Indicated? Urine Opiates Screen Urine Fentanyl Screen Ur Barbiturates Screen U Amphetamin/Meth Scrn U Benzodiazepines Scrn U Cocaine Metab Screen U Marijuana (THC) Screen Quality Measures Quality Measures VTE prophylaxis Advance care planning discussed with:: patient Assessment & Plan Assessment Current Active Medications: Generic Name Dose Route Start Last Admin Trade Name Freq PRN Reason Stop Dose Admin Acetaminophen 650 mg 05/10/25 15:26 Acetaminophen 325 Mg Tablet PO 06/09/25 15:25 Q6H PRN Fever >100.5 or pain 1-3 Albuterol/Ipratropium 3 ml 05/10/25 15:31 Albuterol/Ipratropium (Duoneb) Rt Lizeth 3 Ml Nebu INH 06/09/25 18:59 Q6HRRT PRN Dyspnea Aspirin 81 mg 05/12/25 09:00 Aspirin Ec 81 Mg Tabec PO 06/11/25 08:59 QDAY RAZA Atorvastatin Calcium 80 mg 05/12/25 21:00 Atorvastatin Calcium 20 Mg Tablet PO 06/11/25 20:59 HS RAZA Nicardipine/Sodium Chloride 20 mg in 200 mls @ 50 mls/hr 05/10/25 13:37 Cardene Ivpb IV 06/09/25 13:36 .Q4H PRN Per Nicardipine Stroke Protocol Protocol 5 MG/HR Labetalol HCl 10 mg 05/10/25 16:26 05/11/25 10:12 Labetalol Inj 5 Mg/Ml Vial 20 Ml IVP 10 mg [id number] PRN Administration SBP > 180 mmHg or DBP > 105 Ondansetron HCl 4 mg 05/10/25 15:26 Ondansetron Inj 2 Mg/Ml Inj 2 Ml IVP 06/09/25 15:25 Q6H PRN NAUSEA OR VOMITING Protocol Pantoprazole Sodium 40 mg 05/11/25 09:00 05/11/25 09:06 Pantoprazole Inj 40 Mg Vial IVP 06/10/25 08:59 40 mg QDAY RAZA Administration Plan 64-year-old female with past medical history significant for hypertension, hyperlipidemia, reported prior TIA, asthma, osteopenia, GERD presented to the ED with chief complaint of weakness and confusion. Patient was admitted to ICU for management of stroke s/p TNK. #CVA s/p TNK Initially presented to the ED with confusion, weakness, and slurred speech. NIHSS score was 4 at presentation. She received 25 mg of TNK in the ED and showed significant improvement in symptoms afterward. CT head (05/11) negative for any hemorrhagic findings. Labs: A1c: 5.9 TSH: 1.3 T Cholesterol: 155 LDL: 68 HDL: 59 Patient is on aspirin 81 mg and atorvastatin 20 mg daily, compliant since her TIA approximately 10 years ago. Denies smoking or drinking history. Echo 05/11: Positive for bubble study, demonstrating a PFO intracardiac shunt. EF 55-60%. MRI 05/11: Revealed multiple embolic-type acute infarcts, including in the left occipital lobe, left temporal lobe, and left parietal lobe. Plan: - Start: Aspirin 81 mg and Plavix 75 mg daily for 21 days. - Post-21 days: Continue Plavix and increase atorvastatin to 80 mg daily. - Goal BP: <180/105 - Administer IV labetalol 10 mg q4hr prn for BP control. - PT to address any motor deficits. - Speech Therapy to address speech and language deficits. - Sleep Study: Outpatient, to assess for sleep apnea or other contributing factors. - Hypercoagulable Workup: To investigate unexplained etiology of the stroke. - Holter Monitor: Outpatient, to assess for any arrhythmias that may have contributed to the embolic event. #HTN -Permissive HTN <180/105 s/p TNK -Labetalol 10 mg IV PRN for elevated BP #Hx of Asthma -Duonebs PRN #Hx of GERD -Protonix 40 mg IV qday #hypokalemia, resolved #Normocytic Anemia Hgb 11.2 on admission, stable Patient was reported to have transient bleed from varicose vein No longer bleeding now or any other signs or symptoms of bleeding Rx: -Will monitor for signs of bleeding, will trend hgb labs. Health Maintenance: Diet: cardiac GI prophylaxis: Protonix 40mg daily DVT prophylaxis: SCDs Antibiotics: NONE CODE STATUS: FULL Disposition: TELE Case discussed with my attending Dr. Morgan, and senior resident, Dr. Marla Painting MD PGY-1
[2025-05-11] MEDS: ACETAMINOPHEN 325 MG TABLET 650 MG PO (17:14)
[2025-05-11] MEDS: ATORVASTATIN CALCIUM 20 MG TABLET 80 MG PO (17:14)
[2025-05-12] VITALS (8 sets, daily range): BP systolic 124–163; BP diastolic 69–86; PULSE 71–95; RESP 12–99; TEMP 36.1–36.7; O2SAT 94–98; BMI 42.5
[2025-05-12 06:07] LABS: Basophils # (Auto) 0.1 Thou/mm3 (0.0-0.2); Basophils % (Auto) 1 % (0-2.5); Eosinophils # (Auto) 0.2 Thou/mm3 (0.0-0.5); Eosinophils % (Auto) 3 % (0-10); Hematocrit 36.2 % (36.0-46.0); Hemoglobin 11.3 g/dL (12.0-16.0); Immature Granulocytes Auto 0.03 Thou/mm3 (0.00-0.00); Lymphocytes # (Auto) 1.8 Thou/mm3 (1.0-4.8); Lymphocytes % (Auto) 26 % (10-50); Mean Corpuscular HGB Conc 31.2 g/dl (31.0-37.0); Mean Corpuscular Hemoglobin 28.6 pg (25.0-35.0); Mean Corpuscular Volume 92 fL (80-100); Monocytes # (Auto) 0.7 Thou/mm3 (0.0-0.8); Monocytes % (Auto) 10 % (0-12); Neutrophils # (Auto) 4.2 Thou/mm3 (1.8-7.7); Neutrophils % (Auto) 60 % (37-80); Nucleated Red Blood Cell # 0.00 Thou/mm3 (0.00-0.00); Nucleated Red Blood Cell % 0 /100 WBC (0); Platelet Count 244 Thou/mm3 (140-440); RDW Standard Deviation 49.8 fL (36.4-46.3); Red Blood Count 3.95 Miln/mm3 (4.00-5.20); White Blood Count 7.0 Thou/mm3 (3.6-11.0)
[2025-05-12 06:42] LABS: Alanine Aminotransferase 10 U/L (10-49); Albumin, Serum 4.2 gm/dL (3.4-4.8); Albumin/Globulin Ratio 2.2 (1.2-2.2); Alkaline Phosphatase 84 U/L (46-116); Anion Gap 12 (7-16); Aspartate Amino Transferase 15 U/L (0-34); BUN/Creatinine Ratio 17 Ratio (12-20); Bilirubin,Total 0.5 mg/dL (0.3-1.2); Blood Urea Nitrogen 12 mg/dL (9-23); Calcium 8.8 mg/dL (8.3-10.6); Calcium (Corrected) 8.8 mg/dL (8.5-10.1); Carbon Dioxide 24.6 mMol/L (20.0-31.0); Chloride 104 mMol/L (98-107); Creatinine (Component) 0.7 mg/dL (0.6-1.3); Estimated Creatinine Clearance 90.1 mL/min (>60); Globulin 1.9 gm/dL (2.3-3.5); Glucose 107 mg/dL (74-106); Magnesium 2.3 mg/dL (1.6-2.6); Osmolality,Calculated 280 (275-295); Phosphorous 4.8 mg/dL (2.4-5.1); Potassium 3.8 mMol/L (3.4-5.1); Sodium 141 mMol/L (136-145); Total Protein 6.1 gm/dL (5.7-8.2); eGFR > 60 See Note
--- NOTE | 2025-05-12 07:56 | XR_ITS ---
Examination: Venous duplex lower extremity sonogram, bilateral. Date and time of exam: May 12, 2025, 0819 hours INDICATIONS: Right leg pain beginning 6 months ago, varicose vein surgery April 28, 2025 Technique: Multiple sonographic images of the deep venous system have been obtained. B-mode/2-D grayscale imaging of vascular structures and Doppler spectral analysis (waveforms) and color performed Both legs are examined. Findings: Deep venous systems do not demonstrate abnormal echogenicity. No DVT noted in the deep venous system right leg Left leg visualization is significantly impaired secondary to bandaging material, no diagnostic visualization mid and distal left superficial femoral left popliteal left peroneal veins Visualized left common femoral posterior tibial and greater saphenous veins are open IMPRESSION: Limited study No acute DVT demonstrated
[2025-05-12] MEDS: CLOPIDOGREL BISULFATE 75 MG TABLET PO (08:12)
[2025-05-12] MEDS: ASPIRIN EC 81 MG TABEC PO (08:12)
--- NOTE | 2025-05-12 08:33 | CHAP ---
Patient was visited by a Spiritual Care Volunteer on 05/11/2025 between 0900 and 1130 and received comfort, encouragement and/or prayer.
--- NOTE | 2025-05-12 11:41 | ESPR_ITS ---
<Statement entered by Woody Morgan MD - 05/17/25 08:34> I reviewed above note and agree with findings and plans. I have also personally examined the patient with medicine team and went over assessment and plan with medical team including internal revenue service agent and resident physician. <Statement entered by Morris Bunn MD - 05/12/25 16:17> Patient seen and assessed in hospital bed denies having any concerning symptoms. Patient continues to have some dysarthria but otherwise neurologic findings are unremarkable. PT eval does not recommend SNF placement but we will consider additional therapy especially for speech. Echo findings are positive for PFO, as a result cardiology has been consulted for SHEMAR to rule out thrombus. Patient will likely require outpatient cardiology follow-up for PFO closure. Ultrasound of the bilateral lower extremities does not show any acute DVT. Will continue monitoring and follow-up on recommendations from neurology and cardiology. I have personally seen and examined the patient. I agree with the resident's assessment and plan as documented below. Morris Bunn DO PGY-2 Internal Medicine - [employer] Documentation for date of: 05/12/25 Subjective Subjective Interval history: Patient seen at bedside. Labs and imaging were reviewed. Patient's slurring of speech slightly improved. No other neurological symptoms. Brain MRI showed multiple embolic type acute infarcts including left occipital lobe, left temporal lobe, left parietal lobe. Patient and family were made aware of the result of MRI. Echo with bubble study was done, showed PFO. Cardiology was consulted, Dr. Velasquez to perform SHEMAR tomorrow to close PFO. Exam Vital Signs Temp Pulse Resp BP Pulse Ox O2 Del Method 97.3 F 84 12 152/74 H 97 Room Air 05/12/25 08:00 05/12/25 08:00 05/12/25 08:00 05/12/25 08:00 05/12/25 08:00 05/12/25 08:00 Narrative Exam General: No acute distress; A&Ox3; Yoruba speaking Skin: Bilateral lower extremity scars on knees from previous surgery; bilateral lower extremity varicose veins (L side bandaged); warm, dry, no obvious rash. HEENT: NCAT, EOMI/PERRL, not icteric. External ears normal. No rhinorrhea. Moist mucous membranes Cardiovascular: Regular rate and rhythm, no murmur, +S1/S2. Respiratory: Mild R sided wheezes, lungs clear otherwise GI: Soft, mild epigastric tenderness, non-distended. No guarding or rebound tenderness. : No suprapubic tenderness. No flank tenderness bilaterally. Extremities: 1+ pitting edema, no cyanosis, no clubbing. Extremity pulses present Neuro: Mild slurring of speech. Grossly nonfocal. Moving all 4 extremities. Sensation equal, intact. Strenth equal, intact. Psychiatric: Cooperative, appropriate affect. Objective Labs 05/12/25 04:24 05/12/25 04:24 Labs: Laboratory Results - last 24 hr 05/12/25 04:24 WBC 7.0 RBC 3.95 L Hgb 11.3 L Hct 36.2 MCV 92 MCH 28.6 MCHC 31.2 RDW Std Deviation 49.8 H Plt Count 244 Neut % (Auto) 60 Lymph % (Auto) 26 [place]ardo % (Auto) 10 Eos % (Auto) 3 Baso % (Auto) 1 Neut # (Auto) 4.2 Lymph # (Auto) 1.8 [place] # (Auto) 0.7 Eos # (Auto) 0.2 Baso # (Auto) 0.1 Immature Gran # (Auto) 0.03 H Absolute Nucleated RBC 0.00 Immature Gran % 0 Nucleated RBC % 0 Sodium 141 Potassium 3.8 D Chloride 104 Carbon Dioxide 24.6 Anion Gap 12 BUN 12 Creatinine 0.7 Estim Creat Clear Calc 90.1 eGFR > 60 BUN/Creatinine Ratio 17 Glucose 107 H Calculated Osmolality 280 Calcium 8.8 Corrected Calcium 8.8 Phosphorus 4.8 Magnesium 2.3 Total Bilirubin 0.5 AST 15 ALT 10 Alkaline Phosphatase 84 Total Protein 6.1 Albumin 4.2 Globulin 1.9 L Albumin/Globulin Ratio 2.2 Quality Measures Quality Measures VTE prophylaxis Advance care planning discussed with:: patient Assessment & Plan Assessment Current Active Medications: Generic Name Dose Route Start Last Admin Trade Name Freq PRN Reason Stop Dose Admin Acetaminophen 650 mg 05/10/25 15:26 05/11/25 17:14 Acetaminophen 325 Mg Tablet PO 06/09/25 15:25 650 mg Q6H PRN Administration Fever >100.5 or pain 1-3 Albuterol/Ipratropium 3 ml 05/10/25 15:31 Albuterol/Ipratropium (Duoneb) Rt Lizeth 3 Ml Nebu INH 06/09/25 18:59 Q6HRRT PRN Dyspnea Aspirin 81 mg 05/12/25 09:00 05/12/25 08:12 Aspirin Ec 81 Mg Tabec PO 06/11/25 08:59 81 mg QDAY RAZA Administration Atorvastatin Calcium 80 mg 05/12/25 21:00 Atorvastatin Calcium 20 Mg Tablet PO 06/11/25 20:59 HS RAZA Clopidogrel Bisulfate 75 mg 05/12/25 09:00 05/12/25 08:12 Clopidogrel Bisulfate 75 Mg Tablet PO 06/11/25 08:59 75 mg QDAY RAZA Administration Labetalol HCl 10 mg 05/10/25 16:26 05/11/25 10:12 Labetalol Inj 5 Mg/Ml Vial 20 Ml IVP 10 mg PRNMRX1 PRN Administration SBP > 180 mmHg or DBP > 105 Ondansetron HCl 4 mg 05/10/25 15:26 Ondansetron Inj 2 Mg/Ml Inj 2 Ml IVP 06/09/25 15:25 Q6H PRN NAUSEA OR VOMITING Protocol Pantoprazole Sodium 40 mg 05/11/25 09:00 05/12/25 08:11 Pantoprazole Inj 40 Mg Vial IVP 06/10/25 08:59 40 mg QDAY RAZA Administration Plan 64-year-old female with past medical history significant for hypertension, hyperlipidemia, reported prior TIA, asthma, osteopenia, GERD presented to the ED with chief complaint of weakness and confusion. Patient was admitted to ICU for management of stroke s/p TNK. #CVA s/p TNK Initially presented to the ED with confusion, weakness, and slurred speech. NIHSS score was 4 at presentation. She received 25 mg of TNK in the ED and showed significant improvement in symptoms afterward. CT head (05/11) negative for any hemorrhagic findings. Labs: A1c: 5.9 TSH: 1.3 T Cholesterol: 155 LDL: 68 HDL: 59 Patient is on aspirin 81 mg and atorvastatin 20 mg daily, compliant since her TIA approximately 10 years ago. Denies smoking or drinking history. Echo 05/11: Positive for bubble study, demonstrating a PFO intracardiac shunt. EF 55-60%. MRI 05/11: Revealed multiple embolic-type acute infarcts, including in the left occipital lobe, left temporal lobe, and left parietal lobe. Plan: - Cardio consulted, Dr. Anumandla to perform SHEMAR tomorrow to close PFO. - Start: Aspirin 81 mg and Plavix 75 mg daily for 21 days. - Post-21 days: Continue Plavix and increase atorvastatin to 80 mg daily. - Goal BP: <180/105 - Administer IV labetalol 10 mg q4hr prn for BP control. - PT to address any motor deficits. - Speech Therapy to address speech and language deficits. - Sleep Study: Outpatient, to assess for sleep apnea or other contributing factors. - Hypercoagulable Workup: To investigate unexplained etiology of the stroke. - Holter Monitor: Outpatient, to assess for any arrhythmias that may have contributed to the embolic event. #HTN -Permissive HTN <180/105 s/p TNK -Labetalol 10 mg IV PRN for elevated BP #Hx of Asthma -Duonebs PRN #Hx of GERD -Protonix 40 mg IV qday #hypokalemia, resolved #Normocytic Anemia Hgb 11.2 on admission, stable Patient was reported to have transient bleed from varicose vein No longer bleeding now or any other signs or symptoms of bleeding Rx: -Will monitor for signs of bleeding, will trend hgb labs. Health Maintenance: Diet: cardiac GI prophylaxis: Protonix 40mg daily DVT prophylaxis: SCDs Antibiotics: NONE CODE STATUS: FULL Disposition: TELE Case discussed with my attending Dr. Morgan, and senior resident, Dr. Marla Painting MD PGY-1
--- NOTE | 2025-05-12 13:13 | PD.RESCONSUL ---
HPI Data of Consult Requesting Physician: Woody Morgan MD Admitting Provider: Champ Horta MD Attending Provider: Woody Morgan MD Primary Care Provider: Physician No Primary/Family Consult Narrative History of present illness: Patient is a Greek speaking 64 year old female with PMH of hypertension, hyperlipidemia, reported prior TIA 10 years ago (facial droop, resolved), asthma, osteopenia, GERD who presented on 05/10/25 for confusion, weakness, and slurred speech. NIHSS score was [address] head and CTA head/neck were negative. Received 25 mg of TNK in the ED with significant improvement in symptoms. MRI 05/11/25 showed multiple embolic-type acute infarcts, including in the left occipital lobe, left temporal lobe, and left parietal lobe. Echocardiogram 05/11/25 was positive for PFO intra-cardiac shunt, EF 55-60%. Patient reports she has never seen a incendiary powder mixer before, only vascular surgeon Dr Quintanilla for varicose vein removal (right on 06/2024, left on 04/30/25). No known personal of family history of heart disease, MIs, or arrhythmias. Cardiology was consulted for potential PFO closure. Plan for SHEMAR tomorrow, NPO after midnight. Past Medical History: as above Family History: Stroke in father and mother. No known family history of cardiac disease. Surgical History: Varicose vein ablation bilaterally about 1 year ago, knee replacement surgery, appendectomy, cholecystectomy (2018) Social History: Denies history of smoking, denies current alcohol use, denies recreational drug use. Lives at home with son. Current Medications: albuterol inhaler, amlodipine 10 mg daily, ASA 81 mg daily, atorvastatin 20 mg daily, Advair, HCTZ 25 mg BID, sertraline 100 mg daily, tramadol 50 mg prn Allergies: No known drug allergies cc:: cc: Woody Morgan MD Exam Vital Signs Temp Pulse Resp BP Pulse Ox O2 Del Method 98.1 F 78 16 163/69 H 98 Room Air 05/12/25 12:00 05/12/25 12:00 05/12/25 12:00 05/12/25 12:00 05/12/25 12:00 05/12/25 12:00 Narrative Exam Physical Exam General: Awake and in no acute distress. Conversational and non-toxic appearing. Pleasant Greek speaking lady. Slurred speech. HEENT: Normocephalic, atraumatic, mucous membranes moist. Heart: Regular rate and rhythm, normal S1 and S2, no murmurs appreciated. Lungs: Clear to auscultation with no wheezing or crackles. Abdomen: Soft, nondistended, nontender, positive bowel sounds. No guarding or rebound tenderness. Neurologic: Alert and oriented x3, no gross neurological deficit, and patient able to move all 4 extremities. Extremities: No edema. Skin: No rash or ecchymoses. Results Labs 05/12/25 04:24 05/12/25 04:24 Labs: Short CBC 05/12/25 Range/Units 04:24 WBC 7.0 (3.6-11.0) Thou/mm3 Hgb 11.3 L (12.0-16.0) g/dL Hct 36.2 (36.0-46.0) % Plt Count 244 (140-440) Thou/mm3 BMP 05/12/25 04:24 Sodium 141 Potassium 3.8 D Chloride 104 Carbon Dioxide 24.6 BUN 12 Creatinine 0.7 Glucose 107 H Calcium 8.8 Liver Function 05/12/25 Range/Units 04:24 Total Bilirubin 0.5 (0.3-1.2) mg/dL AST 15 (0-34) U/L ALT 10 (10-49) U/L Alkaline Phosphatase 84 (46-116) U/L Albumin 4.2 (3.4-4.8) gm/dL Quality Measures Quality Measures VTE prophylaxis Advance care planning discussed with:: patient Medications Home Medications and Allergies Home Medications ?Medication ?Instructions ?Recorded ?Confirmed ?Type sertraline 100 mg tablet (Zoloft) 100 mg PO QDAY 04/27/25 05/11/25 History hydrochlorothiazide 25 mg tablet 25 mg PO Q12H 05/11/25 05/11/25 History tramadol 50 mg tablet 50 mg PO Q12H PRN pain 05/11/25 05/11/25 History Allergies Allergy/AdvReac Type Severity Reaction Status Date / Time No Known Allergies Allergy Verified 05/06/25 10:54 Visit Medications Acetaminophen (Acetaminophen 325 Mg Tablet) 650 mg PO Q6H PRN PRN Reason: Fever >100.5 or pain 1-3 Stop: 06/09/25 15:25 Last Admin: 05/11/25 17:14 Dose: 650 mg Albuterol/Ipratropium (Albuterol/Ipratropium (Duoneb) Rt Lizeth 3 Ml Nebu) 3 ml INH Q6HRRT PRN PRN Reason: Dyspnea Stop: 06/09/25 18:59 Aspirin (Aspirin Ec 81 Mg Tabec) 81 mg PO QDAY RAZA Stop: 06/11/25 08:59 Last Admin: 05/12/25 08:12 Dose: 81 mg Atorvastatin Calcium (Atorvastatin Calcium 20 Mg Tablet) 80 mg PO HS [facility] Stop: 06/11/25 20:59 Clopidogrel Bisulfate (Clopidogrel Bisulfate 75 Mg Tablet) 75 mg PO QDAY [facility] Stop: 06/11/25 08:59 Last Admin: 05/12/25 08:12 Dose: 75 mg Labetalol HCl (Labetalol Inj 5 Mg/Ml Vial 20 Ml) 10 mg IVP PRNMRX1 PRN PRN Reason: SBP > 180 mmHg or DBP > 105 Last Admin: 05/11/25 10:12 Dose: 10 mg Ondansetron HCl (Ondansetron Inj 2 Mg/Ml Inj 2 Ml) 4 mg IVP Q6H PRN; Protocol PRN Reason: NAUSEA OR VOMITING Stop: 06/09/25 15:25 Pantoprazole Sodium (Pantoprazole Inj 40 Mg Vial) 40 mg IVP QDAY [facility] Stop: 06/10/25 08:59 Last Admin: 05/12/25 08:11 Dose: 40 mg Discontinued Medications Alprazolam (Alprazolam 0.25 Mg Tablet) 0.5 mg PO X1 ONE Stop: 05/11/25 09:24 Last Admin: 05/11/25 14:03 Dose: 0.5 mg Aspirin (Aspirin 325 Mg Tablet) 325 mg PO X1 ONE Stop: 05/11/25 16:01 Last Admin: 05/11/25 17:13 Dose: 325 mg Atorvastatin Calcium (Atorvastatin Calcium 20 Mg Tablet) 80 mg PO X1 ONE Stop: 05/11/25 16:01 Last Admin: 05/11/25 17:14 Dose: 80 mg Nicardipine/Sodium Chloride (Cardene Ivpb) 20 mg in 200 mls @ 50 mls/hr IV .Q4H PRN; Protocol PRN Reason: Per Nicardipine Stroke Protocol Stop: 06/09/25 13:36 Potassium Chloride (Kcl Ivpb) 10 meq in 100 mls @ 100 mls/hr IV Q1H [facility] Stop: 05/10/25 16:39 Last Admin: 05/10/25 19:10 Dose: 60 mls/hr Lactated Ringer's (Lactated Ringers) 1,000 mls @ 75 mls/hr IV .[id number] [facility] Stop: 05/11/25 05:04 Last Admin: 05/10/25 17:03 Dose: Not Given Potassium Chloride (Kcl Ivpb) 10 meq in 100 mls @ 100 mls/hr IV Q1H [facility] Stop: 05/10/25 19:40 Last Admin: 05/11/25 02:28 Dose: 60 mls/hr Lactated Ringer's (Lactated Ringers) 1,000 mls @ 100 mls/hr IV .Q10H [facility] Stop: 05/11/25 02:44 Last Admin: 05/10/25 16:59 Dose: 100 mls/hr Magnesium Sulfate (Magnesium Sulfate Ivpb) 4 gm in 50 mls @ 12.5 mls/hr IV X1 ONE Stop: 05/11/25 04:17 Last Admin: 05/11/25 00:35 Dose: 12.5 mls/hr Labetalol HCl (Labetalol Inj 5 Mg/Ml Vial 20 Ml) 10 mg IVP PRNMRX1 PRN PRN Reason: SBP > 185 mmHg and/or DBP > 110 Labetalol HCl (Labetalol Inj 5 Mg/Ml Vial 20 Ml) 10 mg IVP PRNMRX1 PRN PRN Reason: SBP > 180 mmHg or DBP > 105 Oxycodone/Acetaminophen (Oxycodone/Apap 5/325 Tablet) 1 tab GT X1 ONE Stop: 05/11/25 10:25 Last Admin: 05/11/25 10:33 Dose: Not Given Potassium Chloride (Potassium Chloride 10% 20 Meq/15 Ml Udc) 40 meq GT X1 ONE Stop: 05/11/25 00:21 Last Admin: 05/11/25 00:35 Dose: 40 meq Tenecteplase (Tenecteplase Inj 50 Mg Vial) 25 mg IV X1 ONE Stop: 05/10/25 13:38 Last Admin: 05/10/25 13:44 Dose: 25 mg Assessment & Plan Plan Patient is a Greek speaking 64 year old female with PMH of hypertension, hyperlipidemia, reported prior TIA 10 years ago (facial droop, resolved), asthma, osteopenia, GERD who presented on 05/10/25 for confusion, found to have multiple CVA of left parietal, frontal, and temporal lobes. Cardiology consulted for potential PFO closure. #CVA, multiple acute in left occipital lobe, left temporal lobe, left parietal lobe, s/p TNK #PFO on echocardiogram Presented with slurred speech, weakness, and confusion. S/p TNK 25 mg in ED as patient was within window. Significant improvement but continues to slur words with mild right lower facial droop. Also tends to ramble about subjects not pertaining to question. No known personal or family history of heart disease, HI, or arrhythmia. Positive family history of stroke (both parents). Prior TIA 10 years ago, presented with facial droop but resolved. Home medications include atorvastatin 20 mg daily and ASA 81 mg. BP 167/80 on admission, HR 82, saturating well on room air. Troponin negative. Lipid panel 05/11 showed trig 140, cholesterol 155, LDL 68, HDL 59. TSH 1.30, T4 5.4. A1c 5.9. EKG 05/10/25 and 05/11 showed sinus rhythm with no ST or T wave abnormalities. No arrhythmias noted on telemetry. Echo 05/10/25 showed Positive bubble study. Agitated saline contrast was performed, with evidence of PFO intra-cardiac shunt. Normal left ventricular size and function. Approximate ejection fraction is 55-60%. Trace mitral and trace tricuspid regurgitation Score: ASCVD score: 11.4% risk fo CV event in next 10 years, recommend moderate to high intensity statin Plan: - Patient denies any kind of swallowing problems or any kind of esophageal interventions or previous surgeries. - Patient denies any kind of gastric ulcers bleeding and any other hematemesis or hematochezia. - Patient denies any issues with anesthesia previously. - Patient explained all the risks, benefits and alternatives of SHEMAR including the risk of perforation, bleeding, respiratory failure secondary to sedation, injury to teeth gums esophagus and stomach. Patient understands all risks and benefits and provided consent for the procedure. - We will keep her n.p.o. overnight and plan for SHEMAR tomorrow morning for proper evaluation of PFO. - Check TSH A1c and lipid profile for further cardiac risk stratification. - On ASA 81 mg, Plavix 75 mg daily, atorvastatin 80 mg daily #HTN - Permissive HTN <185/110 after 24-48 hours - Restart amlodipine 10 mg if becomes hypertensive, keep BP <130/80 #HLD - atorvastatin as above #Prediabetic #Hx asthma #Hx GERD #Hypokalemia, resolved #Normocytic anemia Thank you for your consultation, please do not hesitate to reach out if you have any question or concern Patient plan of care was discussed with the attending physician, Dr. Velasquez. Erika Jones, PGY-1 Attending Provider Attestation/Addendum I have personally seen and examined the patient separately on the above date of service and discussed the plan of care with the resident. I reviewed the resident Dr. Erika Jones consultation progress note and agree with the resident findings and plan in the note above and have also edited the documentation to reflect my findings and plan. 66-year-old female with a past medical history of essential hypertension, hyperlipidemia, history of TIA previously with left facial droop which resolved, asthma, osteopenia, osteoporosis, GERD, history of H. pylori, chronic back pain, morbid obesity with a BMI greater than 40, osteoarthritis with knee replacement, mild chronic anemia, depression, questionable fibromyalgia, history of varicose veins status post ablation presented to the emergency department for altered mental status or confusion with weakness as well as slurred speech. Patient was admitted to the hospitalist CTA head and CTA head and neck were done and ruled out any kind of hemorrhage stroke. MRI showed multiple embolic type acute infarcts with involving the left occipital lobe, left temporal lobe as well as left parietal lobe. Patient was within the window for thrombolysis and received 25 mg of TNK in the emergency department with significant improvement of the symptoms. An echocardiogram was performed on 05/11/2025 which shows positive for possible PFO or intracardiac shunt. Rest of the echocardiogram did show normal LV function with an EF of 55 to 60%, normal RV function and mild valvular abnormalities. Patient does have a history of prior CVA 10 years ago with facial droop that resolved and now has a new onset stroke. Patient does have multiple other risk factors for CVA. Cardiology now consulted for further evaluation of the PFO. Patient will need a SHEMAR for further evaluation and characterization of the PFO and confirmation of the diagnosis. Her ROPE score is 4 and will need complete evaluation for etiology of the stroke. Patient will continue complete stroke including hypercoagulable workup, long-term Holter monitoring to rule out any kind of occult atrial fibrillation and rule out any kind of atherosclerotic aortic disease before any intervention can be performed on the PFO. Neurology following and further treatment of the stroke as per the neurology. Check TSH A1c and lipid profile for further cardiac restratification. Troponin negative. Lipid panel 05/11 showed trig 140, cholesterol 155, LDL 68, HDL 59. TSH 1.30, T4 5.4. A1c 5.9. Patient denies any kind of swallowing problems or any kind of esophageal interventions or previous surgeries. Patient denies any kind of gastric ulcers bleeding and any other hematemesis or hematochezia. Patient denies any issues with anesthesia previously. Patient explained all the risks, benefits and alternatives of SHEMAR including the risk of perforation, bleeding, respiratory failure secondary to sedation, injury to teeth gums esophagus and stomach. Patient understands all risks and benefits and provided consent for the procedure. We will keep him n.p.o. overnight and plan for SHEMAR in the morning. There is a high probability of sudden, clinically significant or life threatening deterioration in the patient condition which required the highest level of physician preparedness to intervene urgently. I have personally spent 35 minutes of critical care time, exclusive of time spent on any procedures, in evaluation and management of this critically ill patient. Management of rest of the medical conditions as per primary team and other consultants. Thank you for the consult and allowing me to participate in the care of the patient. Cardiology will continue to follow. Nikolay Velasquez M.D. Interventional Cardiology Nikolay Velasquez M.D. Interventional Cardiology
--- NOTE | 2025-05-12 16:00 | PD.RESPRO ---
Documentation for date of: 05/12/25 Subjective Subjective Interval history: Patient examined at bedside. Vitals are stable, labs unremarkable. Today patient has no major complaints stating that she is feeling better. Worked well with physical therapy but has some pain in legs due to knee replacement on right and the varicose veins on left. Speech impairment has improved since yesterday. She has passed swallow eval. Cardiology planning for SHEMAR tomorrow to assess PFO finding on echo. Continue aspirin, Plavix, atorvastatin for embolic stroke. Exam Vital Signs Temp Pulse Resp BP Pulse Ox O2 Del Method 98.1 F 78 16 163/69 H 98 Room Air 05/12/25 12:00 05/12/25 12:00 05/12/25 12:00 05/12/25 12:00 05/12/25 12:00 05/12/25 12:00 Narrative Exam General: elderly female, obese, No acute distress, cooperative HEENT: NCAT, No JVD noted. Mucosa moist. Pupils are equal and reactive to light bilaterally Cardiovascular: Normal S1 and S2. Regular rate and rhythm. Respiratory: Lungs are clear to auscultation bilaterally. No wheezing or crackles heard. Abdomen: Soft, nontender, not distended, normal bowel sounds. Skin: Warm to touch, dry, no rashes noted Musculoskeletal: No gross injuries. Able to move all 4 extremities. No pitting edema Neuro: Alert and oriented x3. Cranial nerves: II through XII grossly intact. Speech and language: dsyarthria resolved, no dysphagia. Motor system: Tone and bulk: Normal: Strength: 5 out of 5 in all 4 extremities; No pronator drift noted. Plantar reflex: Downgoing bilaterally. Sensory system: Intact to all modalities of sensation bilaterally. Coordination: Intact to [id number] test. No ataxia, no dysmetria, or dysdiadochokinesia noted. No intention tremors noted. Gait: Not tested. No signs of meningeal irritation noted. Psych: Normal affect and mood Objective Labs 05/14/25 05:52 05/14/25 05:52 Labs: Laboratory Results - last 24 hr 05/12/25 04:24 WBC 7.0 RBC 3.95 L Hgb 11.3 L Hct 36.2 MCV 92 MCH 28.6 MCHC 31.2 RDW Std Deviation 49.8 H Plt Count 244 Neut % (Auto) 60 Lymph % (Auto) 26 [place] % (Auto) 10 Eos % (Auto) 3 Baso % (Auto) 1 Neut # (Auto) 4.2 Lymph # (Auto) 1.8 [place] # (Auto) 0.7 Eos # (Auto) 0.2 Baso # (Auto) 0.1 Immature Gran # (Auto) 0.03 H Absolute Nucleated RBC 0.00 Immature Gran % 0 Nucleated RBC % 0 Sodium 141 Potassium 3.8 D Chloride 104 Carbon Dioxide 24.6 Anion Gap 12 BUN 12 Creatinine 0.7 Estim Creat Clear Calc 90.1 eGFR > 60 BUN/Creatinine Ratio 17 Glucose 107 H Calculated Osmolality 280 Calcium 8.8 Corrected Calcium 8.8 Phosphorus 4.8 Magnesium 2.3 Total Bilirubin 0.5 AST 15 ALT 10 Alkaline Phosphatase 84 Total Protein 6.1 Albumin 4.2 Globulin 1.9 L Albumin/Globulin Ratio 2.2 Quality Measures Quality Measures VTE prophylaxis Advance care planning discussed with:: patient Assessment & Plan Assessment Current Active Medications: Generic Name Dose Route Start Last Admin Trade Name Freq PRN Reason Stop Dose Admin Acetaminophen 650 mg 05/10/25 15:26 05/11/25 17:14 Acetaminophen 325 Mg Tablet PO 06/09/25 15:25 650 mg Q6H PRN Administration Fever >100.5 or pain 1-3 Albuterol/Ipratropium 3 ml 05/10/25 15:31 Albuterol/Ipratropium (Duoneb) Rt Lizeth 3 Ml Nebu INH 06/09/25 18:59 Q6HRRT PRN Dyspnea Aspirin 81 mg 05/12/25 09:00 05/12/25 08:12 Aspirin Ec 81 Mg Tabec PO 06/11/25 08:59 81 mg QDAY RAZA Administration Atorvastatin Calcium 80 mg 05/12/25 21:00 Atorvastatin Calcium 20 Mg Tablet PO 06/11/25 20:59 HS RAZA Clopidogrel Bisulfate 75 mg 05/12/25 09:00 05/12/25 08:12 Clopidogrel Bisulfate 75 Mg Tablet PO 06/11/25 08:59 75 mg QDAY RAZA Administration Labetalol HCl 10 mg 05/10/25 16:26 05/11/25 10:12 Labetalol Inj 5 Mg/Ml Vial 20 Ml IVP 10 mg [id number] PRN Administration SBP > 180 mmHg or DBP > 105 Ondansetron HCl 4 mg 05/10/25 15:26 Ondansetron Inj 2 Mg/Ml Inj 2 Ml IVP 06/09/25 15:25 Q6H PRN NAUSEA OR VOMITING Protocol Pantoprazole Sodium 40 mg 05/11/25 09:00 05/12/25 08:11 Pantoprazole Inj 40 Mg Vial IVP 06/10/25 08:59 40 mg QDAY RAZA Administration Plan Patient is a 64-year-old female with past medical history significant for hypertension, hyperlipidemia, reported prior TIA (facial droop, resolved), asthma, osteopenia, gerd presented to the ED with chief complaint of weakness and confusion. She is in ICU s/p TNK. Neurology consutled for management. #embolic stroke Left occipital lobe, left temporal lobe, left parietal lobe s/p TNK #PFO Initially presented to ED with confusion, weakness, slurred speech. NIHSS score was 4. She received 25 mg of TNK while in the ED. Appeared to have significant improvement of symptoms after administration. Currently in ICU for hourly neurochecks. CT head from this morning negative for any hemorrhagic findings. A1c 5.9, TSH 1.3, TG 140, cholesterol 155, LDL 68, HDL 59. Daughter confirms that patient takes aspirin 81 mg and atorvastatin 20 mg daily since her TIA about 10 years ago. She is compliant with medication. Denies any smoking or drinking history. Echo positive for bubble study. There is evidence of PFO intracardiac shunt. EF 55-60%. MRI showed multiple embolic type acute infarcts including left occipital lobe, left temporal lobe, left parietal lobe. -plan to continue asa and plavix for 21 days -plavix and atorvastatin after 21 days -goal BP <180/105 -IV labetalol 10mg q4hr prn -PT -speech therapy--passed -continue atorvastatin 80mg daily -sleep study outpatient -hypercoagulable workup for unexplained etiology -holter monitor outpatiet -SHEMAR tomorrow for assessment of PFO #HTN #Asthma #GERD #Electrolyte abnormalities Primary care team to manage above conditions and ongoing care needs. The patient's management plan was discussed with my attending physician Dr. Castellanos. Sarahi Null, PGY-2 Attending Provider Attestation/Addendum I personally have seen and examined the patient at the bedside and I agreed with resident's findings, assessment and plan of care. Echo positive for bubble study. There is evidence of PFO intracardiac shunt. EF 55-60%. MRI showed multiple embolic type acute infarcts including left occipital lobe, left temporal lobe, left parietal lobe. 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
--- NOTE | 2025-05-12 19:45 | PC.NURSE ---
Charge Nurse Mike states ok for daughter to spend the night as a caregiver
[2025-05-12] MEDS: ATORVASTATIN CALCIUM 20 MG TABLET 80 MG PO (20:17)
[2025-05-13] VITALS (24 sets, daily range): BP systolic 115–208; BP diastolic 35–108; PULSE 76–121; RESP 15–92; TEMP 35.9–36.9; O2SAT 91–97; BMI 41.0
[2025-05-13] MEDS: ACETAMINOPHEN 325 MG TABLET 650 MG PO ×2 (05:28→20:07)
[2025-05-13 06:10] LABS: Basophils # (Auto) 0.1 Thou/mm3 (0.0-0.2); Basophils % (Auto) 1 % (0-2.5); Eosinophils # (Auto) 0.2 Thou/mm3 (0.0-0.5); Eosinophils % (Auto) 2 % (0-10); Hematocrit 37.6 % (36.0-46.0); Hemoglobin 11.9 g/dL (12.0-16.0); Immature Granulocytes Auto 0.06 Thou/mm3 (0.00-0.00); Lymphocytes # (Auto) 2.0 Thou/mm3 (1.0-4.8); Lymphocytes % (Auto) 23 % (10-50); Mean Corpuscular HGB Conc 31.6 g/dl (31.0-37.0); Mean Corpuscular Hemoglobin 28.3 pg (25.0-35.0); Mean Corpuscular Volume 89 fL (80-100); Monocytes # (Auto) 0.9 Thou/mm3 (0.0-0.8); Monocytes % (Auto) 11 % (0-12); Neutrophils # (Auto) 5.5 Thou/mm3 (1.8-7.7); Neutrophils % (Auto) 63 % (37-80); Nucleated Red Blood Cell # 0.00 Thou/mm3 (0.00-0.00); Nucleated Red Blood Cell % 0 /100 WBC (0); Platelet Count 268 Thou/mm3 (140-440); RDW Standard Deviation 48.4 fL (36.4-46.3); Red Blood Count 4.21 Miln/mm3 (4.00-5.20); White Blood Count 8.7 Thou/mm3 (3.6-11.0)
[2025-05-13 06:36] LABS: Alanine Aminotransferase 10 U/L (10-49); Albumin, Serum 4.3 gm/dL (3.4-4.8); Albumin/Globulin Ratio 2.5 (1.2-2.2); Alkaline Phosphatase 93 U/L (46-116); Anion Gap 14 (7-16); Aspartate Amino Transferase 17 U/L (0-34); BUN/Creatinine Ratio 17 Ratio (12-20); Bilirubin,Total 0.8 mg/dL (0.3-1.2); Blood Urea Nitrogen 12 mg/dL (9-23); Calcium 9.1 mg/dL (8.3-10.6); Calcium (Corrected) 9.1 mg/dL (8.5-10.1); Carbon Dioxide 23.8 mMol/L (20.0-31.0); Chloride 104 mMol/L (98-107); Creatinine (Component) 0.7 mg/dL (0.6-1.3); Estimated Creatinine Clearance 88.3 mL/min (>60); Globulin 1.7 gm/dL (2.3-3.5); Glucose 113 mg/dL (74-106); Magnesium 2.0 mg/dL (1.6-2.6); Osmolality,Calculated 283 (275-295); Phosphorous 4.7 mg/dL (2.4-5.1); Potassium 4.0 mMol/L (3.4-5.1); Sodium 142 mMol/L (136-145); Total Protein 6.0 gm/dL (5.7-8.2); eGFR > 60 See Note
--- NOTE | 2025-05-13 08:30 | ECHO_ITS ---
Transesophageal Echo Report Ht (in): 62 Wt (lb): 232 Exam Location: [employer] [facility] Status: Inpatient [employer] Operator: Danae Mendoza Indications: Procedure Performed: BP: 135 / 79 HR: 121 Medications Versed 4 mg Fentanyl 50 mcg FINDINGS Left Ventricle Normal left ventricular size, wall thickness, systolic function with no obvious regional wall motion abnormalities. Normal left ventricular diastolic filling pattern for age. The ejection fraction is visually estimated at 65%. Right Ventricle The right ventricle is normal in size and systolic function. Left Atrium The left atrium is normal by two-dimensional, color flow and Doppler imaging with no structural abnormalities, no thrombus formation present. Right Atrium The right atrium is normal by two-dimensional imaging, color flow and Doppler imaging with no structural abnormalities, no thrombus formation present. Atrial Septum A patent foramen ovale is present with a lstyh-ef-[id number] shunt demonstrated by color flow Doppler interrogation and agitated saline. Aorta The aorta is normal by two-dimensional, color flow and Doppler interrogation. Mitral Valve The mitral valve is normal by two-dimensional, color flow and Doppler interrogation. Mild mitral regurgitation. Tricuspid Valve The tricuspid valve is normal by two-dimensional, color flow and Doppler interrogation. There is mild tricuspid valve regurgitation. Pulmonic Valve The pulmonic valve is not well visualized. There is no significant pulmonic valve regurgitation. Vessels The pulmonary artery appears normal. The inferior vena cava pulmonary and hepatic veins appear normal. Pericardium The pericardium is normal by two-dimensional imaging. There is no significant pericardial effusion. CONCLUSIONS Indication: CVA Bubble study positive for a large PFO with pruye-dz-[id number] shunt along with an atrial septal aneurysm [septal excursion distance of 15 mm] PFO length is around 25 mm and the PFO height is up to 1 cm. Left atrial appendage appears to be very small and could not visualize well and unable to rule out any kind of thrombus. Hyperdynamic LV function with normal LV size. Estimated EF around 70 to 75%. Mild LVOT obstruction noted with mild ZEE mostly secondary to sigmoid septal hypertrophy. Normal RV size and function. Mild MR and mild TR. Mildly dilated left atrium. Normal pulmonary vein pattern. Only minimal atherosclerotic disease noted in the aorta. Sedation: Versed 4.5 mg and Fentanyl 75 mcg Nikolay Anumandla (Electronically Signed) Final Date: 13 May 2025 21:29
[2025-05-13] MEDS: CLOPIDOGREL BISULFATE 75 MG TABLET PO (10:36)
[2025-05-13] MEDS: ASPIRIN EC 81 MG TABEC PO (10:36)
--- NOTE | 2025-05-13 11:12 | PD.RESPRO ---
Documentation for date of: 05/13/25 Subjective Subjective Interval history: Patient was seen and assessed at bedside. no new complaints, denies chest pain, shortness of breath, and palpitations. Blood pressure 138/98 this morning, heart rate in 70s to 80s. Potassium 4.0, magnesium 2.0, creatinine 0.7. Patient was n.p.o. after midnight, plan for SHEMAR today to evaluate PFO. Lipid panel and TSH were within normal limits. A1c slightly elevated 5.9. Patient is safe for discharge after SHEMAR. Exam Vital Signs Temp Pulse Resp BP Pulse Ox O2 Del Method 98.3 F 90 19 146/92 H 92 L Room Air 05/13/25 08:00 05/13/25 08:00 05/13/25 08:00 05/13/25 08:00 05/13/25 08:00 05/13/25 08:00 Narrative Exam Physical Exam General: Awake and in no acute distress. Conversational and non-toxic appearing. Pleasant Malawian speaking lady. Slurred speech. HEENT: Normocephalic, atraumatic, mucous membranes moist. Heart: Regular rate and rhythm, normal S1 and S2, no murmurs appreciated. Lungs: Clear to auscultation with no wheezing or crackles. Abdomen: Soft, nondistended, nontender, positive bowel sounds. No guarding or rebound tenderness. Neurologic: Alert and oriented x3, no gross neurological deficit, and patient able to move all 4 extremities. Extremities: No edema. Skin: No rash or ecchymoses. Objective Labs 05/13/25 05:00 05/13/25 05:00 Labs: Laboratory Results - last 24 hr 05/13/25 05:00 WBC 8.7 RBC 4.21 Hgb 11.9 L Hct 37.6 MCV 89 MCH 28.3 MCHC 31.6 RDW Std Deviation 48.4 H Plt Count 268 Neut % (Auto) 63 Lymph % (Auto) 23 [place] % (Auto) 11 Eos % (Auto) 2 Baso % (Auto) 1 Neut # (Auto) 5.5 Lymph # (Auto) 2.0 [place] # (Auto) 0.9 H Eos # (Auto) 0.2 Baso # (Auto) 0.1 Immature Gran # (Auto) 0.06 H Absolute Nucleated RBC 0.00 Immature Gran % 1 H Nucleated RBC % 0 Sodium 142 Potassium 4.0 Chloride 104 Carbon Dioxide 23.8 Anion Gap 14 BUN 12 Creatinine 0.7 Estim Creat Clear Calc 88.3 eGFR > 60 BUN/Creatinine Ratio 17 Glucose 113 H Calculated Osmolality 283 Calcium 9.1 Corrected Calcium 9.1 Phosphorus 4.7 Magnesium 2.0 Total Bilirubin 0.8 AST 17 ALT 10 Alkaline Phosphatase 93 Total Protein 6.0 Albumin 4.3 Globulin 1.7 L Albumin/Globulin Ratio 2.5 H Quality Measures Quality Measures VTE prophylaxis Advance care planning discussed with:: patient Assessment & Plan Assessment Current Active Medications: Generic Name Dose Route Start Last Admin Trade Name Freq PRN Reason Stop Dose Admin Acetaminophen 650 mg 05/10/25 15:26 05/13/25 05:28 Acetaminophen 325 Mg Tablet PO 06/09/25 15:25 650 mg Q6H PRN Administration Fever >100.5 or pain 1-3 Albuterol/Ipratropium 3 ml 05/10/25 15:31 Albuterol/Ipratropium (Duoneb) Rt Lizeth 3 Ml Nebu INH 06/09/25 18:59 Q6HRRT PRN Dyspnea Aspirin 81 mg 05/12/25 09:00 05/13/25 10:36 Aspirin Ec 81 Mg Tabec PO 06/11/25 08:59 81 mg QDAY RAZA Administration Atorvastatin Calcium 80 mg 05/12/25 21:00 05/12/25 20:17 Atorvastatin Calcium 20 Mg Tablet PO 06/11/25 20:59 80 mg HS RAZA Administration Clopidogrel Bisulfate 75 mg 05/12/25 09:00 05/13/25 10:36 Clopidogrel Bisulfate 75 Mg Tablet PO 06/11/25 08:59 75 mg QDAY RAZA Administration Labetalol HCl 10 mg 05/10/25 16:26 05/11/25 10:12 Labetalol Inj 5 Mg/Ml Vial 20 Ml IVP 10 mg [id number] PRN Administration SBP > 180 mmHg or DBP > 105 Ondansetron HCl 4 mg 05/10/25 15:26 Ondansetron Inj 2 Mg/Ml Inj 2 Ml IVP 06/09/25 15:25 Q6H PRN NAUSEA OR VOMITING Protocol Pantoprazole Sodium 40 mg 05/11/25 09:00 05/12/25 08:11 Pantoprazole Inj 40 Mg Vial IVP 06/10/25 08:59 40 mg QDAY RAZA Administration Plan Patient is a Malawian speaking 64 year old female with PMH of essential hypertension, hyperlipidemia, history of TIA previously with left facial droop which resolved, asthma, osteopenia, osteoporosis, GERD, history of H. pylori, chronic back pain, morbid obesity with a BMI greater than 40, osteoarthritis with knee replacement, mild chronic anemia, depression, questionable fibromyalgia, history of varicose veins status post ablation who presented on 05/10/25 for confusion, found to have multiple CVA of left parietal, frontal, and temporal lobes. Cardiology consulted for potential PFO closure. #CVA, multiple acute in left occipital lobe, left temporal lobe, left parietal lobe, s/p TNK #PFO on echocardiogram Presented with slurred speech, weakness, and confusion. S/p TNK 25 mg in ED as patient was within window. Significant improvement but continues to slur words with mild right lower facial droop. Also tends to ramble about subjects not pertaining to question. No known personal or family history of heart disease, ME, or arrhythmia. Positive family history of stroke (both parents). Prior TIA 10 years ago, presented with facial droop but resolved. Home medications include atorvastatin 20 mg daily and ASA 81 mg. BP 167/80 on admission, HR 82, saturating well on room air. Troponin negative. Lipid panel 05/11 showed trig 140, cholesterol 155, LDL 68, HDL 59. TSH 1.30, T4 5.4. A1c 5.9. EKG 05/10/25 and 05/11 showed sinus rhythm with no ST or T wave abnormalities. No arrhythmias noted on telemetry. Echo 05/10/25 showed Positive bubble study. Agitated saline contrast was performed, with evidence of PFO intra-cardiac shunt. Normal left ventricular size and function. Approximate ejection fraction is 55-60%. Trace mitral and trace tricuspid regurgitation Score: ASCVD score: 11.4% risk of cardiovascular event in next 10 years, recommend moderate to high intensity statin ROPE score 4 Plan: - NPO overnight. SHEMAR planned for today which showed moderately sized PFO that will need closure. - Based on her ROPE score, will need complete evaluation for etiology of the stroke. Will continue complete stroke including hypercoagulable workup, long-term Holter monitoring to rule out any kind of occult atrial fibrillation and rule out any kind of atherosclerotic aortic disease before any intervention can be performed on the PFO. - Neurology following and further treatment of the stroke as per the neurology. - On ASA 81 mg, Plavix 75 mg daily, atorvastatin 80 mg daily #HTN - Permissive HTN <185/110 after 24-48 hours - Restart amlodipine 10 mg if becomes hypertensive, keep BP <130/80 #HLD - atorvastatin as above #Prediabetic #Hx asthma #Hx GERD #Hypokalemia, resolved #Normocytic anemia Thank you for your consultation, please do not hesitate to reach out if you have any question or concern Patient plan of care was discussed with the attending physician, Dr. Velasquez. Erika Jones, PGY-1 Attending Provider Attestation/Addendum I have personally seen and examined the patient separately on the above date of service and discussed the plan of care with the resident. I reviewed the resident Dr. Erika Jones consultation progress note and agree with the resident findings and plan in the note above and have also edited the documentation to reflect my findings and plan. Nikolay Velasquez M.D. Interventional Cardiology
[2025-05-13] MEDS: BENZOCAINE 20% (Hurricaine) SPRAY 1 DOSE TOP (11:21)
[2025-05-13] MEDS: MIDAZOLAM INJ 1 MG/ML VIAL 2 ML 4.5 MG IVP (11:22)
[2025-05-13] MEDS: fentaNYL CIT INJ 50 mCg/ML AMP 2ML IVP (11:23)
[2025-05-13] MEDS: ONDANSETRON INJ 2 MG/ML INJ 2 ML 4 MG IVP (12:10)
--- NOTE | 2025-05-13 15:18 | ESPR_ITS ---
<Statement entered by Woody Morgan MD - 05/17/25 08:36> I reviewed above note and agree with findings and plans. I have also personally examined the patient with medicine team and went over assessment and plan with medical team including video editing internship and resident physician. Documentation for date of: 05/13/25 Subjective Subjective Interval history: Patient seen at bedside. No acute overnight events. Patient denies any chest pain, shortness of breath, abdominal pain, nausea, vomiting, dizziness. Patient's vitals and labs were reviewed. SHEMAR performed today. Waiting on Cardio and Neuro recs. Exam Vital Signs Temp Pulse Resp BP Pulse Ox O2 Del Method O2 Flow Rate 98.2 F 94 18 151/84 H 95 Room Air 2 05/13/25 13:14 05/13/25 13:14 05/13/25 13:14 05/13/25 13:14 05/13/25 13:14 05/13/25 13:14 05/13/25 11:47 Narrative Exam General: No acute distress; A&Ox3; Estonian speaking Skin: Bilateral lower extremity scars on knees from previous surgery; bilateral lower extremity varicose veins (L side bandaged); warm, dry, no obvious rash. HEENT: NCAT, EOMI/PERRL, not icteric. External ears normal. No rhinorrhea. Moist mucous membranes Cardiovascular: Regular rate and rhythm, no murmur, +S1/S2. Respiratory: Mild R sided wheezes, lungs clear otherwise GI: Soft, mild epigastric tenderness, non-distended. No guarding or rebound tenderness. : No suprapubic tenderness. No flank tenderness bilaterally. Extremities: 1+ pitting edema, no cyanosis, no clubbing. Extremity pulses present Neuro: Mild slurring of speech. Grossly nonfocal. Moving all 4 extremities. Sensation equal, intact. Strenth equal, intact. Psychiatric: Cooperative, appropriate affect. Objective Labs 05/13/25 05:00 05/13/25 05:00 Labs: Laboratory Results - last 24 hr 05/13/25 05:00 WBC 8.7 RBC 4.21 Hgb 11.9 L Hct 37.6 MCV 89 MCH 28.3 MCHC 31.6 RDW Std Deviation 48.4 H Plt Count 268 Neut % (Auto) 63 Lymph % (Auto) 23 [place] % (Auto) 11 Eos % (Auto) 2 Baso % (Auto) 1 Neut # (Auto) 5.5 Lymph # (Auto) 2.0 [place] # (Auto) 0.9 H Eos # (Auto) 0.2 Baso # (Auto) 0.1 Immature Gran # (Auto) 0.06 H Absolute Nucleated RBC 0.00 Immature Gran % 1 H Nucleated RBC % 0 Sodium 142 Potassium 4.0 Chloride 104 Carbon Dioxide 23.8 Anion Gap 14 BUN 12 Creatinine 0.7 Estim Creat Clear Calc 88.3 eGFR > 60 BUN/Creatinine Ratio 17 Glucose 113 H Calculated Osmolality 283 Calcium 9.1 Corrected Calcium 9.1 Phosphorus 4.7 Magnesium 2.0 Total Bilirubin 0.8 AST 17 ALT 10 Alkaline Phosphatase 93 Total Protein 6.0 Albumin 4.3 Globulin 1.7 L Albumin/Globulin Ratio 2.5 H Quality Measures Quality Measures VTE prophylaxis Advance care planning discussed with:: patient Assessment & Plan Assessment Current Active Medications: Generic Name Dose Route Start Last Admin Trade Name Freq PRN Reason Stop Dose Admin Acetaminophen 650 mg 05/10/25 15:26 05/13/25 05:28 Acetaminophen 325 Mg Tablet PO 06/09/25 15:25 650 mg Q6H PRN Administration Fever >100.5 or pain 1-3 Albuterol/Ipratropium 3 ml 05/10/25 15:31 Albuterol/Ipratropium (Duoneb) Rt Lizeth 3 Ml Nebu INH 06/09/25 18:59 Q6HRRT PRN Dyspnea Aspirin 81 mg 05/12/25 09:00 05/13/25 10:36 Aspirin Ec 81 Mg Tabec PO 06/11/25 08:59 81 mg QDAY RAZA Administration Atorvastatin Calcium 80 mg 05/12/25 21:00 05/12/25 20:17 Atorvastatin Calcium 20 Mg Tablet PO 06/11/25 20:59 80 mg HS RAZA Administration Clopidogrel Bisulfate 75 mg 05/12/25 09:00 05/13/25 10:36 Clopidogrel Bisulfate 75 Mg Tablet PO 06/11/25 08:59 75 mg QDAY RAZA Administration Labetalol HCl 10 mg 05/10/25 16:26 05/11/25 10:12 Labetalol Inj 5 Mg/Ml Vial 20 Ml IVP 10 mg [id number] PRN Administration SBP > 180 mmHg or DBP > 105 Ondansetron HCl 4 mg 10/20/25 15:26 Ondansetron Inj 2 Mg/Ml Inj 2 Ml IVP 06/09/25 15:25 Q6H PRN NAUSEA OR VOMITING Protocol Pantoprazole Sodium 40 mg 05/11/25 09:00 05/13/25 13:07 Pantoprazole Inj 40 Mg Vial IVP 06/10/25 08:59 Not Given QDAY RAZA Plan 64-year-old female with past medical history significant for hypertension, hyperlipidemia, reported prior TIA, asthma, osteopenia, GERD presented to the ED with chief complaint of weakness and confusion. Patient was admitted to ICU for management of stroke s/p TNK. #Embolic Stroke in left occipital lobe, left temporal lobe, and left parietal lobe Initially presented to the ED with confusion, weakness, and slurred speech. NIHSS score was 4 at presentation. She received 25 mg of TNK in the ED and showed significant improvement in symptoms afterward. CT head (05/11) negative for any hemorrhagic findings. Labs: A1c: 5.9 TSH: 1.3 T Cholesterol: 155 LDL: 68 HDL: 59 Patient is on aspirin 81 mg and atorvastatin 20 mg daily, compliant since her TIA approximately 10 years ago. Denies smoking or drinking history. Echo 05/11: Positive for bubble study, demonstrating a PFO intracardiac shunt. EF 55-60%. MRI 05/11: Revealed multiple embolic-type acute infarcts, including in the left occipital lobe, left temporal lobe, and left parietal lobe. Plan: - Cardio consulted, Dr. Velasquez to perform SHEMAR today - Aspirin 81 mg, Plavix 75 mg daily and Atorvastatin 80 mg daily. - Goal BP: <180/105 - Administer IV labetalol 10 mg q4hr prn for BP control. - PT to address any motor deficits. - Speech Therapy to address speech and language deficits. - Sleep Study: Outpatient, to assess for sleep apnea or other contributing factors. - Hypercoagulable Workup: To investigate unexplained etiology of the stroke. - Holter Monitor: Outpatient, to assess for any arrhythmias that may have contributed to the embolic event. #HTN -Permissive HTN <180/105 s/p TNK -Labetalol 10 mg IV PRN for elevated BP #Hx of Asthma -Duonebs PRN #Hx of GERD -Protonix 40 mg IV qday #hypokalemia, resolved #Normocytic Anemia Hgb 11.2 on admission, stable Patient was reported to have transient bleed from varicose vein No longer bleeding now or any other signs or symptoms of bleeding Rx: -Will monitor for signs of bleeding, will trend hgb labs. Health Maintenance: Diet: cardiac GI prophylaxis: Protonix 40mg daily DVT prophylaxis: SCDs Antibiotics: NONE CODE STATUS: FULL Disposition: TELE Case discussed with my attending Dr. Morgan, and senior resident, Dr. Oni Painting MD PGY-1
[2025-05-13] MEDS: ATORVASTATIN CALCIUM 20 MG TABLET 80 MG PO (20:07)
--- NOTE | 2025-05-13 20:32 | PD.RESPRO ---
Documentation for date of: 05/13/25 Subjective Subjective Interval history: Patient examined at bedside. Patient examined at bedside. Vitals stable, labs unremarkable. Has no major complaints, strength 5 out of 5 in all 4 extremities, no new focal neurodeficits noted on exam. Speech is improving daily. Underwent SHEMAR today which confirmed PFO. Pending recommendations if closure is indicated for patient. Continue aspirin, Plavix, atorvastatin for embolic stroke. Exam Vital Signs Temp Pulse Resp BP Pulse Ox O2 Del Method O2 Flow Rate 96.8 F 100 20 156/98 H 95 Room Air 2 05/13/25 17:00 05/13/25 19:41 05/13/25 19:41 05/13/25 17:00 05/13/25 19:41 05/13/25 17:00 05/13/25 11:47 Narrative Exam General: elderly female, obese, No acute distress, cooperative HEENT: NCAT, No JVD noted. Mucosa moist. Pupils are equal and reactive to light bilaterally Cardiovascular: Normal S1 and S2. Regular rate and rhythm. Respiratory: Lungs are clear to auscultation bilaterally. No wheezing or crackles heard. Abdomen: Soft, nontender, not distended, normal bowel sounds. Skin: Warm to touch, dry, no rashes noted Musculoskeletal: No gross injuries. Able to move all 4 extremities. No pitting edema Neuro: Alert and oriented x3. Cranial nerves: II through XII grossly intact. Speech and language: dsyarthria improving, no dysphagia. Motor system: Tone and bulk: Normal: Strength: 5 out of 5 in all 4 extremities; No pronator drift noted. Plantar reflex: Downgoing bilaterally. Sensory system: Intact to all modalities of sensation bilaterally. Coordination: Intact to [id number] test. No ataxia, no dysmetria, or dysdiadochokinesia noted. No intention tremors noted. Gait: Not tested. No signs of meningeal irritation noted. Psych: Normal affect and mood Objective Labs 05/14/25 05:52 05/14/25 05:52 Labs: Laboratory Results - last 24 hr 05/13/25 05:00 WBC 8.7 RBC 4.21 Hgb 11.9 L Hct 37.6 MCV 89 MCH 28.3 MCHC 31.6 RDW Std Deviation 48.4 H Plt Count 268 Neut % (Auto) 63 Lymph % (Auto) 23 [place] % (Auto) 11 Eos % (Auto) 2 Baso % (Auto) 1 Neut # (Auto) 5.5 Lymph # (Auto) 2.0 [place] # (Auto) 0.9 H Eos # (Auto) 0.2 Baso # (Auto) 0.1 Immature Gran # (Auto) 0.06 H Absolute Nucleated RBC 0.00 Immature Gran % 1 H Nucleated RBC % 0 Sodium 142 Potassium 4.0 Chloride 104 Carbon Dioxide 23.8 Anion Gap 14 BUN 12 Creatinine 0.7 Estim Creat Clear Calc 88.3 eGFR > 60 BUN/Creatinine Ratio 17 Glucose 113 H Calculated Osmolality 283 Calcium 9.1 Corrected Calcium 9.1 Phosphorus 4.7 Magnesium 2.0 Total Bilirubin 0.8 AST 17 ALT 10 Alkaline Phosphatase 93 Total Protein 6.0 Albumin 4.3 Globulin 1.7 L Albumin/Globulin Ratio 2.5 H Quality Measures Quality Measures VTE prophylaxis Advance care planning discussed with:: patient Assessment & Plan Assessment Current Active Medications: Generic Name Dose Route Start Last Admin Trade Name Freq PRN Reason Stop Dose Admin Acetaminophen 650 mg 05/10/25 15:26 05/13/25 20:07 Acetaminophen 325 Mg Tablet PO 06/09/25 15:25 650 mg Q6H PRN Administration Fever >100.5 or pain 1-3 Albuterol/Ipratropium 3 ml 05/10/25 15:31 Albuterol/Ipratropium (Duoneb) Rt Lizteh 3 Ml Nebu INH 06/09/25 18:59 Q6HRRT PRN Dyspnea Aspirin 81 mg 05/12/25 09:00 05/13/25 10:36 Aspirin Ec 81 Mg Tabec PO 06/11/25 08:59 81 mg QDAY RAZA Administration Atorvastatin Calcium 80 mg 05/12/25 21:00 05/13/25 20:07 Atorvastatin Calcium 20 Mg Tablet PO 06/11/25 20:59 80 mg HS RAZA Administration Clopidogrel Bisulfate 75 mg 05/12/25 09:00 05/13/25 10:36 Clopidogrel Bisulfate 75 Mg Tablet PO 06/11/25 08:59 75 mg QDAY RAZA Administration Labetalol HCl 10 mg 05/10/25 16:26 05/11/25 10:12 Labetalol Inj 5 Mg/Ml Vial 20 Ml IVP 10 mg [id number] PRN Administration SBP > 180 mmHg or DBP > 105 Ondansetron HCl 4 mg 05/10/25 15:26 Ondansetron Inj 2 Mg/Ml Inj 2 Ml IVP 06/09/25 15:25 Q6H PRN NAUSEA OR VOMITING Protocol Pantoprazole Sodium 40 mg 05/11/25 09:00 05/13/25 13:07 Pantoprazole Inj 40 Mg Vial IVP 06/10/25 08:59 Not Given QDAY RAZA Plan Patient is a 64-year-old female with past medical history significant for hypertension, hyperlipidemia, reported prior TIA (facial droop, resolved), asthma, osteopenia, gerd presented to the ED with chief complaint of weakness and confusion. She is in ICU s/p TNK. Neurology consutled for management. #embolic stroke Left occipital lobe, left temporal lobe, left parietal lobe s/p TNK #PFO s/p SHEMAR Initially presented to ED with confusion, weakness, slurred speech. NIHSS score was 4. She received 25 mg of TNK while in the ED. Appeared to have significant improvement of symptoms after administration. Currently in ICU for hourly neurochecks. CT head from this morning negative for any hemorrhagic findings. A1c 5.9, TSH 1.3, TG 140, cholesterol 155, LDL 68, HDL 59. Daughter confirms that patient takes aspirin 81 mg and atorvastatin 20 mg daily since her TIA about 10 years ago. She is compliant with medication. Denies any smoking or drinking history. Echo positive for bubble study. There is evidence of PFO intracardiac shunt. EF 55-60%. MRI showed multiple embolic type acute infarcts including left occipital lobe, left temporal lobe, left parietal lobe. -final cardio recs for pfo mgmt -plan to continue asa and plavix for 21 days -plavix and atorvastatin after 21 days -goal BP <180/105 -IV labetalol 10mg q4hr prn -PT -speech therapy--passed -continue atorvastatin 80mg daily -sleep study outpatient -hypercoagulable workup for unexplained etiology -holter monitor outpatiet #HTN #Asthma #GERD #Electrolyte abnormalities Primary care team to manage above conditions and ongoing care needs. The patient's management plan was discussed with my attending physician Dr. Castellanos. Sarahi Null, PGY-2 Attending Provider Attestation/Addendum I personally have seen and examined the patient at the bedside and I agreed with resident's findings, assessment and plan of care. Echo positive for bubble study. There is evidence of PFO intracardiac shunt. EF 55-60%. MRI showed multiple embolic type acute infarcts including left occipital lobe, left temporal lobe, left parietal lobe. -continue asa and plavix for 21 days -plavix and atorvastatin after 21 days FU with hypercoagulopathy panel, intermediate holter for occult a fib, SHEMAR results.
[2025-05-14] VITALS: PULSE 89
[2025-05-14 04:00] VITALS: BP 130/89; PULSE 92; RESP 19; TEMP 36.1; O2SAT 91
[2025-05-14 06:20] LABS: Basophils # (Auto) 0.1 Thou/mm3 (0.0-0.2); Basophils % (Auto) 1 % (0-2.5); Eosinophils # (Auto) 0.3 Thou/mm3 (0.0-0.5); Eosinophils % (Auto) 3 % (0-10); Hematocrit 36.0 % (36.0-46.0); Hemoglobin 11.3 g/dL (12.0-16.0); Immature Granulocytes Auto 0.07 Thou/mm3 (0.00-0.00); Lymphocytes # (Auto) 1.8 Thou/mm3 (1.0-4.8); Lymphocytes % (Auto) 23 % (10-50); Mean Corpuscular HGB Conc 31.4 g/dl (31.0-37.0); Mean Corpuscular Hemoglobin 28.4 pg (25.0-35.0); Mean Corpuscular Volume 91 fL (80-100); Monocytes # (Auto) 1.1 Thou/mm3 (0.0-0.8); Monocytes % (Auto) 14 % (0-12); Neutrophils # (Auto) 4.5 Thou/mm3 (1.8-7.7); Neutrophils % (Auto) 58 % (37-80); Nucleated Red Blood Cell # 0.00 Thou/mm3 (0.00-0.00); Nucleated Red Blood Cell % 0 /100 WBC (0); Platelet Count 235 Thou/mm3 (140-440); RDW Standard Deviation 48.7 fL (36.4-46.3); Red Blood Count 3.98 Miln/mm3 (4.00-5.20); White Blood Count 7.8 Thou/mm3 (3.6-11.0)
[2025-05-14 06:48] LABS: Alanine Aminotransferase 8 U/L (10-49); Albumin, Serum 4.2 gm/dL (3.4-4.8); Albumin/Globulin Ratio 2.3 (1.2-2.2); Alkaline Phosphatase 87 U/L (46-116); Anion Gap 11 (7-16); Aspartate Amino Transferase 14 U/L (0-34); BUN/Creatinine Ratio 13 Ratio (12-20); Bilirubin,Total 0.8 mg/dL (0.3-1.2); Blood Urea Nitrogen 10 mg/dL (9-23); Calcium 9.1 mg/dL (8.3-10.6); Calcium (Corrected) 9.1 mg/dL (8.5-10.1); Carbon Dioxide 25.1 mMol/L (20.0-31.0); Chloride 106 mMol/L (98-107); Creatinine (Component) 0.8 mg/dL (0.6-1.3); Estimated Creatinine Clearance 77.3 mL/min (>60); Globulin 1.8 gm/dL (2.3-3.5); Glucose 128 mg/dL (74-106); Magnesium 2.0 mg/dL (1.6-2.6); Osmolality,Calculated 284 (275-295); Phosphorous 5.9 mg/dL (2.4-5.1); Potassium 3.8 mMol/L (3.4-5.1); Sodium 142 mMol/L (136-145); Total Protein 6.0 gm/dL (5.7-8.2); eGFR > 60 See Note
--- NOTE | 2025-05-14 07:37 | PD.RESPRO ---
Documentation for date of: 05/14/25 Subjective Subjective Interval history: Patient seen and assessed at bedside. Patient was in sinus tachycardia overnight, heart rate up to 110s. Reports sciatic pain overnight, improved with pain medication. Denies any chest pain, shortness of breath, palpitations. BP 130/89, systolics in 140s to 150s. Potassium 3.8, magnesium 2.0. Replete potassium to keep above 4. Echo with bubble study below, patient has a large PFO that will require closure at a later time. EF 70 to 75%. Recommend continuing atorvastatin 80 mg nightly, clopidogrel 75 mg daily and aspirin 81 mg daily. Discussed echo results with patient and her daugther. Will need further outpatient work up and referral to pharmaceutical process engineer for PFO closure. Exam Vital Signs Temp Pulse Resp BP Pulse Ox O2 Del Method O2 Flow Rate 97.0 F 92 19 130/89 H 91 L Room Air 2 05/14/25 04:00 05/14/25 04:00 05/14/25 04:00 05/14/25 04:00 05/14/25 04:00 05/14/25 04:00 05/13/25 11:47 Narrative Exam Physical Exam General: Awake and in no acute distress. Conversational and non-toxic appearing. Pleasant Mong[place]ian speaking lady. Slurred speech. HEENT: Normocephalic, atraumatic, mucous membranes moist. Heart: Regular rate and rhythm, normal S1 and S2, no murmurs appreciated. Lungs: Clear to auscultation with no wheezing or crackles. Abdomen: Soft, nondistended, nontender, positive bowel sounds. No guarding or rebound tenderness. Neurologic: Alert and oriented x3, no gross neurological deficit, and patient able to move all 4 extremities. Extremities: No edema. Skin: No rash or ecchymoses. Objective Labs 05/14/25 05:52 05/14/25 05:52 Labs: Laboratory Results - last 24 hr 05/14/25 05:52 WBC 7.8 RBC 3.98 L Hgb 11.3 L Hct 36.0 MCV 91 MCH 28.4 MCHC 31.4 RDW Std Deviation 48.7 H Plt Count 235 D Neut % (Auto) 58 Lymph % (Auto) 23 [place] % (Auto) 14 H Eos % (Auto) 3 Baso % (Auto) 1 Neut # (Auto) 4.5 Lymph # (Auto) 1.8 [place] # (Auto) 1.1 H Eos # (Auto) 0.3 Baso # (Auto) 0.1 Immature Gran # (Auto) 0.07 H Absolute Nucleated RBC 0.00 Immature Gran % 1 H Nucleated RBC % 0 Sodium 142 Potassium 3.8 Chloride 106 Carbon Dioxide 25.1 Anion Gap 11 BUN 10 Creatinine 0.8 Estim Creat Clear Calc 77.3 eGFR > 60 BUN/Creatinine Ratio 13 Glucose 128 H Calculated Osmolality 284 Calcium 9.1 Corrected Calcium 9.1 Phosphorus 5.9 H Magnesium 2.0 Total Bilirubin 0.8 AST 14 ALT 8 L Alkaline Phosphatase 87 Total Protein 6.0 Albumin 4.2 Globulin 1.8 L Albumin/Globulin Ratio 2.3 H Quality Measures Quality Measures VTE prophylaxis Advance care planning discussed with:: patient Assessment & Plan Assessment Current Active Medications: Generic Name Dose Route Start Last Admin Trade Name Freq PRN Reason Stop Dose Admin Acetaminophen 650 mg 05/10/25 15:26 05/13/25 20:07 Acetaminophen 325 Mg Tablet PO 06/09/25 15:25 650 mg Q6H PRN Administration Fever >100.5 or pain 1-3 Albuterol/Ipratropium 3 ml 05/10/25 15:31 Albuterol/Ipratropium (Duoneb) Rt Lizeth 3 Ml Nebu INH 06/09/25 18:59 Q6HRRT PRN Dyspnea Aspirin 81 mg 05/12/25 09:00 05/13/25 10:36 Aspirin Ec 81 Mg Tabec PO 06/11/25 08:59 81 mg QDAY RAZA Administration Atorvastatin Calcium 80 mg 05/12/25 21:00 05/13/25 20:07 Atorvastatin Calcium 20 Mg Tablet PO 06/11/25 20:59 80 mg HS RAZA Administration Clopidogrel Bisulfate 75 mg 05/12/25 09:00 05/13/25 10:36 Clopidogrel Bisulfate 75 Mg Tablet PO 06/11/25 08:59 75 mg QDAY RAZA Administration Labetalol HCl 10 mg 05/10/25 16:26 05/11/25 10:12 Labetalol Inj 5 Mg/Ml Vial 20 Ml IVP 10 mg [id number] PRN Administration SBP > 180 mmHg or DBP > 105 Ondansetron HCl 4 mg 05/10/25 15:26 Ondansetron Inj 2 Mg/Ml Inj 2 Ml IVP 11/19/25 15:25 Q6H PRN NAUSEA OR VOMITING Protocol Pantoprazole Sodium 40 mg 05/11/25 09:00 05/13/25 13:07 Pantoprazole Inj 40 Mg Vial IVP 06/10/25 08:59 Not Given QDAY RAZA Plan Patient is a Mongolian speaking 64 year old female with PMH of essential hypertension, hyperlipidemia, history of TIA previously with left facial droop which resolved, asthma, osteopenia, osteoporosis, GERD, history of H. pylori, chronic back pain, morbid obesity with a BMI greater than 40, osteoarthritis with knee replacement, mild chronic anemia, depression, questionable fibromyalgia, history of varicose veins status post ablation who presented on 05/10/25 for confusion, found to have multiple CVA of left parietal, frontal, and temporal lobes. Cardiology consulted for potential PFO closure. #CVA, multiple acute in left occipital lobe, left temporal lobe, left parietal lobe, s/p TNK #PFO on echocardiogram Presented with slurred speech, weakness, and confusion. S/p TNK 25 mg in ED as patient was within window. Significant improvement but continues to slur words with mild right lower facial droop. Also tends to ramble about subjects not pertaining to question. No known personal or family history of heart disease, VA, or arrhythmia. Positive family history of stroke (both parents). Prior TIA 10 years ago, presented with facial droop but resolved. Home medications include atorvastatin 20 mg daily and ASA 81 mg. BP 167/80 on admission, HR 82, saturating well on room air. Troponin negative. Lipid panel 05/11 showed trig 140, cholesterol 155, LDL 68, HDL 59. TSH 1.30, T4 5.4. A1c 5.9. EKG 05/10/25 and 05/11 showed sinus rhythm with no ST or T wave abnormalities. No arrhythmias noted on telemetry. Echo 05/10/25 showed Positive bubble study. Agitated saline contrast was performed, with evidence of PFO intra-cardiac shunt. Normal left ventricular size and function. Approximate ejection fraction is 55-60%. Trace mitral and trace tricuspid regurgitation SHEMAR 05/13/25 bubble study positive for a large PFO with [id number] shunt along with an atrial septal aneurysm, [septal excursion distance of 15 mm] PFO length is around 25 mm and the PFO height is up to 1 cm. Left atrial appendage appears to be very small and could not visualize well and unable to rule out any kind of thrombus. Hyperdynamic LV function with normal LV size. Estimated EF around 70 to 75%. Mild LVOT obstruction noted with mild ZEE mostly secondary to sigmoid septal hypertrophy. Normal RV size and function. Mild MR and mild TR. Mildly dilated left atrium. Normal pulmonary vein pattern. Only minimal atherosclerotic disease noted in the aorta. Score: ASCVD score: 11.4% risk of cardiovascular event in next 10 years, recommend moderate to high intensity statin ROPE score 4 Plan: - Based on her ROPE score, will need complete evaluation for etiology of the stroke. Will continue complete stroke including hypercoagulable workup, long-term Holter monitoring to rule out any kind of occult atrial fibrillation and rule out any kind of atherosclerotic aortic disease before any intervention can be performed on the PFO. - Will need referral to pharmaceutical process engineer who can perform PFO closure - Neurology following and further treatment of the stroke as per the neurology. - On ASA 81 mg, Plavix 75 mg daily, atorvastatin 80 mg daily #HTN - Permissive HTN <185/110 after 24-48 hours - Continue amlodipine 10 mg if becomes hypertensive, keep BP <130/80 - Recommend patient monitor blood pressure at home #HLD - Atorvastatin as above #Prediabetic #Hx asthma #Hx GERD #Hypokalemia, resolved #Normocytic anemia Thank you for your consultation, please do not hesitate to reach out if you have any question or concern Patient plan of care was discussed with the attending physician, Dr. Velasquez. Erika Jones, PGY-1 Attending Provider Attestation/Addendum I have personally seen and examined the patient separately on the above date of service and discussed the plan of care with the resident. I reviewed the resident Dr. Erika Jones consultation progress note and agree with the resident findings and plan in the note above and have also edited the documentation to reflect my findings and plan. Nikolay Velasquez M.D. Interventional Cardiology
[2025-05-14 07:58] VITALS: PULSE 84; RESP 18; O2SAT 96
[2025-05-14 08:00] VITALS: BP 122/85; PULSE 105; PULSE 98; RESP 23; TEMP 36.8; O2SAT 93
[2025-05-14] MEDS: CLOPIDOGREL BISULFATE 75 MG TABLET PO (08:15)
[2025-05-14] MEDS: ASPIRIN EC 81 MG TABEC PO (08:16)
--- NOTE | 2025-05-14 09:05 | PC.SS ---
Follow up note: Pt is d/c home today with HH for speech therapy.
--- NOTE | 2025-05-14 10:26 | CHAP ---
Patient sleeping. Silent prayer was said.
[2025-05-14 12:00] VITALS: BP 139/80; PULSE 103; PULSE 88; RESP 24; TEMP 36.8; O2SAT 96
[2025-05-14] MEDS: ACETAMINOPHEN 325 MG TABLET 650 MG PO (12:44)
--- NOTE | 2025-05-14 12:49 | PC.SS ---
SS met with pt and daughters at bedside (per nurseRobel's request). Pt is requesting a front wheel walker and commode. Pt and daughters are aware DME requires to be ordered and insurance authorization (if approved) requires to be obtained. SS verbal explained for place to purchase DME, ex. [employer] stores or online if required. SS has sent DME order using [employer]. Daughters will provide transportation home.
--- NOTE | 2025-05-14 13:14 | ESDS_ITS ---
<Statement entered by Woody Morgan MD - 05/17/25 15:24> I reviewed above note and agree with findings and plans. I have also personally examined the patient with medicine team and went over assessment and plan with medical team including information technology intern and resident physician. Planned Discharge Date 05/14/25 DS: Providers Provider Date of admission: 05/10/25 15:56 Primary care physician: Physician No Primary/Family Admitting Provider: Champ Horta MD Attending Provider on Admission: Woody Morgan MD Consults: 05/10/25 13:08 Consult to Neurology / Tele-Neurology Routine Comment: Consulting Provider: [facility] 05/10/25 15:34 Referral Physical Therapy Stat Comment: stroke s/p tnk Physician Instructions: Referral Speech Therapy Stat Comment: stroke s/p tnk 05/10/25 16:59 Consult to Neurology / Tele-Neurology Routine Comment: Consulting Provider: Juancarlos Castellanos 05/11/25 19:56 Consult to Cardiology Urgent Comment: consult for possible SHEMAR Consulting Provider: Nikolay Velasquez Attending Provider on DC: Morris Bunn MD Discharging Provider: Morris Bunn MD DS: Diagnosis Problem List Completed Was Problem List Reviewed/Reconciled?: Yes Hospital Course Hospital Course Hospital course: 64-year-old female with past medical history of hypertension, hyperlipidemia prior TIA, asthma, osteopenia and GERD presented to the ED on 05/10 with weakness and confusion. In the ED, patient's vitals were significant for hypertension with labs showing hemoglobin of 11.2. Imaging studies including ch est x-ray showed moderate vascular congestion, CT head was negative for any acute process and head and neck CTA was negative for any LVO. EKG showed sinus rhythm. In the ED teleneuro was consulted and stroke alert was initiated and the patient was given TNK 25 mg x 1. Patient was admitted to the ICU for stroke status post TNK infusion. In-house neurology was also consulted and ordered MRI which showed multiple embolic type acute infarcts including the left occipital lobe, left temporal lobe and left parietal lobe. Echo was positive for bubble study as there was some evidence of PFO decision was made to obtain a SHEMAR. SHEMAR which was completed on 05/13 showed a large PFO with [id number] shunt along with atrial septal aneurysm, PFO length was around 25 mm PFO-is up to 1 cm. Left atrial appendage could not be visualized well; thus, thrombus was not ruled out. Patient symptomatically improved however continues to have some degree of dysarthria. Patient will be discharged with the following strict instructions. Please take atorvastatin 80 mg by mouth at night and Plavix 75 mg by mouth daily along with aspirin 81 mg by mouth daily for ischemic stroke Continue all other home medications as prescribed Please follow-up with cardiology, Dr. Velasquez, for long-term Holter monitoring Ask your PCP to refer you to a cardiothoracic surgeon for PFO closure Ask your PCP to order a CT or MR venogram to be completed to detect DVT in higher veins, including the iliac and inferior vena cava (IVC) Ask your PCP to refer you for a sleep study Ask your PCP to follow-up on hypercoagulable studies ordered at the hospital Please follow-up with neurology, Dr. Castellanos, for history of stroke and close monitoring Please follow-up with your PCP within 1 week of discharge or follow-up at the [facility] [address] [place] [address] If your symptoms worsen or if you develop new chest pain, shortness of breath, severe headache or dizziness - please come back to the ED immediately Hospital Diagnosis: #Embolic Stroke in left occipital lobe, left temporal lobe, and left parietal lobe #Patent PFO on transthoracic and transesophageal echocardiogram #Hypertension #Hyperlipidemia #Morbid obesity #Normocytic anemia Morris Bunn DO PGY-2 Internal Medicine - GME Status at Discharge Overall status at discharge: patient is progressing back to baseline Time Spent with Patient Time attestation: Total time spent providing and/or coordinating discharge services: 45 minutes Time spent: Greater than 30 minutes Exam Vital Signs Temp Pulse Resp BP Pulse Ox O2 Del Method O2 Flow Rate 98.3 F 103 H 24 H 139/80 H 96 Room Air 2 05/14/25 12:00 05/14/25 12:00 05/14/25 12:00 05/14/25 12:00 05/14/25 12:00 05/14/25 12:00 05/13/25 11:47 Narrative Exam General: No acute distress; A&Ox3; [place] speaking Skin: Bilateral lower extremity scars on knees from previous surgery; bilateral lower extremity varicose veins (L side bandaged); warm, dry, no obvious rash. HEENT: NCAT, EOMI/PERRL, not icteric. External ears normal. No rhinorrhea. Moist mucous membranes Cardiovascular: Regular rate and rhythm, no murmur, +S1/S2. Respiratory: Mild R sided wheezes, lungs clear otherwise GI: Soft, mild epigastric tenderness, non-distended. No guarding or rebound tenderness. : No suprapubic tenderness. No flank tenderness bilaterally. Extremities: 1+ pitting edema, no cyanosis, no clubbing. Extremity pulses present Neuro: Mild slurring of speech. Grossly nonfocal. Moving all 4 extremities. Sensation equal, intact. Strenth equal, intact. Psychiatric: Cooperative, appropriate affect. Discharge Plan Plan Patient Disposition: HOME (Self Care) Care Plan Goals: Please take atorvastatin 80 mg by mouth at night and Plavix 75 mg by mouth daily along with aspirin 81 mg by mouth daily for ischemic stroke Continue all other home medications as prescribed Please follow-up with cardiology, Dr. Velasquez, for long-term Holter monitoring Ask your PCP to refer you to a cardiothoracic surgeon for PFO closure Ask your PCP to order a CT or MR venogram to be completed to detect DVT in higher veins, including the iliac and inferior vena cava (IVC) Ask your PCP to refer you for a sleep study Ask your PCP to follow-up on hypercoagulable studies ordered at the hospital Please follow-up with neurology, Dr. Castellanos, for history of stroke and close monitoring Please follow-up with your PCP within 1 week of discharge or follow-up at the [facility] [address] [place] [address] [phone] If your symptoms worsen or if you develop new chest pain, shortness of breath, severe headache or dizziness - please come back to the ED immediately Prescriptions/Referrals Prescriptions/Med Rec: New atorvastatin [Lipitor] 80 mg tablet 80 mg PO HS 30 Days Qty: 30 0RF clopidogrel 75 mg Tablet 75 mg PO QDAY 30 Days Qty: 30 0RF Continued aspirin 81 mg tablet,delayed release (DR/EC) 81 mg PO QDAY Qty: 90 0RF fluticasone propion-salmeterol [Advair HFA] 230-21 mcg/actuation HFA aerosol inhaler 2 puff INHALATION BID Qty: 12 5RF Rx Instructions: Directions in [place] amlodipine 10 mg tablet 10 mg PO QDAY Qty: 90 0RF albuterol sulfate [Ventolin HFA] 90 mcg/actuation HFA aerosol inhaler 2 puff inhalation Q6H PRN (Reason: shortness of breath or wheezing) Qty: 8.5 2RF sertraline [Zoloft] 100 mg tablet 100 mg PO QDAY hydrochlorothiazide 25 mg tablet 25 mg PO Q12H Patient Comments: TAKE 1 TABLET BY MOUTH DAILY tramadol 50 mg tablet 50 mg PO Q12H PRN (Reason: pain) Patient Comments: TAKE 1 TABLET BY MOUTH EVERY 12 HOURS NEEDED FOR PAIN Discontinued atorvastatin 20 mg tablet 20 mg PO QDAY Qty: 90 0RF Referrals: Nikolay Velasquez MD [Physician, Cardiology] No Primary/Family,Physician [Primary Care Provider] Juancarlos Castellanos MD [Physician, Neurology] Patient/Caregiver Discharge Instructions Education Materials: Symptoms of Stroke, Stroke: Resources and Support, Stroke: Self-Care, Discharge Instructions for Stroke, Risk Factors for Stroke Print Language: [place] Stand Alone Forms: Annita Award Info., Patient Portal Info Letter Discharge Order Discharge Orders: Discharge (Routine); Ordered 05/14/25 Ordered By: Morris Bunn Quality Discharge Quality Measures VTE prophylaxis
--- NOTE | 2025-05-14 13:31 | PD.RESPRO ---
Documentation for date of: 05/14/25 Exam Vital Signs Temp Pulse Resp BP Pulse Ox O2 Del Method O2 Flow Rate 98.3 F 103 H 24 H 139/80 H 96 Room Air 2 05/14/25 12:00 05/14/25 12:00 05/14/25 12:00 05/14/25 12:00 05/14/25 12:00 05/14/25 12:00 05/13/25 11:47 Objective Labs 05/14/25 05:52 05/14/25 05:52 Labs: Laboratory Results - last 24 hr 05/14/25 05:52 WBC 7.8 RBC 3.98 L Hgb 11.3 L Hct 36.0 MCV 91 MCH 28.4 MCHC 31.4 RDW Std Deviation 48.7 H Plt Count 235 D Neut % (Auto) 58 Lymph % (Auto) 23 [place] % (Auto) 14 H Eos % (Auto) 3 Baso % (Auto) 1 Neut # (Auto) 4.5 Lymph # (Auto) 1.8 [place] # (Auto) 1.1 H Eos # (Auto) 0.3 Baso # (Auto) 0.1 Immature Gran # (Auto) 0.07 H Absolute Nucleated RBC 0.00 Immature Gran % 1 H Nucleated RBC % 0 Sodium 142 Potassium 3.8 Chloride 106 Carbon Dioxide 25.1 Anion Gap 11 BUN 10 Creatinine 0.8 Estim Creat Clear Calc 77.3 eGFR > 60 BUN/Creatinine Ratio 13 Glucose 128 H Calculated Osmolality 284 Calcium 9.1 Corrected Calcium 9.1 Phosphorus 5.9 H Magnesium 2.0 Total Bilirubin 0.8 AST 14 ALT 8 L Alkaline Phosphatase 87 Total Protein 6.0 Albumin 4.2 Globulin 1.8 L Albumin/Globulin Ratio 2.3 H Quality Measures Quality Measures VTE prophylaxis Assessment & Plan Assessment Current Active Medications: Generic Name Dose Route Start Last Admin Trade Name Freq PRN Reason Stop Dose Admin Acetaminophen 650 mg 05/10/25 15:26 05/14/25 12:44 Acetaminophen 325 Mg Tablet PO 06/09/25 15:25 650 mg Q6H PRN Administration Fever >100.5 or pain 1-3 Albuterol/Ipratropium 3 ml 05/10/25 15:31 Albuterol/Ipratropium (Duoneb) Rt Lizeth 3 Ml Nebu INH 06/09/25 18:59 Q6HRRT PRN Dyspnea Aspirin 81 mg 05/12/25 09:00 05/14/25 08:16 Aspirin Ec 81 Mg Tabec PO 06/11/25 08:59 81 mg QDAY RAZA Administration Atorvastatin Calcium 80 mg 05/12/25 21:00 05/13/25 20:07 Atorvastatin Calcium 20 Mg Tablet PO 06/11/25 20:59 80 mg HS RAZA Administration Clopidogrel Bisulfate 75 mg 05/12/25 09:00 05/14/25 08:15 Clopidogrel Bisulfate 75 Mg Tablet PO 06/11/25 08:59 75 mg QDAY RAZA Administration Labetalol HCl 10 mg 05/10/25 16:26 05/11/25 10:12 Labetalol Inj 5 Mg/Ml Vial 20 Ml IVP 10 mg [id number] PRN Administration SBP > 180 mmHg or DBP > 105 Ondansetron HCl 4 mg 05/10/25 15:26 Ondansetron Inj 2 Mg/Ml Inj 2 Ml IVP 06/09/25 15:25 Q6H PRN NAUSEA OR VOMITING Protocol Pantoprazole Sodium 40 mg 05/15/25 09:00 Pantoprazole 40 Mg Tablet PO 06/14/25 08:59 QDAY RAZA Protocol
--- NOTE | 2025-05-14 13:53 | PC.SS ---
5 DME companies have [employer] in [place] & [place], [facility], [facility], and [facility]. [employer] is pending. SS has sent DME order to [facility].
--- NOTE | 2025-05-14 14:49 | PC.SS ---
SS has met with pt & dtr and provided her with [employer] with [facility]'s phone number to follow up with DME.
[2025-05-14 14:59] VITALS: BP 107/66; PULSE 98; RESP 18; TEMP 36.6; O2SAT 96
[2025-05-18 07:23] LABS: PTT-LA Screen 28 seconds (< OR = 40); Protein C Antigen, Total* 98 % normal (70-140); Protein S Antigen, Total* 102 % normal (70-140)
[2025-05-18 07:24] LABS: Antithrombin III, Activity 112 % normal (80-135); Antithrombin III, Antigen 94 % normal (80-120); dRVVT Screen 28 seconds (< OR = 45)
[2025-05-21 13:50] LABS: Cardiolipin Ab (IgA) <2.0 APL-U/mL; Cardiolipin Ab (IgG) <2.0 GPL-U/mL
[2025-05-24 06:58] LABS: B2-Glycoprotein I Ab IgA <2.0 U/mL; B2-Glycoprotein I Ab IgG <2.0 U/mL; B2-Glycoprotein I Ab IgM <2.0 U/mL; Cardiolipin Ab (IgM) <2.0 MPL-U/mL; Homocysteine* 7.7 umol/L (< OR = 13.4); Phos.Serine Ab IgG <9 U (< OR = 30); Phos.Serine Ab IgM 19 U (< OR = 30)
[2025-05-26 08:22] LABS: Antiphospholipid Ab Interp DUPLICATE ORDER; Cardiolipin Ab IgA DUPLICATE ORDER; Cardiolipin Ab IgG DUPLICATE ORDER; Cardiolipin Ab IgM DUPLICATE ORDER
== END 2025-05-14 14:57 | disposition home or self-care (01) | DRG 45 ==
LOC: SERX 14:10 → SERHOLD 16:14 → S2SX 05-11 07:46 → S2NX 05-14 08:07 → SERHOLD 05-24 09:01 → S2NX 05-24 09:01 → S2SX 05-24 09:01
PROVIDERS: Internal Medicine Cardiovascular Disease; Admitting Provider Internal Medicine Critical Care Medicine; Emergency Provider Emergency Medicine; Visit Provider Internal Medicine
PROC: (CPT 93312; principal; 2025-05-13 08:30)
DX: I63.89 Other cerebral infarction (principal); R53.1 Weakness; J45.909 Unspecified asthma, uncomplicated; E78.5 Hyperlipidemia, unspecified; Z86.73 Personal history of transient ischemic attack (TIA), and cerebral infarction without residual deficits; I10 Essential (primary) hypertension; R47.01 Aphasia; K21.9 Gastro-esophageal reflux disease without esophagitis; I83.899 Varicose veins of unspecified lower extremity with other complications; E87.6 Hypokalemia; D64.9 Anemia, unspecified; R29.810 Facial weakness; R29.704 NIHSS score 4; R73.03 Prediabetes; Z63.4 Disappearance and death of family member; Z79.02 Long term (current) use of antithrombotics/antiplatelets; Z79.82 Long term (current) use of aspirin; Z79.899 Other long term (current) drug therapy; Z86.19 Personal history of other infectious and parasitic diseases; Q21.12 Patent foramen ovale; Z96.659 Presence of unspecified artificial knee joint; I48.91 Unspecified atrial fibrillation; M54.30 Sciatica, unspecified side; E66.01 Morbid (severe) obesity due to excess calories; Z68.41 Body mass index [BMI] 40.0-44.9, adult
CPT/HCPCS: 36415; 70450; 70496; 70498; 70544; 71045; 80053; 80061; 80307; 81001; 82140; 83036; 83090; 83516; 83735; 84100; 84436; 84443; 84484; 84703; 85025; 85300; 85301; 85302; 85305; 85610; 85613; 85730; 86146; 86147; 86148; 87081; 92507; 92523; 92610; 93005; 93225; 93306; 93312; 93970; 96365; 96366; 96375; 97162; 99152; 99284; A4649; J2250; J2405; J2470; J3010; J3101; J3475; J3480; J3490; J7120; Q9967; A9270; J1920

== ENCOUNTER → 2025-05-17 | Outpatient (BNVA) | payer MEDICAID, SELFPAY | END | disposition home or self-care (01) | PROVIDERS: PCP Nurse Practitioner Family; Referring Provider Nurse Practitioner Family; Visit Provider Nurse Practitioner Family | DX: Z09 Encounter for follow-up examination after completed treatment for conditions other than malignant neoplasm (principal); I10 Essential (primary) hypertension; E78.5 Hyperlipidemia, unspecified; I63.89 Other cerebral infarction; Q21.12 Patent foramen ovale; Z71.2 Person consulting for explanation of examination or test findings | CPT/HCPCS: 99215 ==

== ENCOUNTER 2025-05-21 18:20 | Emergency (ER) | payer MEDICAID, SELFPAY ==
[2025-05-21 18:28] VITALS: BP 139/78; PULSE 86; RESP 19; TEMP 36.7; O2SAT 96; BMI 37.1
--- NOTE | 2025-05-21 18:44 | XR_ITS ---
Examination: CT brain head without contrast. 2-D sagittal coronal reconstructions Date and time of exam: May 21, 2025, 1837 hours INDICATIONS: Onset dizziness today CTDI: vol (mGy): 48.3 DLP: (mGycm): 922 Technique: Multiple CT axial sections of the brain have been obtained, 5 mm slice thickness. Contrast has not been administered. 2-D sagittal, coronal reconstructions have been obtained Low dose protocols were performed. One or more of the following dose reduction techniques were used; automated exposure control, adjustment of the mA and/or KV according to patient size, use of iterative reconstruction technique. Findings: No significant ventricular enlargement. Intra-axial or extra-axial hemorrhage density is not seen. No mass effect or midline shift Basal cisterns are not remarkable. Fourth ventricle is midline. Cranial vault intact. Impression: Negative for acute hemorrhage, mass effect or midline shift Advise clinical correlation and follow-up accordingly
[2025-05-21 19:17] LABS: Basophils # (Auto) 0.1 Thou/mm3 (0.0-0.2); Basophils % (Auto) 1 % (0-2.5); Eosinophils # (Auto) 0.3 Thou/mm3 (0.0-0.5); Eosinophils % (Auto) 4 % (0-10); Hematocrit 32.4 % (36.0-46.0); Hemoglobin 10.5 g/dL (12.0-16.0); Immature Granulocytes Auto 0.06 Thou/mm3 (0.00-0.00); Lymphocytes # (Auto) 2.5 Thou/mm3 (1.0-4.8); Lymphocytes % (Auto) 26 % (10-50); Mean Corpuscular HGB Conc 32.4 g/dl (31.0-37.0); Mean Corpuscular Hemoglobin 28.2 pg (25.0-35.0); Mean Corpuscular Volume 87 fL (80-100); Monocytes # (Auto) 1.2 Thou/mm3 (0.0-0.8); Monocytes % (Auto) 13 % (0-12); Neutrophils # (Auto) 5.3 Thou/mm3 (1.8-7.7); Neutrophils % (Auto) 56 % (37-80); Nucleated Red Blood Cell # 0.00 Thou/mm3 (0.00-0.00); Nucleated Red Blood Cell % 0 /100 WBC (0); Platelet Count 397 Thou/mm3 (140-440); RDW Standard Deviation 45.7 fL (36.4-46.3); Red Blood Count 3.73 Miln/mm3 (4.00-5.20); White Blood Count 9.5 Thou/mm3 (3.6-11.0)
[2025-05-21] MEDS: ONDANSETRON INJ 2 MG/ML INJ 2 ML 4 MG IVP (19:27)
[2025-05-21] MEDS: SODIUM CHLORIDE 0.9% 1000 ML 1,000 ML 999 ML IV (19:27)
[2025-05-21] MEDS: MECLIZINE HCL 25 MG TABLET 50 MG PO (19:27)
[2025-05-21 19:35] LABS: Alanine Aminotransferase 14 U/L (10-49); Albumin, Serum 4.6 gm/dL (3.4-4.8); Albumin/Globulin Ratio 1.9 (1.2-2.2); Alkaline Phosphatase 97 U/L (46-116); Anion Gap 9 (7-16); Aspartate Amino Transferase 22 U/L (0-34); BUN/Creatinine Ratio 13 Ratio (12-20); Bilirubin,Total 0.5 mg/dL (0.3-1.2); Blood Urea Nitrogen 10 mg/dL (9-23); Calcium 9.6 mg/dL (8.3-10.6); Calcium (Corrected) 9.6 mg/dL (8.5-10.1); Carbon Dioxide 29.7 mMol/L (20.0-31.0); Chloride 97 mMol/L (98-107); Creatinine (Component) 0.8 mg/dL (0.6-1.3); Estimated Creatinine Clearance 84.4 mL/min (>60); Globulin 2.4 gm/dL (2.3-3.5); Glucose 141 mg/dL (74-106); Lipase 26 U/L (12-53); Osmolality,Calculated 272 (275-295); Potassium 2.8 mMol/L (3.4-5.1); Sodium 136 mMol/L (136-145); Total Protein 7.0 gm/dL (5.7-8.2); eGFR > 60 See Note
--- NOTE | 2025-05-21 19:53 | EKG_ITS ---
[facility] Test Date: 2025-05-21 Pat Name: RAJESH VENEGAS Department: Room: - Gender: Female Business Partner: : [id number] Requested By: Cornelius Hurd Order Number: [id number] Reading MD: Cornelius Hurd Measurements Intervals [place] Rate: 83 P: 55 MT: 178 QRS: 33 QRSD: 94 T: 47 QT: 391 QTc: 461 Interpretive Statements SINUS RHYTHM NONSPECIFIC T-WAVE ABNORMALITY Compared to ECG 05/11/2025 00:34:12 T-wave abnormality now present /store/S0/[id number].pdf
[2025-05-21 20:22] LABS: Troponin I < 0.020 ng/mL (0.0-0.045)
[2025-05-21 20:30] LABS: Collection Type, Urine Clean Catch
[2025-05-21 20:46] LABS: HCG Qualitative,Urine Negative
[2025-05-21 20:52] LABS: Bilirubin,Urine Negative (Negative); Blood,Urine Negative (Negative); Clarity,Urine Clear (Clear/Hazy); Color,Urine Lt-Yellow (Lt Yel-Yel); Glucose, Urine Negative (Negative); Hyaline Casts,Urine < 1 /hpf (0-1); Ketones,Urine Negative (Negative); Leukocyte Esterase,Urine Negative (Negative); Nitrite,Urine Negative (Negative); PH,Urine 7.0 (5.0-7.0); Protein,Urine Negative (Neg - Trace); RBC,Urine 1 /hpf (0-3); Specific Gravity,Urine 1.019 (1.001-1.035); Squamous Epithelial Cell,Urine < 1 /hpf (0-5); Urobilinogen,Urine Negative mg/dL (0.0-1.0); WBC,Urine < 1 /hpf (0-5)
[2025-05-21] MEDS: POTASSIUM CHL 10 mEq IVPB 10 MEQ/100 ML BAG 100 MEQ IV ×2 (20:56→22:07)
[2025-05-21 21:02] VITALS: BP 139/66; PULSE 99; RESP 19; TEMP 37.1; O2SAT 95
--- NOTE | 2025-05-21 21:16 | PD.EDNV ---
Nausea/Vomit./Diarrhea-RME/HPI General Chief complaint: Nausea/Vomiting/Diarrhea Stated complaint: Dizzy, vomiting since yesterday Time Seen by Provider: 05/21/25 18:39 Arrival date/time: 05/21/25 18:20 This is a case of 64-year-old female with history of hypertension TIA CVA came in in the emergency room due to generalized weakness dizziness nausea and vomiting for 2 days patient was admitted here May 10, 2025 due to aphasia and CVA daughter states that the patient had 3 strokes for 1 week worsening of the symptoms this daughter decided to bring patient here in the emergency room Limitations: no limitations Related Data Home Medications ?Medication ?Instructions ?Recorded ?Confirmed sertraline 100 mg tablet (Zoloft) 100 mg PO QDAY 04/27/25 05/17/25 hydrochlorothiazide 25 mg tablet 25 mg PO Q12H 05/11/25 05/17/25 tramadol 50 mg tablet 50 mg PO Q12H PRN pain 05/11/25 05/17/25 Previous Rx's ?Medication ?Instructions ?Recorded albuterol sulfate 90 mcg/actuation 2 puff inhalation Q6H PRN 03/31/25 aerosol inhaler (Ventolin HFA) shortness of breath or wheezing #8.5 grams aspirin 81 mg tablet,delayed 81 mg PO QDAY #90 tabs 04/16/25 release fluticasone propionate 230 2 puff inhalation BID #12 grams 04/16/25 mcg-salmeterol 21 mcg/actuation HFA inhaler (Advair HFA) amlodipine 10 mg tablet 10 mg PO QDAY #90 tabs 05/06/25 atorvastatin 80 mg tablet (Lipitor) 80 mg PO HS 1 month #30 tabs 05/13/25 clopidogrel 75 mg tablet 75 mg PO QDAY 1 month #30 tabs 05/13/25 ondansetron 4 mg disintegrating 4 mg PO Q8H #20 tabs 05/22/25 tablet potassium chloride 10 mEq 10 meq PO QDAY 7 days #7 tabs 05/22/25 tablet,extended release (Klor-Con) Allergies Allergy/AdvReac Type Severity Reaction Status Date / Time No Known Allergies Allergy Verified 05/21/25 18:26 Review of Systems Review of Systems Systems Reviewed: All systems reviewed, normal except as documented Constitutional Constitutional: Reports system reviewed and no additional complaints, except as documented, Reports as per HPI, Denies frequent falls, Reports headache(s) and Denies weakness Eyes Eyes: Reports system reviewed and no additional complaints, except as documented, Reports as per HPI and Denies loss of vision ENT Ears, Nose, Mouth, and Throat: Denies abnormal hearing, Denies disequilibrium, Reports dizziness, Reports headache(s) and Denies vertigo Cardiovascular Cardiovascular: Reports system reviewed and no additional complaints, except as documented, Reports as per HPI and Denies syncope Respiratory Respiratory: Reports system reviewed and no additional complaints, except as documented and Reports as per HPI Gastrointestinal Gastrointestinal: Reports system reviewed and no additional complaints, except as documented and Reports as per HPI Musculoskeletal Musculoskeletal: Reports system reviewed and no additional complaints, except as documented, Reports as per HPI, Denies abnormal gait, Denies numbness and Denies tingling Neurologic Neurologic: Reports system reviewed and no additional complaints, except as documented, Reports as per HPI, Denies abnormal gait, Denies abnormal hearing, Denies abnormal movements, Denies abnormal speech, Denies behavioral changes, Denies burning sensations, Denies confusion, Denies convulsions, Denies disequilibrium, Reports dizziness, Denies localized weakness, Denies frequent falls, Reports headache(s), Denies lack of coordination, Denies loss of vision, Denies memory loss, Denies numbness, Denies other visual disturbances, Denies paresthesias, Denies radicular pain, Denies restless legs, Denies seizure-like activity, Denies sensory deficit, Denies syncope, Denies tingling, Denies tremor(s), Denies vertigo and Denies weakness Psychiatric Psychiatric: Denies behavioral changes, Denies confusion and Denies memory loss Past Medical History Past Medical History NEUROLOGIC: Positive Cerebrovascular Accident and Transient Ischemic Attacks (TIA) (10YEARS AGO PER SCARLET DAUGHTER); Negative Neurological Disorders, Seizures or Ortega's Palsy CARDIAC: Positive Cardiac Disorders, Hypercholesterolemia, Hypertension and Varicose Veins; Negative Congestive Heart Failure, Edema or Cellulitis RESPIRATORY: Positive Asthma; Negative Chronic Obstructive Pulmonary Disease (COPD), Pneumonia, Tuberculosis or Sleep Apnea GASTROINTESTINAL: Positive Gastrointestinal Disorders, Gall Bladder Disease, Hemorrhoids, Gastroesophageal Reflux Disease and Obesity; Negative Hepatitis or Colorectal Cancer GENITOURINARY: Negative Genitourinary Disorders or Renal Disease REPRODUCTIVE: Positive Previous Pregnancies; Negative Breast Cancer MUSCULOSKELETAL: Positive Musculoskeletal Disorders and Arthritis; Negative Bone Cancer ENT: Positive Cataracts; Negative Deafness ENDOCRINE: Negative Endocrine Disorders, Diabetes Mellitus Type 1 or Diabetes Mellitus Type 2 HEMATOLOGIC: Positive Blood Disorders and Anemia; Negative Sickle Cell Disease PSYCHO/SOCIAL: Positive Depression and Anxiety OTHER HISTORY: Negative Hospitalization, Autoimmune Disease, Down Syndrome, Developmental Delay, Shingles, Falls, Blood Transfusions, Blood Transfusion Reaction, Anesthesia Reactions, Organ Transplant, Chemotherapy, Radiation Therapy, Hyperbaric Therapy, MRSA, VRSA, Vancomycin-Resistant Enterococci, Human Immunodeficiency Virus (HIV), Chicken Pox, Measles, Mumps, Clostridium Difficile, Cancer, Breast Cancer, Cervical Cancer, Colorectal Cancer, Lung Cancer or Ovarian Cancer Family History FAMILY HISTORY: Positive Family Psychiatric Problems, Family Respiratory Disorders, Family Cardiac Disorders, Family Cancer and Family Surgery; Negative Family Gastrointestinal Problems or Family Anesthesia Reaction Surgical History SURGICAL: Positive Abdominal Surgery, Joint Replacement, Hysterectomy and Tubal Ligation; Negative Cardiac Surgery, Pacemaker, Endocrine Surgery, Ear Surgery, Neurologic Surgery or Organ Transplant Social History SMOKING STATUS: Never smoker SUBSTANCE USE: does not use ED Exam General Limitations: Present no limitations General appearance: Present alert, in no apparent distress and other (Patient is awake alert oriented not in distress nontoxic looking well-hydrated well-nourished) Head Head exam: Present atraumatic, normocephalic and normal inspection Eye Eye exam: Present normal appearance, PERRL, EOMI and other (PERRL EOM intact normal conjunctiva no papilledema no hyphema) ENT ENT exam: Present normal exam, normal oropharynx, mucous membranes moist and other (HEENT exam is normal and unremarkable) Neck Neck exam: Present normal inspection, full ROM, trachea midline and other (Negative meningeal sign); Absent tenderness, meningismus, lymphadenopathy or thyromegaly Chest Chest inspection: Present normal inspection and symmetric chest wall rise; Absent tenderness Respiratory Respiratory exam: Present normal lung sounds bilaterally; Absent respiratory distress, wheezes, stridor, accessory muscle use or prolonged expiratory phase Cardiovascular Cardiovascular exam: Present regular rate, normal rhythm, normal heart sounds and other (Can have trace pitting edema both lower extremity); Absent bradycardia, tachycardia, irregular rhythm, systolic murmur or diastolic murmur Abdominal Exam Abdominal exam: Present soft and normal bowel sounds; Absent distention, tenderness, guarding, rebound, rigidity, diminished bowel sounds, hyperactive bowel sounds, hypoactive bowel sounds or organomegaly Extremities Exam Extremities exam: Present normal inspection and full ROM Back Exam Back exam: Present normal inspection and full ROM Neurological Exam Neurological exam: Present alert, oriented X3, CN II-XII intact, reflexes normal and other (Awake alert oriented x 4 no focal deficit GCS 15/15 unable to assess gait due to dizziness negative Babinski memory intact CN II to XII is normal no slurring of speech no facial droop motor or sensory reflex normal); Absent motor sensory deficit Psychiatric Psychiatric exam: Present normal affect and normal mood Skin Skin exam: Present warm, dry, intact, normal color and other (Excellent skin turgor) Course Quality Measures none Orders Category Date Time Status EKG (ED ONLY) *Do not use* NOW Care 05/21/25 19:53 Completed Insert IV NOW Care 05/21/25 19:[address] head/brain wo con Stat Exams 05/21/25 18:44 Completed EKG (ED Only) Stat Exams 05/21/25 19:53 Draft US venous doppler LE BI Stat Exams 05/21/25 22:34 Completed BNP [B-Type Natriuretic Peptide] Stat Lab 05/21/25 19:09 Completed CBC Stat Lab 05/21/25 18:50 Completed Comprehensive Metabolic Panel Stat Lab 05/21/25 18:50 Completed HCG Qualitative,Urine Stat Lab 05/21/25 20:26 Completed Lipase Stat Lab 05/21/25 18:50 Completed Potassium Stat Lab 05/22/25 01:40 Completed Troponin I Stat Lab 05/21/25 18:50 Completed Urinalysis Stat Lab 05/21/25 20:26 Completed Meclizine HCl [Antivert] Med 05/21/25 18:44 Discontinued 50 mg PO X1 ONE Ondansetron Inj [Zofran Inj] Med 05/21/25 18:44 Discontinued 4 mg IVP X1 ONE POTASSIUM CHL 10 mEq IVPB [Kcl Ivpb] Med 05/21/25 20:00 Discontinued 10 meq in 100 ml IV Q1H POTASSIUM CHL 10 mEq IVPB [Kcl Ivpb] 100 ml Med 05/21/25 19:52 Discontinued IV Q2HR Potassium Chloride [K-Dur] Med 05/21/25 19:51 Discontinued 40 meq PO X1 ONE Sodium Chloride 0.9% 1000 ml [Ns] 1,000 ml Med 05/21/25 18:44 Discontinued IV 999 mls/hr Sodium Chloride 0.9% 1000 ml [Ns] 1,000 ml Med 05/21/25 21:57 Active IV X1 Vital Signs Vital signs: Vital Signs Temperature 98.0 F 05/21/25 18:28 Pulse Rate 86 05/21/25 18:28 Respiratory Rate 19 05/21/25 18:28 Blood Pressure 139/78 H 05/21/25 18:28 Pulse Oximetry (%) 96 05/21/25 18:28 Oxygen Delivery Method Room Air 05/21/25 18:28 Patient oxygen level is 96% normal Nausea/Vomiting/Diarrhea MDM Narrative MDM Narrative:: This is a case of 64-year-old female with history of hypertension TIA CVA came in in the emergency room due to generalized weakness dizziness nausea and vomiting for 2 days patient was admitted here May 10, 2025 due to aphasia and CVA daughter states that the patient had 3 strokes for 1 week worsening of the symptoms this daughter decided to bring patient here in the emergency room physical examination patient is awake alert oriented not in distress nontoxic looking neurological exam is normal awake alert oriented x 4 no focal deficit GCS 15/15 able to assess gait due to dizziness memory intact no slurring of speech no facial droop CN II to XII is normal motor or sensory reflex were all normal HEENT exam is normal PERRLA EOM intact normal conjunctiva no palpable edema no hyphema lungs sound is clear no crackles no rales no retraction no stridor heart normal rate regular rhythm no murmur mild pitting edema both lower extremities the rest of the physical examination and neurological exam is normal and unremarkable patient blood test showed no leukocytosis mild anemia hemoglobin is 10.5 kidney and liver function is normal sodium is normal potassium is low 2.8 troponin is negative EKG sinus rhythm BNP is normal CT scan of the head is normal unremarkable not CVA not TIA patient venous ultrasound is normal not DVT I discussed patient condition to Dr. lai hospitalist discussed patient condition history and physical examination history of CVA from the previous visit Dr. Vizcaino seen and examined patient spoke to the neurologist Dr. Reynolds according to the neurologist patient symptoms is not neurological in nature patient dizziness is probably due to vomiting and hypokalemia at this time they will not admit the patient treat the potassium discharge patient with cane to return mEq and follow-up with PCP for repeat potassium after 40 mEq K-Dur and K rider 20 mEq and noted to be 4.8 discussed with the daughter the treatment plan and follow-up with primary care physician and she understood very well that they need to follow-up with PCP to monitor potassium level and for any worsening symptoms or any emergent concern they will return in the emergency room immediately or call 911 they will also follow-up with the neurologist for CVA history Patient was discharged with comfortable condition walking with stable gait. Patient verbalized no further complains explained diagnosis and answered patient question. Patient is comfortable with the proposed management plan including the need to follow up with his/her primary care physician and any specialist if applicable Discussed patient for any urgent condition or worsening sx, He/She needed to go to emergency room immediately or call 911. Patient acknowledge the responsibility to follow up as instructed and to monitor her/his symptoms. For any persistence of the symptoms for more than 3-5 days return precaution advised. Discussed the result of the test and was given printed discharge instruction Patient data External records reviewed:: [facility] previous records Clinical information provided by:: patient Social determinants that could affect healthcare access:: none Patient has the following chronic illnesses:: None How is presenting disease/condition affected by chronic disease/condition?: no chronic disease Evaluation data The following diagnostics were reviewed and interpreted by me:: lab results, radiology exam(s) and EKG tracing(s) Lab and/or radiology exams considered but not ordered:: Reviewed Interpretation Summary: Reviewed Medications / Prescriptions Medications / Prescriptions considered but not ordered:: Given Medication administrations:: Medication Administration History Sodium Chloride (Ns) 1,000 mls @ 100 mls/hr IV X1 ONE Stop: 05/22/25 07:56 Last Admin: 05/21/25 21:50 Dose: 100 mls/hr Documented By: KYLER Discontinued Medications Sodium Chloride (Ns) 1,000 mls @ 999 mls/hr IV .Q1H1M ONE Stop: 05/21/25 19:44 Last Infusion: 05/21/25 21:37 Dose: Infused Documented By: Admin: 05/21/25 19:27 Dose: 999 mls/hr Documented By: YANN Potassium Chloride (Kcl Ivpb) 100 mls @ 50 mls/hr IV Q2HR RAZA Stop: 05/21/25 21:59 Last Admin: 05/21/25 20:47 Dose: Not Given Documented By: KYLER Non-Admin Reason: Discontinued Potassium Chloride (Kcl Ivpb) 10 meq in 100 mls @ 100 mls/hr IV Q1H RAZA Stop: 05/21/25 21:59 Last Infusion: 05/21/25 23:07 Dose: Infused Documented By: Admin: 05/21/25 22:07 Dose: 100 mls/hr Documented By: Infusion: 05/21/25 22:06 Dose: Infused Documented By: Admin: 05/21/25 20:56 Dose: 100 mls/hr Documented By: KYLER Meclizine HCl (Meclizine Hcl 25 Mg Tablet) 50 mg PO X1 ONE Stop: 05/21/25 18:45 Last Admin: 05/21/25 19:27 Dose: 50 mg Documented By: BD Ondansetron HCl (Ondansetron Inj 2 Mg/Ml Inj 2 Ml) 4 mg IVP X1 ONE; Protocol Stop: 05/21/25 18:45 Last Admin: 05/21/25 19:27 Dose: 4 mg Documented By: BD Potassium Chloride (Potassium Chloride 20 Meq Tabcr) 40 meq PO X1 ONE Stop: 05/21/25 19:52 Last Admin: 05/21/25 20:56 Dose: 40 meq Documented By: KYLER Given Consultations Consultation(s) initiated? (list below): Yes Consultation #1 (Physician, Specialty, Details): Dr. Vizcaino at the time of exam there is no indication of patient to be admitted patient symptoms is not neurologically in nature patient dizziness is due to vomiting secondary to hypokalemia treat the potassium and follow-up with PCP Diagnosis Nausea Differential Diagnosis: gastroenteritis, drug-induced nausea and vomiting and dehydration Most likely diagnosis given after review of the tests above:: Hypokalemia Admission Indicated Admission indicated?: not indicated Explain why admission is indicated or not indicated:: Not indicated Admission Request Was there a request for admission?: No Admission Attestation Admission request attestation: Not indicated Disposition Plan Disposition Plan: Discharge Discharge Attestation Discharge Attestation: The patient and all family members were given an opportunity to ask questions and understood the discharge instructions. Discharge instructions specifically effects, indications for sooner follow up or return to the emergency department, and the expected course of current diagnosis. Patient condition: Stable Discharge Plan Plan Patient Disposition: HOME (Self Care) Patient condition on transfer: Stable Prescriptions/Referrals Prescriptions/Med Rec: New potassium chloride [Klor-Con 10] 10 mEq tablet extended release 10 meq PO QDAY 7 Days Qty: 7 0RF Rx Instructions: Start on May 23 ondansetron 4 mg tablet,disintegrating 4 mg PO Q8H Qty: 20 0RF No Action aspirin 81 mg tablet,delayed release (DR/EC) 81 mg PO QDAY Qty: 90 0RF fluticasone propion-salmeterol [Advair HFA] 230-21 mcg/actuation HFA aerosol inhaler 2 puff INHALATION BID Qty: 12 5RF Rx Instructions: Directions in Mauritian amlodipine 10 mg tablet 10 mg PO QDAY Qty: 90 0RF albuterol sulfate [Ventolin HFA] 90 mcg/actuation HFA aerosol inhaler 2 puff inhalation Q6H PRN (Reason: shortness of breath or wheezing) Qty: 8.5 2RF sertraline [Zoloft] 100 mg tablet 100 mg PO QDAY hydrochlorothiazide 25 mg tablet 25 mg PO Q12H Patient Comments: TAKE 1 TABLET BY MOUTH DAILY tramadol 50 mg tablet 50 mg PO Q12H PRN (Reason: pain) Patient Comments: TAKE 1 TABLET BY MOUTH EVERY 12 HOURS NEEDED FOR PAIN atorvastatin [Lipitor] 80 mg tablet 80 mg PO HS 30 Days Qty: 30 0RF clopidogrel 75 mg Tablet 75 mg PO QDAY 30 Days Qty: 30 0RF Referrals: [facility] PRINCIPAL TECHNICAL SPECIALIST,Tiff De Los Santos, PRINCIPAL TECHNICAL SPECIALIST [Primary Care Provider, Family Practice] - In 1 week Problem List Clinical Impression: Vomiting, Dizziness, Hypokalemia, Edema, peripheral Patient/Caregiver Discharge Instructions Education Materials: Self-Care for Vomiting and Diarrhea, ED Dizziness, Uncertain Cause, ED Leg Swelling in Both Legs, ED Hypokalemia Additional Instructions: Follow-up with your primary care physician in 2 days for reevaluation and to repeat the level of potassium as an outpatient start potassium 10 mEq on May 23 as instructed by the hospitalist follow-up with your neurologist follow-up with your CVA as instructed worsening symptoms with persistent or any emergent concern call 911 or go to the nearest emergency room follow-up with your primary care physician to monitor and refer you to vascular surgeon for peripheral edema elevate your both lower extremities to decrease swelling use of KIRILL hose stocking is advised Print Language: Mauritian Stand Alone Forms: Annita Award Info., Patient Portal Info Letter PA/MODELING AGENCY MANAGER Supervising Physician PA/MODELING AGENCY MANAGER Supervising Physician: Dr. Field
[2025-05-21] MEDS: SODIUM CHLORIDE 0.9% 1000 ML 1,000 ML 100 ML IV (21:50)
--- NOTE | 2025-05-21 22:34 | XR_ITS ---
Examination: Venous duplex lower extremity sonogram, bilateral. Date and time of exam: May 21, 2025, 10:57 a.m. INDICATIONS: Leg pain and swelling post varicose vein surgery April 29, 2025 Technique: Multiple sonographic images of the deep venous system have been obtained. B-mode/2-D grayscale imaging of vascular structures and Doppler spectral analysis (waveforms) and color performed Both legs are examined. Findings: Deep venous systems do not demonstrate abnormal echogenicity. All visualized deep veins exhibit compressibility. All visualized deep veins exhibit augmentation. Impression: Negative for deep vein thrombosis
[2025-05-21 23:04] LABS: B-Type Natriuretic Peptide < 20 pg/mL (0-100)
[2025-05-21 23:26] VITALS: BP 118/85; PULSE 90; RESP 14; TEMP 36.9; O2SAT 92
[2025-05-22 02:15] LABS: Potassium 4.5 mMol/L (3.4-5.1)
[2025-05-22 02:44] VITALS: BP 120/81; PULSE 91; RESP 14; TEMP 37.1; O2SAT 94
== END 2025-05-22 02:50 | disposition home or self-care (01) ==
PROVIDERS: Nurse Practitioner Family; Emergency Provider Emergency Medicine; PCP Nurse Practitioner Family
DX: R19.7 Diarrhea, unspecified (principal); R11.2 Nausea with vomiting, unspecified
CPT/HCPCS: 36415; 70450; 80053; 81001; 81025; 83690; 83880; 84132; 84484; 85025; 93005; 93970; 96361; 96365; 96366; 96375; 99284; J2405; J3480; J7030; A9270

== ENCOUNTER 2025-05-25 09:15 | Outpatient (AMB) | payer MEDICAID, SELFPAY ==
--- NOTE | 2025-05-25 10:02 | PD.ORTHCLVIS ---
Vital signs 05/25/25 10:13 Height 1.6 m Height Method Stated Weight 100.726 kg Weight Measurement Method Standing Scale BMI 39.3 BP 149/77 H Blood Pressure Source Automatic Cuff Blood Pressure Location Left Upper Arm Position Sitting Respiration 19 Pulse 101 H Pulse Source Monitor Temp 98.2 F Temp Source Temporal Artery Scan Pulse Oximetry (%) 93 L Oxygen Delivery Method Room Air Med/Allergies Allergies & Medications Allergies No Known Allergies Allergy (Verified 05/25/25 10:13) Medication Reconciliation albuterol sulfate 90 mcg/actuation aerosol inhaler (Ventolin HFA) 2 puff inhalation Q6H PRN shortness of breath or wheezing #8.5 grams 03/31/25 [Rx Confirmed 05/25/25] aspirin 81 mg tablet,delayed release 81 mg PO QDAY #90 tabs 04/16/25 [Rx Confirmed 05/25/25] fluticasone propionate 230 mcg-salmeterol 21 mcg/actuation HFA inhaler (Advair HFA) 2 puff inhalation BID #12 grams 04/16/25 [Rx Confirmed 05/25/25] sertraline 100 mg tablet (Zoloft) 100 mg PO QDAY 04/27/25 [History Confirmed 05/25/25] amlodipine 10 mg tablet 10 mg PO QDAY #90 tabs 05/06/25 [Rx Confirmed 05/25/25] hydrochlorothiazide 25 mg tablet 25 mg PO Q12H 05/11/25 [History Confirmed 05/25/25] tramadol 50 mg tablet 50 mg PO Q12H PRN pain 05/11/25 [History Confirmed 05/25/25] atorvastatin 80 mg tablet (Lipitor) 80 mg PO HS 1 month #30 tabs 05/13/25 [Rx Confirmed 05/25/25] clopidogrel 75 mg tablet 75 mg PO QDAY 1 month #30 tabs 05/13/25 [Rx Confirmed 05/25/25] ondansetron 4 mg disintegrating tablet 4 mg PO Q8H #20 tabs 05/22/25 [Rx Confirmed 05/25/25] potassium chloride 10 mEq tablet,extended release (Klor-Con) 10 meq PO QDAY 7 days #7 tabs 05/22/25 [Rx Confirmed 05/25/25] Exam Exam Patient is in no acute distress and is cooperative with the examination today. Patient has a normal mood and affect. Breathing is nonlabored. In no respiratory distress. Bilateral extremities were evaluated and demonstrates sensation intact to light touch. Palpable pedal pulses are present. No significant edema is present. Right knee incision is clean dry intact. Range of motion is 0 to 105 degrees. Knee feels stable varus valgus tress with AP translation X-rays of the right knee demonstrates a cemented DePuy attune total knee replacement. There is osteolysis around the tibial stem. I do not have old radiographs to see if this has progressed. 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 She recently came off of a stroke 2 weeks ago and was hospitalized for over a week. She is obviously not a great candidate for any kind of surgery at this point in time. She should start therapy for her stroke and she has not been to it yet. We gave her a prescription for that in for her knee. In addition, I am concerned about her tibial component. It looks like there is osteolysis and will first rule out infection. We would not do surgery anyway as she is not optimized at this time but we would first start with therapy and we will rule out infection with ESR and CRP as well as likely an aspiration with Synovasure We will see her back in approximately 4 to 6 weeks for routine follow-up Advanced Care Planning Discussion Advance care planning discussed with:: patient and child (TWO DAUGHTERS) Office Procedures GNS Level of Care Nursing/Assessment Patient Status: Initial/New Patient Nursing Assessment/Reassesment: Medication Reconciliation, Update PMH in EMR and Vital Signs Coordination of Care: Complex Care and Chronic Disease 1-5, Education Complex Pt/Fam, Consent,records obtained, informed consent, 1 Ins Authorization, Lab and Imaging orders, Results/Orders obtained and Staff clarify orders Special Needs: Language special needs New Patient Charge New Patient Point Assignment: 1124 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 ) Required: Yes PCP or OBGYN visit in last 3 months: Yes Hx Now: No Do You Feel Safe at Home: Yes Authorities Contacted: N/A Questionairres Past Medical History Past Medical History Have you ever been diagnosed with any of the following: Neurological Problems Cerebrovascular Accident (CVA): Yes Transient Ischemic Attacks (TIA): Yes (10YEARS AGO PER SCARLET DAUGHTER) Seizures: No Ortega's Palsy: No Cardiology Problems Hypercholesterolemia: Yes Congestive Heart Failure: No Edema: No Cellulitis: No Hypertension: Yes Varicose Veins: Yes Respiratory Problems Chronic Obstructive Pulmonary Disease (COPD): No Asthma: Yes Pneumonia: No Tuberculosis: No Sleep Apnea: No Stomache/Intestinal Problems Hepatitis: No Gall Bladder Disease: Yes Colorectal Cancer: No Hemorrhoids: Yes Gastroesophageal Reflux Disease: Yes Obesity: Yes Genital/Urinary Problems Renal Disease: No Reproductive Problems Breast Cancer: No Previous Pregnancies: Yes Musculoskeletal Problems Bone Cancer: No Arthritis: Yes Head,Eye,Nose,Throat Problems Cataracts: Yes Deafness: No Endocrine Problems Diabetes Mellitus Type 1: No Diabetes Mellitus Type 2: No Blood Problems Anemia: Yes Sickle Cell Disease: No Psychologic Problems Depression: Yes Anxiety: Yes Other Problems Hospitalization: No Down Syndrome: No Developmental Delay: No Shingles: No Falls: No Blood Transfusions: No Blood Transfusion Reaction: No Anesthesia Reactions: No Organ Transplant: No Chemotherapy: No Radiation Therapy: No Hyperbaric Therapy: No MRSA: No VRSA: No Vancomycin-Resistant Enterococci: No Human Immunodeficiency Virus (HIV): No Chicken Pox: No Measles: No Mumps: No Clostridium Difficile: No Cancer: No Cervical Cancer: No Lung Cancer: No Ovarian Cancer: No Surgical History Hysterectomy: Yes Pacemaker: No Subjective Visit Visit for: new patient and knee (RIGHT) Immunization / Flu Flu Vaccine in the Last 12 Months: Yes Flu Vaccine Exclusion Criteria: Already Received History of Present Illness Chief complaint: Bilateral knee pain Date of injury / onset of symptoms: 1 YEAR Date of 1st surgery (if applicable): 2014 BILATERAL TKA HISTORY OF PRESENT ILLNESS I, Juan Carlos Schultz, have obtained verbal consent from the patient, to be recorded during this encounter which may include, but not limited to, medical history, examination, treatment plans, and relevant health information.? Patient was informed that recording will be read and reviewed by myself before inclusion in the medical chart. The patient is a 64-year-old female who presents today for evaluation of her right knee pain, which has been ongoing for a year. She has high blood pressure and cholesterol and sees a disease management nurse. She recently, 2 to 3 weeks ago, had 3 strokes and was hospitalized. She also had varicose veins surgery on 04/29/2025, during which she contracted an infection and was hospitalized for a few days. She has not had any injections or physical therapy. She takes tramadol for the pain, which does not help. She reports experiencing pain in her right knee, particularly when ambulating. The onset of her current knee pain was approximately 1 year ago. She underwent bilateral total knee replacements approximately 10 years ago, with the right knee being operated on first. Prior to her surgery, she experienced instability and a sensation of popping in her knee. She reports experiencing weakness following her stroke and has not yet started physical therapy. PAST SURGICAL HISTORY: - Bilateral total knee replacements approximately 10 years ago - Varicose veins surgery on 04/29/2025 -3 Strokes 2-3 weeks ago hospitalized for 1 week Pain Pain level (0-10): 5 Pain duration: WITH MOVENMENT Pain location: inside (medial), outside (lateral), anterior and posterior Pain quality: sharp, dull, aching and burning Pain timing: night, increases with activity and stairs Associated signs & symptoms: numbness, weakness and stiffness Ambulatory data Ambulatory device: walker Treatments Number of previous injections: 0 Improvement with previous injections: No Number of Physical Therapy sessions: 0 Improvement with PT: No Improvement with NSAIDS: no Review of Systems Review of Systems: All systems negative unless otherwise noted in HPI.
[2025-05-25 10:13] VITALS: BP 149/77; PULSE 101; RESP 19; TEMP 36.8; O2SAT 93; BMI 39.3
== END 2025-05-25 10:14 | disposition home or self-care (01) ==
PROVIDERS: PCP Nurse Practitioner Family; Referring Provider Nurse Practitioner Family; Supervising Provider Orthopaedic Surgery Adult Reconstructive Orthopaedic Surgery; Visit Provider Orthopaedic Surgery Adult Reconstructive Orthopaedic Surgery
DX: T84.052A Periprosthetic osteolysis of internal prosthetic right knee joint, initial encounter (principal); M89.561 Osteolysis, right lower leg
CPT/HCPCS: 99204; G0463

== ENCOUNTER → 2025-05-25 | Outpatient (BNVA) | payer MEDICAID, SELFPAY | END | disposition home or self-care (01) | PROVIDERS: PCP Nurse Practitioner Family; Referring Provider Nurse Practitioner Family; Visit Provider Nurse Practitioner Family | DX: R60.9 Edema, unspecified (principal); E87.6 Hypokalemia; Z09 Encounter for follow-up examination after completed treatment for conditions other than malignant neoplasm; I10 Essential (primary) hypertension; J45.909 Unspecified asthma, uncomplicated; E78.5 Hyperlipidemia, unspecified; I63.89 Other cerebral infarction | CPT/HCPCS: 99214 ==

== ENCOUNTER → 2025-06-04 | Outpatient (BNVA) | payer MEDICAID, SELFPAY | END | disposition home or self-care (01) | PROVIDERS: PCP Nurse Practitioner Family; Referring Provider Nurse Practitioner Family; Visit Provider Nurse Practitioner Family | DX: K21.9 Gastro-esophageal reflux disease without esophagitis (principal); Z76.0 Encounter for issue of repeat prescription; I10 Essential (primary) hypertension; F32.1 Major depressive disorder, single episode, moderate; E78.5 Hyperlipidemia, unspecified; J45.909 Unspecified asthma, uncomplicated; I69.359 Hemiplegia and hemiparesis following cerebral infarction affecting unspecified side; R60.9 Edema, unspecified | CPT/HCPCS: 99213 ==

== ENCOUNTER → 2025-06-09 | Outpatient (BNVA) | payer MEDICAID, SELFPAY | END | disposition home or self-care (01) | PROVIDERS: PCP Nurse Practitioner Family; Referring Provider Nurse Practitioner Family; Visit Provider Nurse Practitioner Family | DX: Z71.2 Person consulting for explanation of examination or test findings (principal); I10 Essential (primary) hypertension | CPT/HCPCS: 99213 ==

== ENCOUNTER 2025-06-12 12:26 | Inpatient (IN) | payer MEDICAID, SELFPAY ==
[2025-06-12] VITALS (9 sets, daily range): BP systolic 142–170; BP diastolic 80–93; PULSE 72–98; RESP 16–21; TEMP 36.3–37.1; O2SAT 95–197; BMI 36.6
--- NOTE | 2025-06-12 12:49 | XR_ITS ---
EXAMINATION: AP chest single view TECHNIQUE: AP portable semiupright chest single view Date and time: June 12, 2025, 1248 hours, comparison May 10, 2025 INDICATIONS: Shortness of breath today. FINDINGS: Mild prominence left ventricle No pneumonia or pulmonary edema Moderate osteopenia IMPRESSION: No pneumonia or pulmonary edema
--- NOTE | 2025-06-12 12:50 | EKG_ITS ---
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
--- NOTE | 2025-06-12 12:59 | PD.EDSOB ---
ED SOB =RME/HPI General Chief Complaint: Shortness of Breath/Dyspnea Stated Complaint: SOB X 3 days, has asthma Time Seen by Provider: 06/12/25 12:47 Arrival date/time: 06/12/25 12:26 65-year-old female patient with significant history of asthma, hypertension COPD, was brought in by family for evaluation regarding shortness of breath. Patient has been having cough, shortness of breath, getting worse today, associated with wheezing, patient been using her albuterol breathing treatment with no relief. Patient denies any chest pain and coughing. Denies any fever. Denies any diaphoresis. Denies any abdominal pain. Patient is ambulatory. Patient was noted to be satting 97% on room air. Patient told me that he has been taking on and off tramadol for leg pain. Patient denies any vomiting blood or blood in the stool. Related Data Home Medications ?Medication ?Instructions ?Recorded ?Confirmed azelastine 0.05 % eye drops 1 drp Both eyes BID 05/25/25 06/09/25 Previous Rx's ?Medication ?Instructions ?Recorded albuterol sulfate 90 mcg/actuation 2 puff inhalation Q6H PRN 06/04/25 aerosol inhaler (Ventolin HFA) shortness of breath or wheezing #8.5 grams aspirin 81 mg tablet,delayed 81 mg PO QDAY #90 tabs 06/04/25 release atorvastatin 80 mg tablet (Lipitor) 80 mg PO HS #30 tabs 06/04/25 carvedilol 3.125 mg tablet 3.125 mg PO BID 30 days #60 tabs 06/04/25 clopidogrel 75 mg tablet 75 mg PO QDAY 0 months #30 tabs 06/04/25 fluticasone propionate 230 2 puff inhalation BID #12 grams 06/04/25 mcg-salmeterol 21 mcg/actuation HFA inhaler (Advair HFA) losartan 50 mg tablet 50 mg PO QDAY #30 tabs 06/04/25 sertraline 100 mg tablet (Zoloft) 100 mg PO QDAY #30 tabs 06/04/25 Allergies Allergy/AdvReac Type Severity Reaction Status Date / Time No Known Allergies Allergy Verified 06/12/25 12:32 Review of Systems Review of Systems Narrative Review of Systems: Review of system reviewed and within normal limits except mentioned in HPI ED Exam Narrative Physical exam: VITAL SIGNS: Reviewed. GENERAL APPEARANCE: Alert and interactive, follows commands, no acute distress, HEAD AND FACE: Non-traumatic. ENT: PERRL, pink conjunctivitis, eyelid no trauma, Mucous membrane moist. NECK: Supple, nontender, no nuchal rigidity. CHEST: No tenderness, no crepitus, no paradoxical movement, no retractions. LUNGS: Symmetric, no rales, + bilateral wheezing, no ronchi, no stridor, decreased breath sounds bilaterally. HEART: Regular rate, regular rhythm, no murmur, no gallops. ABDOMEN: Soft, positive bowel sounds, nondistended, no guarding, nontender, no rebound, no masses, RECTAL: Deferred. GENITAL: Deferred. NEUROLOGICAL: Gross motor function intact sensory function intact, Appropriate for age. MUSCULOSKELETAL: low back nontender, full range of motion. EXTREMITIES: Nontender, full range of motion. SKIN: Color pink, dry, no rash, no lacerations, no abrasions, no contusions. LYMPHATICS: Deferred. Course Quality Measures none Orders Category Date Time Status COVID-19 Screening Questionnaire NOW Care 06/12/25 14:40 Active Decision to Admit X1 Care 06/12/25 14:40 Active EKG (ED ONLY) *Do not use* NOW Care 06/12/25 12:50 Completed Occult Blood,Stool (Nursing) ONCE Care 06/12/25 14:35 Active Consult to Gastroenterology Stat Cons 06/12/25 14:33 Ordered EKG (ED Only) Stat Exams 06/12/25 12:50 Draft XR chest 1V Stat Exams 06/12/25 12:49 Completed B-Type Natriuretic Peptide Stat Lab 06/12/25 13:11 Completed Blood Culture (Lab) Stat Lab 06/12/25 13:17 Received CBC Stat Lab 06/12/25 13:11 Completed Comprehensive Metabolic Panel Stat Lab 06/12/25 13:11 Completed Lactate (Lactic Acid) Stat Lab 06/12/25 13:11 Completed Magnesium Stat Lab 06/12/25 13:11 Completed Occult Blood, Stool (LAB) Stat Lab 06/12/25 14:35 Ordered Partial Thromboplastin Time Stat Lab 06/12/25 13:11 Completed Procalcitonin Stat Lab 06/12/25 13:11 Completed Prothrombin Time with INR Stat Lab 06/12/25 13:11 Completed Troponin I Stat Lab 06/12/25 13:11 Completed VBG [Venous Blood Gas] Stat Lab 06/12/25 13:11 Received Albuterol/Ipratr Rt Lizeth [Duoneb Rt Lizeth] Med 06/12/25 12:58 Discontinued 3 ml INH X1 ONE Dexamethasone Inj [Decadron Inj] Med 06/12/25 12:58 Discontinued 10 mg PO X1 ONE Levalbuterol Rt [Xopenex Rt Lizeth] Med 06/12/25 12:58 Discontinued 1.25 mg INH X1 ONE Pantoprazole Inj [Protonix Inj] Med 06/12/25 14:33 Discontinued 80 mg IVP X1 ONE Sodium Chloride Rt Lizeth 0.9% [NS Rt Lizeth 0.9%] Med 06/12/25 12:58 Active 3 ml INH PRN PRN Vital Signs Vital signs: Vital Signs Temperature 98.5 F 06/12/25 12:38 Pulse Rate 98 06/12/25 12:38 Respiratory Rate 21 H 06/12/25 12:38 Blood Pressure 170/84 H 06/12/25 12:38 Pulse Oximetry (%) 97 06/12/25 12:38 Oxygen Delivery Method Room Air 06/12/25 12:38 Shortness of Breath / Dyspnea MDM Narrative MDM Narrative:: 65-year-old female patient with significant history of asthma, hypertension COPD, was brought in by family for evaluation regarding shortness of breath. Patient has been having cough, shortness of breath, getting worse today, associated with wheezing, patient been using her albuterol breathing treatment with no relief. Patient denies any chest pain and coughing. Denies any fever. Denies any diaphoresis. Denies any abdominal pain. Patient is ambulatory. Patient was noted to be satting 97% on room air. Patient told me that he has been taking on and off tramadol for leg pain. Patient denies any vomiting blood or blood in the stool. I noticed patient's hemoglobin dropped from 10.6 to 8.1 in less than 3 weeks, I did a rectal exam, negative for blood. Stool however strong positive for occult blood. I personally reviewed and interpreted the x-ray of this patient. There is no acute abnormalities found, no infiltrates no pneumothorax no hemothorax normal chest x-ray. Review of other structures was without significant abnormal findings also. I additionally reviewed the radiologist report and agree with the interpretation. The rest of the labs unremarkable. Patient received Decadron IV, Xopenex, DuoNeb, and Protonix IV. Plan of care discussed with the patient including admission for further evaluation including endoscopy. Spoke with GI specialist on-call Dr. Fuentes, who agrees with me that patient is to be admitted for further evaluation regarding upper GI bleed Spoke with hospitalist who admitted the patient. Patient data External records reviewed:: None Clinical information provided by:: patient Social determinants that could affect healthcare access:: none Patient has the following chronic illnesses:: History of asthma How is presenting disease/condition affected by chronic disease/condition?: exacerbated by Evaluation data The following diagnostics were reviewed and interpreted by me:: lab results and radiology exam(s) Lab and/or radiology exams considered but not ordered:: None Interpretation Summary: See above Medications / Prescriptions Medications or Prescriptions considered but not ordered:: None Medication administrations:: Medication Administration History Sodium Chloride (Sodium Chloride Rt Lizeth 0.9% 3 Ml Nebu) 3 ml INH PRN PRN PRN Reason: SOLN Stop: 07/12/25 12:57 Last Admin: 06/12/25 13:22 Dose: 3 ml Documented By: EV Discontinued Medications Albuterol/Ipratropium (Albuterol/Ipratropium (Duoneb) Rt Lizeth 3 Ml Nebu) 3 ml INH X1 ONE Stop: 06/12/25 12:59 Last Admin: 06/12/25 13:21 Dose: 3 ml Documented By: EV Dexamethasone Sodium Phosphate (Dexamethasone Sod Phos Inj 10 Mg/Ml Vial) 10 mg PO X1 ONE Stop: 06/12/25 12:59 Last Admin: 06/12/25 13:24 Dose: 10 mg Documented By: DO Comments: GIVEN PO Levalbuterol HCl (Levalbuterol Rt 1.25 Mg/0.5 Ml Nebu) 1.25 mg INH X1 ONE Stop: 06/12/25 12:59 Last Admin: 06/12/25 13:22 Dose: 1.25 mg Documented By: EV Pantoprazole Sodium (Pantoprazole Inj 40 Mg Vial) 80 mg IVP X1 ONE Stop: 06/12/25 14:34 See above Consultations Consultation(s) initiated? (list below): No Diagnosis Shortness of Breath Differential Diagnosis: congestive heart failure, community acquired pneumonia and asthma with exacerbation Most likely diagnosis given after review of the tests above:: Asthma exacerbation, upper GI bleed Admission Indicated Admission indicated?: not indicated Admission Request Was there a request for admission?: Yes Admission Attestation Admission request attestation: Discussed case with [Dr. Irwin] from Hospitalist service regarding admission. Discussed patients ED course, exam findings, labs, and radiology results. The Hospitalist [agrees] to accept the patient for admission. Disposition Plan Disposition Plan: Admit Discharge Plan Plan Patient Disposition: Admit Acute Care w/in Hospital Discharge Disposition comment: Stable Prescriptions/Referrals Prescriptions/Med Rec: No Action azelastine 0.05 % drops 1 drp Both eyes BID carvedilol 3.125 mg tablet 3.125 mg PO BID 30 Days Qty: 60 0RF Rx Instructions: must administer with a meal/food losartan 50 mg tablet 50 mg PO QDAY Qty: 30 0RF atorvastatin [Lipitor] 80 mg tablet 80 mg PO HS Qty: 30 0RF clopidogrel 75 mg tablet 75 mg PO QDAY Qty: 30 0RF sertraline [Zoloft] 100 mg tablet 100 mg PO QDAY Qty: 30 0RF aspirin 81 mg tablet,delayed release (DR/EC) 81 mg PO QDAY Qty: 90 0RF fluticasone propion-salmeterol [Advair HFA] 230-21 mcg/actuation HFA aerosol inhaler 2 puff INHALATION BID Qty: 12 5RF Rx Instructions: Directions in Stateless albuterol sulfate [Ventolin HFA] 90 mcg/actuation HFA aerosol inhaler 2 puff inhalation Q6H PRN (Reason: shortness of breath or wheezing) Qty: 8.5 2RF Referrals: [facility] STORAGE GARAGE MANAGER,Tiff De Los Santos STORAGE GARAGE MANAGER [Primary Care Provider, Family Practice] - In 1 week Problem List Clinical Impression: Acute upper gastrointestinal bleeding, Asthma, Anemia Patient/Caregiver Discharge Instructions Print Language: Stateless Stand Alone Forms: Annita Award Info., Patient Portal Info Letter
[2025-06-12] MEDS: ALBUTEROL/IPRATROPIUM (Duoneb) RT SOL 3 ML NEBU INH ×3 (13:21→22:24)
[2025-06-12] MEDS: SODIUM CHLORIDE RT SOL 0.9% 3 ML NEBU INH (13:22)
[2025-06-12] MEDS: LEVALBUTEROL RT 1.25 MG/0.5 ML NEBU INH (13:22)
[2025-06-12] MEDS: DEXAMETHASONE SOD PHOS INJ 10 MG/ML VIAL PO (13:24)
[2025-06-12 13:31] LABS: Lactate (Lactic Acid) 1.3 mMol/L (0.4-2.0)
[2025-06-12 13:35] LABS: Basophils # (Auto) 0.1 Thou/mm3 (0.0-0.2); Basophils % (Auto) 1 % (0-2.5); Eosinophils # (Auto) 0.4 Thou/mm3 (0.0-0.5); Eosinophils % (Auto) 7 % (0-10); Hematocrit 26.5 % (36.0-46.0); Immature Granulocytes Auto 0.01 Thou/mm3 (0.00-0.00); Lymphocytes # (Auto) 1.5 Thou/mm3 (1.0-4.8); Lymphocytes % (Auto) 27 % (10-50); Mean Corpuscular HGB Conc 30.6 g/dl (31.0-37.0); Mean Corpuscular Hemoglobin 26.2 pg (25.0-35.0); Mean Corpuscular Volume 86 fL (80-100); Monocytes # (Auto) 0.8 Thou/mm3 (0.0-0.8); Monocytes % (Auto) 14 % (0-12); Neutrophils # (Auto) 2.8 Thou/mm3 (1.8-7.7); Neutrophils % (Auto) 51 % (37-80); Nucleated Red Blood Cell # 0.03 Thou/mm3 (0.00-0.00); Nucleated Red Blood Cell % 1 /100 WBC (0); Platelet Count 343 Thou/mm3 (140-440); RDW Standard Deviation 45.7 fL (36.4-46.3); Red Blood Count 3.09 Miln/mm3 (4.00-5.20); White Blood Count 5.5 Thou/mm3 (3.6-11.0)
[2025-06-12 13:37] LABS: Hemoglobin 8.1 g/dL (12.0-16.0)
[2025-06-12 13:51] LABS: INR 1.1 (0.9-1.3); Partial Thromboplastin Time 28.1 Seconds (22.0-36.0); Prothrombin Time 11.2 Seconds (9.0-12.2)
[2025-06-12 13:57] LABS: B-Type Natriuretic Peptide 21 pg/mL (0-100)
[2025-06-12 14:09] LABS: Alanine Aminotransferase < 7 U/L (10-49); Albumin, Serum 4.4 gm/dL (3.4-4.8); Albumin/Globulin Ratio 2.1 (1.2-2.2); Alkaline Phosphatase 86 U/L (46-116); Anion Gap 7 (7-16); Aspartate Amino Transferase 17 U/L (0-34); BUN/Creatinine Ratio 11 Ratio (12-20); Bilirubin,Total 0.5 mg/dL (0.3-1.2); Blood Urea Nitrogen 8 mg/dL (9-23); Calcium 9.0 mg/dL (8.3-10.6); Calcium (Corrected) 9.0 mg/dL (8.5-10.1); Carbon Dioxide 27.9 mMol/L (20.0-31.0); Chloride 107 mMol/L (98-107); Creatinine (Component) 0.7 mg/dL (0.6-1.3); Estimated Creatinine Clearance 91.3 mL/min (>60); Globulin 2.1 gm/dL (2.3-3.5); Glucose 108 mg/dL (74-106); Magnesium 1.8 mg/dL (1.6-2.6); Osmolality,Calculated 282 (275-295); Potassium 3.8 mMol/L (3.4-5.1); Procalcitonin < 0.04 ng/ml (0.0-0.49); Sodium 142 mMol/L (136-145); Total Protein 6.5 gm/dL (5.7-8.2); Troponin I < 0.020 ng/mL (0.0-0.045); eGFR > 60 See Note
[2025-06-12 14:58] LABS: OBS QC OK? Yes; Occult Blood, Stool Positive (Negative)
[2025-06-12 15:00] LABS: PCO2, Venous 41 mmHg (36-56); pH, Venous 7.43 (7.33-7.66)
[2025-06-12 15:01] LABS: Base Excess, Venous 2 (-3-3); O2 Saturation, Venous 88 % (96-97); PO2, Venous 51 mmHg (15-58)
--- NOTE | 2025-06-12 15:43 | PC.SS ---
Patient Cici Fairchild is a 65 Year old female admitted for SOB X3 days. SS conducted bedside contact with the patient conduct initial assessment and to discuss discharge planning.? Patient report she resides at home with family patient reports surrogate decision maker is her daugher, Елена Fields .?? Patient does utilize a cane to assist with ambulation? Patient does not utilize home oxygen.? Patient describes the ability to complete ADL?s independently. ? Patient?s PCP is Tosin Guardado.?Plan is for the patient to return home at the time of discharge.? If home health recommended no preferred agency identified.? Family will provide transportation on behalf of the patient.? No further discharge needs identified by the patient.? No further intervention required at this time, social services aide will be available to address any further concerns.? Next of Kin: Елена Fields D/C Plan: Home PCP Tiff Guardado
--- NOTE | 2025-06-12 15:52 | PD.RESHP ---
Documentation for date of: 06/12/25 HPI History of Present Illness Chief complaint: Asthma exacerbation History of present illness: 65 y/o F with PMHx significant for asthma, HTN, CVA without residual deficits, osteopenia presented to ED from home with chief complaint of persistent asthma exacerbation not relieved with home albuterol. Patient states for the past 5 days she has had persistent wheezing with mild shortness of breath, worse on exertion, has not been resolved spite taking her home albuterol. Patient received treatment in ED, with significant improvement in symptoms. However patient was found to have decrease in hemoglobin over past 3 weeks from 10.5-8.1. FOBT positive in ED, Dr. Fuentes was consulted, recommend admission for inpatient colonoscopy as patient has difficulty arranging outpatient colonoscopy. Patient denies chest pain, nausea, vomiting, fever, chills, cough, sputum production. ED COURSE: Labs significant for: WBC 5.5, hemoglobin 8.1, VBG showing pH 7.43, pCO2 41. FOBT positive. Imaging significant for: Chest x-ray unremarkable. Patient received DuoNebs, IV Protonix, p.o. steroids in the ED. PMH: HTN, CVA, asthma, osteopenia SH: Denies alcohol, tobacco, illicit drug use. Allergies:?NKDA Medications: Aspirin, Plavix, atorvastatin, Coreg, losartan, sertraline, albuterol, fluticasone/salmeterol Review of Systems Review of Systems Systems Reviewed: All systems reviewed, normal except as documented Exam Vital Signs Temp Pulse Resp BP Pulse Ox O2 Del Method 98.5 F 72 18 170/84 H 100 Room Air 06/12/25 12:38 06/12/25 13:26 06/12/25 13:26 06/12/25 12:38 06/12/25 13:26 06/12/25 12:38 Narrative Exam PE: Gen: Well-developed and well-nourished. No acute distress. HEENT: NCAT, PERRLA, EOMI, MMM, anicteric conjunctivae. CVS: normal S1 and S2. RRR. No M/R/G. Resp: CTA B/L. No rhonchi, rales, crackles. Mild diffuse wheezing. Abd: soft, non-tender, non-distended. BS+ in all 4 quadrants. MSK: Good ROM in BUE & BLE. No edema or rash. Neuro: CN II-XII grossly intact. Strength 5/5 in BUE & BLE. Alert and oriented x3. Psych: appropriate mood and affect. Results: Labs 06/13/25 08:21 06/13/25 08:21 Labs: Short CBC 06/12/25 Range/Units 13:11 WBC 5.5 (3.6-11.0) Thou/mm3 Hgb 8.1 L (12.0-16.0) g/dL Hct 26.5 L (36.0-46.0) % Plt Count 343 D (140-440) Thou/mm3 BMP 06/12/25 13:11 Sodium 142 Potassium 3.8 Chloride 107 Carbon Dioxide 27.9 BUN 8 L Creatinine 0.7 Glucose 108 H Calcium 9.0 Cardiac Enzymes 06/12/25 Range/Units 13:11 Troponin I < 0.020 (0.0-0.045) ng/mL Liver Function 06/12/25 Range/Units 13:11 Total Bilirubin 0.5 (0.3-1.2) mg/dL AST 17 (0-34) U/L ALT < 7 L (10-49) U/L Alkaline Phosphatase 86 (46-116) U/L Albumin 4.4 (3.4-4.8) gm/dL ABG Interpretation ABG results: 06/12/25 13:11 VBG pH 7.43 VBG pCO2 41 VBG pO2 51 VBG Base Excess 2 Quality Measures Quality Measures VTE prophylaxis Advance care planning discussed with:: patient Medications Home Medications and Allergies Home Medications ?Medication ?Instructions ?Recorded ?Confirmed ?Type azelastine 0.05 % eye drops 1 drp Both eyes BID 05/25/25 06/12/25 History aspirin 81 mg tablet,delayed 81 mg PO HS 06/12/25 06/12/25 History release Allergies Allergy/AdvReac Type Severity Reaction Status Date / Time No Known Allergies Allergy Verified 06/12/25 12:32 Visit Medications Acetaminophen (Acetaminophen 325 Mg Tablet) 650 mg PO Q6H PRN PRN Reason: Fever >100.4 or pain Stop: 07/12/25 15:25 Albuterol/Ipratropium (Albuterol/Ipratropium (Duoneb) Rt Lizeth 3 Ml Nebu) 3 ml INH Q2HR PRN PRN Reason: SHORTNESS OF BREATH OR WHEEZE Stop: 07/12/25 15:25 Albuterol/Ipratropium (Albuterol/Ipratropium (Duoneb) Rt Lizeth 3 Ml Nebu) 3 ml INH Q4HRRT RAZA Stop: 07/12/25 18:59 Carvedilol (Carvedilol 3.125 Mg Tablet) 3.125 mg PO BIDWM RAZA Stop: 07/12/25 17:29 Enoxaparin Sodium (Enoxaparin Sod Inj 40 Mg/0.4 Ml Syringe) 40 mg SC QDAY [facility] Stop: 06/27/25 08:59 Losartan Potassium (Losartan Potassium 25 Mg Tablet) 50 mg PO QDAY [facility] Stop: 07/13/25 08:59 Ondansetron HCl (Ondansetron Inj 2 Mg/Ml Inj 2 Ml) 4 mg IVP Q6H PRN; Protocol PRN Reason: NAUSEA OR VOMITING Stop: 07/12/25 15:25 Pantoprazole Sodium (Pantoprazole 40 Mg Tablet) 40 mg PO QDAY [facility] Stop: 07/13/25 08:59 Prednisone (Prednisone 20 Mg Tablet) 40 mg PO QDAY RAZA Stop: 06/17/25 08:59 Sertraline HCl (Sertraline Hcl 25 Mg Tablet) 100 mg PO HS [facility] Stop: 07/12/25 20:59 Sodium Chloride (Sodium Chloride Rt Lizeth 0.9% 3 Ml Nebu) 3 ml INH PRN PRN PRN Reason: SOLN Stop: 07/12/25 12:57 Last Admin: 06/12/25 13:22 Dose: 3 ml Discontinued Medications Albuterol/Ipratropium (Albuterol/Ipratropium (Duoneb) Rt Lizeth 3 Ml Nebu) 3 ml INH X1 ONE Stop: 06/12/25 12:59 Last Admin: 06/12/25 13:21 Dose: 3 ml Dexamethasone Sodium Phosphate (Dexamethasone Sod Phos Inj 10 Mg/Ml Vial) 10 mg PO X1 ONE Stop: 06/12/25 12:59 Last Admin: 06/12/25 13:24 Dose: 10 mg Levalbuterol HCl (Levalbuterol Rt 1.25 Mg/0.5 Ml Nebu) 1.25 mg INH X1 ONE Stop: 06/12/25 12:59 Last Admin: 06/12/25 13:22 Dose: 1.25 mg Pantoprazole Sodium (Pantoprazole Inj 40 Mg Vial) 80 mg IVP X1 ONE Stop: 06/12/25 14:34 Assessment & Plan Plan 65 y/o F with PMHx significant for asthma, HTN, CVA without residual deficits, osteopenia presented to ED from home with chief complaint of persistent asthma exacerbation not relieved with home albuterol, found to have anemia with positive FOBT, admitted for colonoscopy. #GI bleed #Acute on chronic anemia Patient found to have anemia decreased hemoglobin from 10.5-8.1 over past 3 weeks. FOBT test positive. Patient mated for inpatient colonoscopy to [facility] for GI bleed. - Protonix IV - GI consulted, appreciate recommendations - Plan for EGD tomorrow - Monitor H&H, transfuse as needed #Asthma exacerbation Patient presented with chief complaint of shortness of breath, wheezing, not relieved with home albuterol. Patient symptoms improved after breathing treatment and p.o. steroids in the ED. Saturating well on room air. Wheezing on exam. - DuoNebs every 2 hours as needed and every 4 hour scheduled - Prednisone 40 mg p.o. daily #CVA without residual deficits, patient history Patient history as stated. - Holding home aspirin/Plavix in setting of GI bleed, resume when appropriate #HTN, patient history #Depression, patient history Patient history as stated. Blood pressure elevated in the ED. - Resume home Coreg 3.25 mg p.o. twice daily - Resume home sertraline 100 mg p.o. daily DVT prophylaxis: SCDs GI prophylaxis: Protonix Diet: Clear liquid Lines: Peripheral IV Code status: Full code Plan of care discussed with attending Dr. Adams. Jose Mckay MD PGY?2 Attending Provider Attestation/Addendum I have seen and examined the patient. I was physically present for the reyes portions of the services provided including history, physical exam, diagnosis, treatment plans and orders. I agree with assessment and plan of care as documented by residents. After examination of the patient and review of the clinical data I feel that this patient needs admission to the hospital for further treatment/evaluation. Even though this this note was carefully revised there may still be minor errors in self pay collector due to voice recognition software. Lencho Adams MD
--- NOTE | 2025-06-12 16:16 | PD.IMCONS ---
HPI Data of Consult Primary Care Provider: Tiff Guardado NP Consult Narrative Reason for consult: Dropping hemoglobin hematocrit FOBT positive History of present illness: 65 years old female evaluated at the request of the [employer] for dropping hemoglobin hematocrit and FOBT positive patient presented with shortness of breath and acute exacerbation of the underlying bronchial asthma On 05/12/2025 patient's hemoglobin hematocrit was 11.9 and 37.6 today it is 8.1 and 28.5 Platelet count is 63,000 cc:: cc: Review of Systems Review of Systems Systems Reviewed: All systems reviewed, normal except as documented Meds Home Medications and Allergies Home Medications ?Medication ?Instructions ?Recorded ?Confirmed ?Type azelastine 0.05 % eye drops 1 drp Both eyes BID 05/25/25 06/09/25 History Allergies Allergy/AdvReac Type Severity Reaction Status Date / Time No Known Allergies Allergy Verified 06/12/25 12:32 Exam Vital Signs Temp Pulse Resp BP Pulse Ox O2 Del Method 98.8 F 82 18 166/93 H 197 H Room Air 06/12/25 16:04 06/12/25 16:09 06/12/25 16:04 06/12/25 16:04 06/12/25 16:04 06/12/25 16:04 Constitutional Comments: Chronically ill-appearing Routine Respiratory Exam Comments: Normal to auscultation Routine Abdominal Exam Comments: Soft nontender Results Labs 06/12/25 13:11 06/12/25 13:11 Labs: Short CBC 06/12/25 Range/Units 13:11 WBC 5.5 (3.6-11.0) Thou/mm3 Hgb 8.1 L (12.0-16.0) g/dL Hct 26.5 L (36.0-46.0) % Plt Count 343 D (140-440) Thou/mm3 BMP 06/12/25 13:11 Sodium 142 Potassium 3.8 Chloride 107 Carbon Dioxide 27.9 BUN 8 L Creatinine 0.7 Glucose 108 H Calcium 9.0 Cardiac Enzymes 06/12/25 Range/Units 13:11 Troponin I < 0.020 (0.0-0.045) ng/mL Liver Function 06/12/25 Range/Units 13:11 Total Bilirubin 0.5 (0.3-1.2) mg/dL AST 17 (0-34) U/L ALT < 7 L (10-49) U/L Alkaline Phosphatase 86 (46-116) U/L Albumin 4.4 (3.4-4.8) gm/dL ABG Interpretation ABG results: 06/12/25 13:11 VBG pH 7.43 VBG pCO2 41 VBG pO2 51 VBG Base Excess 2 Assessment and Plan Additional Assessment & Plan Additional Plan: # FOBT positive # GI bleeding with significant drop in hemoglobin hematocrit plan Iron panel Iron saturation B12 folate level Reticulocyte count N.p.o. midnight tonight Consent obtained for fiberoptic esophagogastroduodenoscopy with possible biopsy possible therapeutic intervention under intravenous moderate sedation IV Protonix Will follow the patient Thank you very much for the opportunity to participate in care of this patient
[2025-06-12] MEDS: ACETAMINOPHEN 325 MG TABLET 650 MG PO (20:30)
[2025-06-12] MEDS: ATORVASTATIN CALCIUM 20 MG TABLET 80 MG PO (20:44)
[2025-06-13] VITALS (20 sets, daily range): BP systolic 148–157; BP diastolic 60–95; PULSE 71–94; RESP 14–99; TEMP 36.4–36.8; O2SAT 92–153
--- NOTE | 2025-06-13 00:28 | PC.NURSE ---
Dr. Null notified regarding patient complaining of pulsating headache. She was also made aware of patient having a recent minor stroke. stated that they will come assess patient. Will continue to closely monitor patient.
[2025-06-13] MEDS: ACETAMINOPHEN IVPB 1,000 MG/100 ML VIAL 250 MG IV ×3 (00:49→12:19)
[2025-06-13] MEDS: ALBUTEROL/IPRATROPIUM (Duoneb) RT SOL 3 ML NEBU INH ×6 (02:23→23:12)
[2025-06-13] MEDS: guaiFENesin SYRUP 200 MG/10 ML UDC 100 MG PO ×2 (06:08→22:39)
[2025-06-13] MEDS: HYDROcodone/APAP 5/325 TABLET 1 TAB PO (07:21)
[2025-06-13 08:55] LABS: Basophils # (Auto) 0.0 Thou/mm3 (0.0-0.2); Basophils % (Auto) 0 % (0-2.5); Eosinophils # (Auto) 0.0 Thou/mm3 (0.0-0.5); Eosinophils % (Auto) 0 % (0-10); Hematocrit 26.8 % (36.0-46.0); Immature Granulocytes Auto 0.04 Thou/mm3 (0.00-0.00); Immature Reticulocyte Fraction 33.1 % (3.0-15.9); Lymphocytes # (Auto) 1.1 Thou/mm3 (1.0-4.8); Lymphocytes % (Auto) 14 % (10-50); Mean Corpuscular HGB Conc 30.6 g/dl (31.0-37.0); Mean Corpuscular Hemoglobin 25.6 pg (25.0-35.0); Mean Corpuscular Volume 84 fL (80-100); Monocytes # (Auto) 0.7 Thou/mm3 (0.0-0.8); Monocytes % (Auto) 8 % (0-12); Neutrophils # (Auto) 6.2 Thou/mm3 (1.8-7.7); Neutrophils % (Auto) 77 % (37-80); Nucleated Red Blood Cell # 0.00 Thou/mm3 (0.00-0.00); Nucleated Red Blood Cell % 0 /100 WBC (0); Platelet Count 373 Thou/mm3 (140-440); RDW Standard Deviation 44.1 fL (36.4-46.3); Red Blood Count 3.20 Miln/mm3 (4.00-5.20); Reticulocyte % (Auto) 3.8 % (0.5-1.5); Reticulocyte Absolute Auto 120.6 Biln/L (25.0-75.0); Reticulocyte Hgb Content 22.9 pg (28.0-35.0); White Blood Count 8.0 Thou/mm3 (3.6-11.0)
[2025-06-13 08:56] LABS: Hemoglobin 8.2 g/dL (12.0-16.0)
[2025-06-13] MEDS: SERTRALINE HCL 25 MG TABLET 100 MG PO (09:01)
[2025-06-13] MEDS: LOSARTAN POTASSIUM 25 MG TABLET 50 MG PO (09:01)
[2025-06-13 09:24] LABS: Anion Gap 12 (7-16); BUN/Creatinine Ratio 11 Ratio (12-20); Blood Urea Nitrogen 8 mg/dL (9-23); Calcium 8.9 mg/dL (8.3-10.6); Carbon Dioxide 22.5 mMol/L (20.0-31.0); Chloride 105 mMol/L (98-107); Creatinine (Component) 0.7 mg/dL (0.6-1.3); Estimated Creatinine Clearance 91.3 mL/min (>60); Glucose 133 mg/dL (74-106); Osmolality,Calculated 277 (275-295); Potassium 3.7 mMol/L (3.4-5.1); Sodium 139 mMol/L (136-145); eGFR > 60 See Note
[2025-06-13 09:28] LABS: Iron 12 mcg/dL (50-170); Percent Iron Saturation 3 % (20-55); Total Iron Binding Capacity 353 mcg/dL (250-425); Unsaturated Iron Binding 341 (225-295)
--- NOTE | 2025-06-13 10:49 | CHAP ---
Addendum entered by Geraldo Waller 06/14/25 11:13: When he patient was visited by the Spiritual Care Volunteer on Saturday a request was made for a production operator to come. Apparently that did take place. Original Note: Patient was visited by the Spiritual Care Volunteer who prayed for them. (Volunteer was in the hospital from 09:42-10:49).
[2025-06-13 11:47] LABS: Ferritin 14 ng/mL (7.3-270.7)
--- NOTE | 2025-06-13 14:38 | PC.SS ---
Rounding: pending EDG
--- NOTE | 2025-06-13 14:56 | ESPR_ITS ---
<Statement entered by Jose Mckay MD - 06/13/25 16:50> Patient seen and examined at bedside. I discussed and supervised with the automotive internet sales consultant physician who took care of this patient. I personally saw and examined the patient. I agree with most of the assessment and plan. Plan of care discussed with attending Dr. Adams. Jose Mckay MD PGY-2 Documentation for date of: 06/13/25 Subjective Subjective Interval history: Patient was seen and examined at bedside. No acute events took place overnight. Patient having nosebleeds with headaches for which received [place]. Has not had bowel movement overnight. Admits to pain in the right flank and right upper quadrant. No shortness of breath and no need for supplemental O2. Exam Vital Signs Temp Pulse Resp BP Pulse Ox O2 Del Method 98.0 F 88 17 154/76 H 96 Room Air 06/13/25 12:00 06/13/25 12:00 06/13/25 12:00 06/13/25 12:00 06/13/25 12:00 06/13/25 12:00 Narrative Exam Gen: Well-developed and well-nourished. No acute distress. HEENT: NCAT, PERRLA, EOMI, MMM, anicteric conjunctivae. CVS: normal S1 and S2. RRR. No M/R/G. Resp: CTA B/L. No rhonchi, rales, crackles. Mild diffuse wheezing. Abd: soft, non-tender, non-distended. BS+ in all 4 quadrants. MSK: Good ROM in BUE & BLE. No edema or rash. Neuro: CN II-XII grossly intact. Strength 5/5 in BUE & BLE. Alert and oriented x3. Psych: appropriate mood and affect. Objective Labs 06/15/25 04:56 06/15/25 04:56 Labs: Laboratory Results - last 24 hr 06/12/25 06/12/25 06/13/25 13:11 14:30 08:21 WBC 8.0 D RBC 3.20 L Hgb 8.2 L Hct 26.8 L MCV 84 MCH 25.6 MCHC 30.6 L RDW Std Deviation 44.1 Plt Count 373 D Neut % (Auto) 77 Lymph % (Auto) 14 Brantley % (Auto) 8 Eos % (Auto) 0 Baso % (Auto) 0 Neut # (Auto) 6.2 Lymph # (Auto) 1.1 Brantley # (Auto) 0.7 Eos # (Auto) 0.0 Baso # (Auto) 0.0 Immature Gran # (Auto) 0.04 H Absolute Nucleated RBC 0.00 Immature Gran % 1 H Nucleated RBC % 0 Retic Count (auto) 3.8 H Absolute Retic 120.6 H Immature Retic Fraction 33.1 H Retic Hgb Content CHr 22.9 L VBG pH 7.43 VBG pCO2 41 VBG pO2 51 VBG O2 Sat (Binta) 88 L VBG Base Excess 2 Sodium 139 Potassium 3.7 Chloride 105 Carbon Dioxide 22.5 Anion Gap 12 BUN 8 L Creatinine 0.7 Estim Creat Clear Calc 91.3 eGFR > 60 BUN/Creatinine Ratio 11 L Glucose 133 H Calculated Osmolality 277 Calcium 8.9 Iron 12 L TIBC 353 Iron Saturation 3 L Unsat Iron Binding 341 H Ferritin 14 Stool Occult Blood Positive A ABG Interpretation ABG results: 06/12/25 13:11 VBG pH 7.43 VBG pCO2 41 VBG pO2 51 VBG Base Excess 2 Quality Measures Quality Measures VTE prophylaxis Advance care planning discussed with:: patient Assessment & Plan Assessment Current Active Medications: Generic Name Dose Route Start Last Admin Trade Name Freq PRN Reason Stop Dose Admin Acetaminophen 650 mg 06/12/25 15:26 06/12/25 20:30 Acetaminophen 325 Mg Tablet PO 07/12/25 15:25 650 mg On Hold: 06/13/25 12:13 Q6H PRN Administration Comment: RAZA IV APAP ORDER Fever >100.4 or pain PLACED Albuterol/Ipratropium 3 ml 06/12/25 15:26 Albuterol/Ipratropium (Duoneb) Rt Lizeth 3 Ml Nebu INH 07/12/25 15:25 Q2HR PRN SHORTNESS OF BREATH OR WHEEZE Albuterol/Ipratropium 3 ml 06/12/25 19:00 06/13/25 10:36 Albuterol/Ipratropium (Duoneb) Rt Lizeth 3 Ml Nebu INH 07/12/25 18:59 3 ml Q4HRRT RAZA Administration Atorvastatin Calcium 80 mg 06/12/25 21:00 06/12/25 20:44 Atorvastatin Calcium 20 Mg Tablet PO 07/12/25 20:59 80 mg HS RAZA Administration Carvedilol 3.125 mg 06/12/25 17:30 06/13/25 07:21 Carvedilol 3.125 Mg Tablet PO 07/12/25 17:29 3.125 mg BIDWM RAZA Administration Acetaminophen 1,000 mg in 100 mls @ 250 mls/hr 06/13/25 00:36 06/13/25 12:19 Ofirmev Inj IV 06/13/25 18:23 250 mls/hr Q6HR RAZA Administration Losartan Potassium 50 mg 06/13/25 09:00 06/13/25 09:01 Losartan Potassium 25 Mg Tablet PO 07/13/25 08:59 50 mg QDAY RAZA Administration Ondansetron HCl 4 mg 06/12/25 15:26 Ondansetron Inj 2 Mg/Ml Inj 2 Ml IVP 07/12/25 15:25 Q6H PRN NAUSEA OR VOMITING Protocol Pantoprazole Sodium 40 mg 06/13/25 09:00 06/13/25 09:01 Pantoprazole Inj 40 Mg Vial IVP 07/13/25 08:59 40 mg BID RAZA Administration Fluticasone/Salmeterol 1 puff 06/13/25 09:00 Fluticasone/Salmeterol 500/50 60 Dose Inh INH 07/13/25 08:59 BID RAZA Protocol Sertraline HCl 100 mg 06/13/25 09:00 06/13/25 09:01 Sertraline Hcl 25 Mg Tablet PO 07/13/25 08:59 100 mg DAILY RAZA Administration Sodium Chloride 3 ml 06/12/25 12:58 06/12/25 13:22 Sodium Chloride Rt Lizeth 0.9% 3 Ml Nebu INH 07/12/25 12:57 3 ml PRN PRN Administration SOLN Plan 65 y/o F with PMHx significant for asthma, HTN, CVA without residual deficits, osteopenia presented to ED from home with chief complaint of persistent asthma exacerbation not relieved with home albuterol, found to have anemia with positive FOBT, admitted for colonoscopy. #GI bleed #Acute on chronic anemia Patient found to have anemia decreased hemoglobin from 10.5-8.1 over past 3 weeks. FOBT test positive. Patient mated for inpatient colonoscopy to eval for GI bleed. Iron 12L, TIBC 353, iron sat 3 L, unsat iron binding 341, ferritin 14, reticulocytosis 3.8% H Plan: - Protonix IV - GI consulted, appreciate recommendations - Pending EGD today; patient has been NPO since midnight. - Monitor H&H, transfuse as needed #Asthma exacerbation Patient presented with chief complaint of shortness of breath, wheezing, not relieved with home albuterol. Patient symptoms improved after breathing treatment and p.o. steroids in the ED. Saturating well on room air. Wheezing on exam. - DuoNebs every 2 hours as needed and every 4 hour scheduled #CVA without residual deficits, patient history Patient history as stated. - Holding home aspirin/Plavix in setting of GI bleed, resume when appropriate #HTN, patient history #Depression, patient history Patient history as stated. Blood pressure elevated in the ED. - Resume home Coreg 3.25 mg p.o. twice daily - Resume home sertraline 100 mg p.o. daily DVT prophylaxis: SCDs GI prophylaxis: Protonix Diet: Clear liquid Lines: Peripheral IV Code status: Full code This case was discussed with my attending physician, Dr. Adams, and senior resident, Dr Mckay. Even though this this note was carefully revised there may still be minor errors in crop production advisor due to voice recognition software. Kailee Cruz DO PGY I Attending Provider Attestation/Addendum I have seen and examined the patient. I was physically present for the reyes portions of the services provided including history, physical exam, diagnosis, treatment plans and orders. I agree with assessment and plan of care as documented by residents. Even though this this note was carefully revised there may still be minor errors in crop production advisor due to voice recognition software. Lencho Adams MD
--- NOTE | 2025-06-13 16:25 | SUR.PHASEI ---
Arrived to recovery [facility] via [facility]. Report received from Rosa BERKOWITZ and Dr. Berry. Resting with eyes open. No c/o pain or discomfort. No s/o distress. Responding to questions and commands appropriately.
--- NOTE | 2025-06-13 16:44 | SUR.PHASEI ---
Taken to room 355 via gurney. Resting with eyes open, Able to ambulated to bed and made comfortable. Niece at bedside speaking with patient. No s/o distress or discomfort. Call light in hand.
[2025-06-13] MEDS: NA SU/NAHCO3/KC/PEG (Golytely) 4,000 ML BTL 4000 ML PO (17:40)
[2025-06-13 19:31] LABS: Vitamin B12 1125 pg/mL (211-911)
[2025-06-13] MEDS: ATORVASTATIN CALCIUM 20 MG TABLET 80 MG PO (21:36)
[2025-06-13] MEDS: ONDANSETRON INJ 2 MG/ML INJ 2 ML 4 MG IVP (22:32)
[2025-06-13] MEDS: FLUTICASONE/SALMETEROL 500/50 60 DOSE INH 1 PUFF INH (23:13)
[2025-06-14] VITALS (23 sets, daily range): BP systolic 93–194; BP diastolic 53–113; PULSE 71–101; RESP 14–99; TEMP 36.2–36.7; O2SAT 91–100
[2025-06-14] MEDS: ALBUTEROL/IPRATROPIUM (Duoneb) RT SOL 3 ML NEBU INH ×4 (02:19→15:10)
[2025-06-14] MEDS: FLUTICASONE/SALMETEROL 500/50 60 DOSE INH 1 PUFF INH ×2 (06:15→19:04)
[2025-06-14 06:18] LABS: Basophils # (Auto) 0.1 Thou/mm3 (0.0-0.2); Basophils % (Auto) 1 % (0-2.5); Eosinophils # (Auto) 0.1 Thou/mm3 (0.0-0.5); Eosinophils % (Auto) 1 % (0-10); Hematocrit 25.3 % (36.0-46.0); Immature Granulocytes Auto 0.02 Thou/mm3 (0.00-0.00); Lymphocytes # (Auto) 2.3 Thou/mm3 (1.0-4.8); Lymphocytes % (Auto) 27 % (10-50); Mean Corpuscular HGB Conc 30.8 g/dl (31.0-37.0); Mean Corpuscular Hemoglobin 26.4 pg (25.0-35.0); Mean Corpuscular Volume 86 fL (80-100); Monocytes # (Auto) 1.0 Thou/mm3 (0.0-0.8); Monocytes % (Auto) 11 % (0-12); Neutrophils # (Auto) 5.1 Thou/mm3 (1.8-7.7); Neutrophils % (Auto) 60 % (37-80); Nucleated Red Blood Cell # 0.00 Thou/mm3 (0.00-0.00); Nucleated Red Blood Cell % 0 /100 WBC (0); Platelet Count 334 Thou/mm3 (140-440); RDW Standard Deviation 46.7 fL (36.4-46.3); Red Blood Count 2.96 Miln/mm3 (4.00-5.20); White Blood Count 8.6 Thou/mm3 (3.6-11.0)
[2025-06-14 06:48] LABS: Hemoglobin 7.8 g/dL (12.0-16.0)
[2025-06-14 06:52] LABS: Alanine Aminotransferase < 7 U/L (10-49); Albumin, Serum 4.4 gm/dL (3.4-4.8); Albumin/Globulin Ratio 2.1 (1.2-2.2); Alkaline Phosphatase 72 U/L (46-116); Anion Gap 12 (7-16); Aspartate Amino Transferase 14 U/L (0-34); BUN/Creatinine Ratio 15 Ratio (12-20); Bilirubin,Total 0.6 mg/dL (0.3-1.2); Blood Urea Nitrogen 12 mg/dL (9-23); Calcium 9.0 mg/dL (8.3-10.6); Calcium (Corrected) 9.0 mg/dL (8.5-10.1); Carbon Dioxide 25.9 mMol/L (20.0-31.0); Chloride 106 mMol/L (98-107); Creatinine (Component) 0.8 mg/dL (0.6-1.3); Estimated Creatinine Clearance 79.9 mL/min (>60); Globulin 2.1 gm/dL (2.3-3.5); Glucose 99 mg/dL (74-106); Magnesium 2.0 mg/dL (1.6-2.6); Osmolality,Calculated 286 (275-295); Phosphorous 3.7 mg/dL (2.4-5.1); Potassium 3.5 mMol/L (3.4-5.1); Sodium 144 mMol/L (136-145); Total Protein 6.5 gm/dL (5.7-8.2); eGFR > 60 See Note
[2025-06-14] MEDS: SERTRALINE HCL 25 MG TABLET 100 MG PO (08:49)
[2025-06-14] MEDS: LOSARTAN POTASSIUM 25 MG TABLET 50 MG PO (08:50)
[2025-06-14] MEDS: POTASSIUM CHL 10 mEq IVPB 10 MEQ/100 ML BAG 100 MEQ IV ×4 (08:52→15:10)
--- NOTE | 2025-06-14 09:04 | PC.SS ---
Follow up note: Colonoscopy pending. Pt will return home upon dc.
--- NOTE | 2025-06-14 10:46 | ESPR_ITS ---
<Statement entered by Garfield Selby MD - 06/14/25 18:45> Patient was seen and examined at bedside. I agree on the assessment and plan on this note as documented by resident Dr Vanna Quigley DO PGY1. 65-year-old female admitted for GI bleed workup, scheduled for colonoscopy today underwent colonoscopy successfully which showed grade 2 internal hemorrhoids which were banded. Patient is post colonoscopy, currently stable we will resume home dose Plavix, aspirin is not indicated per neurology note which was reviewed from previous admission, patient on DAPT for 21 days per neuro recs which have completed, anticipate discharge in the next 24 hours Case discussed with attending Dr. Jackie Castano MD PGY-2 Documentation for date of: 06/14/25 Subjective Subjective Interval history: EGD(06/13/2025): Showed gastritis. Normal esophagus and normal duodenum. Colonoscopy(06/14/2025) showed grade 2 internal hemorrhoids, otherwise normal colon. Patient has no problem in breathing and minimal abdominal pain. No Overnight events. Labs reviewed and patient examined at the bedside. Denies chest pain, palpation, SOB, N/V, fevers or chills. Exam Vital Signs Temp Pulse Resp BP Pulse Ox O2 Del Method 97.2 F 77 18 135/72 H 99 Room Air 06/14/25 07:14 06/14/25 10:15 06/14/25 10:15 06/14/25 08:51 06/14/25 10:15 06/14/25 07:14 Narrative Exam General: No acute distress, well nourished, AAO x3 Eye: PERRL, EOMI, normal conjunctiva, no scleral icterus HENT: Normocephalic, atraumatic, hearing intact to conversation at normal volume, moist oral mucosa Neck: Supple, non-tender, no JVD, no lymphadenopathy Lungs: Non-labored respirations, symmetric chest rise, Clear to auscultate bilaterally, No wheezing, rhonchi, crackles Heart: Peripheral pulses intact bilaterally, Regular Rate and Rhythm. Abdomen: Soft, non-tender, non-distended, no palpable masses Musculoskeletal: Normal range of motion and strength, No cyanosis or edema, No visible joint swelling Skin: Skin is warm, dry, no rashes or lesions. Psychiatric: Cooperative, appropriate mood and affect, Awake and alert, not agitated Neuro: Cranial nerves II-XII grossly intact. Strength 5/5 throughout. Sensations intact to light touch. Objective Labs 06/15/25 04:56 06/15/25 04:56 Labs: Laboratory Results - last 24 hr 06/13/25 06/14/25 08:21 05:47 WBC 8.6 RBC 2.96 L Hgb 7.8 L Hct 25.3 L MCV 86 MCH 26.4 MCHC 30.8 L RDW Std Deviation 46.7 H Plt Count 334 D Neut % (Auto) 60 Lymph % (Auto) 27 [place] % (Auto) 11 Eos % (Auto) 1 Baso % (Auto) 1 Neut # (Auto) 5.1 Lymph # (Auto) 2.3 [place] # (Auto) 1.0 H Eos # (Auto) 0.1 Baso # (Auto) 0.1 Immature Gran # (Auto) 0.02 H Absolute Nucleated RBC 0.00 Immature Gran % 0 Nucleated RBC % 0 Sodium 144 Potassium 3.5 Chloride 106 Carbon Dioxide 25.9 Anion Gap 12 BUN 12 Creatinine 0.8 Estim Creat Clear Calc 79.9 eGFR > 60 BUN/Creatinine Ratio 15 Glucose 99 Calculated Osmolality 286 Calcium 9.0 Corrected Calcium 9.0 Phosphorus 3.7 Magnesium 2.0 Ferritin 14 Total Bilirubin 0.6 AST 14 ALT < 7 L Alkaline Phosphatase 72 Total Protein 6.5 Albumin 4.4 Globulin 2.1 L Albumin/Globulin Ratio 2.1 Vitamin B12 1125 H ABG Interpretation ABG results: 06/12/25 13:11 VBG pH 7.43 VBG pCO2 41 VBG pO2 51 VBG Base Excess 2 Quality Measures Quality Measures VTE prophylaxis Advance care planning discussed with:: patient and other Assessment & Plan Assessment Current Active Medications: Generic Name Dose Route Start Last Admin Trade Name Freq PRN Reason Stop Dose Admin Acetaminophen 650 mg 06/12/25 15:26 06/12/25 20:30 Acetaminophen 325 Mg Tablet PO 07/12/25 15:25 650 mg Q6H PRN Administration Fever >100.4 or pain Albuterol/Ipratropium 3 ml 06/12/25 15:26 Albuterol/Ipratropium (Duoneb) Rt Lizeth 3 Ml Nebu INH 07/12/25 15:25 Q2HR PRN SHORTNESS OF BREATH OR WHEEZE Atorvastatin Calcium 80 mg 06/12/25 21:00 06/13/25 21:36 Atorvastatin Calcium 20 Mg Tablet PO 07/12/25 20:59 80 mg HS LUCA Administration Carvedilol 3.125 mg 06/12/25 17:30 06/14/25 08:51 Carvedilol 3.125 Mg Tablet PO 07/12/25 17:29 3.125 mg BIDWM LUCA Administration Potassium Chloride 10 meq in 100 mls @ 100 mls/hr 06/14/25 08:04 06/14/25 10:21 Kcl Ivpb IV 06/14/25 12:03 100 mls/hr Q1H LUCA Administration Losartan Potassium 50 mg 06/13/25 09:00 06/14/25 08:50 Losartan Potassium 25 Mg Tablet PO 07/13/25 08:59 50 mg QDAY LUCA Administration Ondansetron HCl 4 mg 06/12/25 15:26 06/13/25 22:32 Ondansetron Inj 2 Mg/Ml Inj 2 Ml IVP 07/12/25 15:25 4 mg Q6H PRN Administration NAUSEA OR VOMITING Protocol Pantoprazole Sodium 40 mg 06/13/25 09:00 06/14/25 08:51 Pantoprazole Inj 40 Mg Vial IVP 07/13/25 08:59 40 mg BID LUCA Administration Fluticasone/Salmeterol 1 puff 06/13/25 09:00 06/14/25 06:15 Fluticasone/Salmeterol 500/50 60 Dose Inh INH 07/13/25 08:59 1 puff BID LUCA Administration Protocol Sertraline HCl 100 mg 06/13/25 09:00 06/14/25 08:49 Sertraline Hcl 25 Mg Tablet PO 07/13/25 08:59 100 mg DAILY LUCA Administration Sodium Chloride 3 ml 06/12/25 12:58 06/12/25 13:22 Sodium Chloride Rt Lizeth 0.9% 3 Ml Nebu INH 07/12/25 12:57 3 ml PRN PRN Administration SOLN Plan 65 y/o F with PMHx significant for asthma, HTN, CVA without residual deficits, osteopenia presented to ED from home with chief complaint of persistent asthma exacerbation not relieved with home albuterol, found to have anemia with positive FOBT, admitted for colonoscopy. #Grade II internal Hemorroids #GI bleed r/o #Acute on chronic anemia -Patient found to have anemia decreased hemoglobin from 10.5-8.1 over past 3 weeks. FOBT test positive. Patient mated for inpatient colonoscopy to [facility] for GI bleed. Iron 12L, TIBC 353, iron sat 3 L, unsat iron binding 341, ferritin 14, reticulocytosis 3.8% H -EGD(06/13/2025): Showed gastritis. Normal esophagus and normal duodenum. -Colonoscopy(06/14/2025) showed grade 2 internal hemorrhoids, otherwise normal colon. Plan: -Protonix IV -GI consulted, appreciate recommendations. -Monitor H&H, transfuse as needed #Asthma exacerbation Patient presented with chief complaint of shortness of breath, wheezing, not relieved with home albuterol. Patient symptoms improved after breathing treatment and p.o. steroids in the ED. Saturating well on room air. Wheezing on exam. -DuoNebs every 2 hours as needed -Fluticasone/Salmeterol 500/50 (Advair 500/50 Diskus) 1 puff Inh bid luca #CVA without residual deficits, patient history Patient history as stated. - Holding home aspirin/Plavix in setting of GI bleed, resume when appropriate -On Atovarstatin 80mg po hs #HTN, patient history Patient history as stated. Blood pressure elevated in the ED. -Resume home Coreg 3.25 mg p.o. twice daily -Losartain 50mg po qd #Depression, patient history - Resume home sertraline 100 mg p.o. daily DVT prophylaxis: SCDs GI prophylaxis: Protonix Diet: Clear liquid Lines: Peripheral IV Code status: Full code Assessment and plan discussed with my attending physician Dr. Jimenez and Dr. Selby (PGY-2) Dr. Quigley (PGY-1) - Internal medicine resident Attending Provider Attestation/Addendum Jackie Snyder, DO, attest that I was physically present for the reyes portions of the service and evaluated the patient with the resident and I reviewed and discussed the case with the resident and agree with the resident's findings and plans of care as documented above Patient seen and evaluated this AM. She states she is feeling well. No acute events overnight. Pending colonoscopy this afternoon. EGD was done yesterday which did not show any obvious sources of bleeding. Will f/u with colonoscopy results.
--- NOTE | 2025-06-14 13:30 | SUR.PHASEI ---
0288 patient arrived to recovery, resting comfortably in [facility], report received from Sheron BERKOWITZ.
--- NOTE | 2025-06-14 14:11 | SUR.PHASEI ---
1411 Patient meets discharge criteria from recovery, awake and talking with staff, on oxygen 2L via nasal cannula, breathing unlabored, vital signs stable, denies pain and nausea; drinking water; tolerating well, patient transported via [facility] to room 355 without incident, able to ambulate from [facility] to commode, voided and then assisted in her bed, eating her lunch when this proposal lead writer left patient room, call light in reach as well.
[2025-06-14] MEDS: CLOPIDOGREL BISULFATE 75 MG TABLET PO (18:23)
[2025-06-14] MEDS: ATORVASTATIN CALCIUM 20 MG TABLET 80 MG PO (21:13)
[2025-06-15] VITALS (10 sets, daily range): BP systolic 125–152; BP diastolic 66–83; PULSE 66–78; RESP 16–93; TEMP 36.1–36.4; O2SAT 93–94
[2025-06-15 05:43] LABS: Basophils # (Auto) 0.1 Thou/mm3 (0.0-0.2); Basophils % (Auto) 1 % (0-2.5); Eosinophils # (Auto) 0.3 Thou/mm3 (0.0-0.5); Eosinophils % (Auto) 5 % (0-10); Hematocrit 24.0 % (36.0-46.0); Immature Granulocytes Auto 0.02 Thou/mm3 (0.00-0.00); Lymphocytes # (Auto) 2.3 Thou/mm3 (1.0-4.8); Lymphocytes % (Auto) 32 % (10-50); Mean Corpuscular HGB Conc 30.0 g/dl (31.0-37.0); Mean Corpuscular Hemoglobin 26.4 pg (25.0-35.0); Mean Corpuscular Volume 88 fL (80-100); Monocytes # (Auto) 0.9 Thou/mm3 (0.0-0.8); Monocytes % (Auto) 12 % (0-12); Neutrophils # (Auto) 3.6 Thou/mm3 (1.8-7.7); Neutrophils % (Auto) 50 % (37-80); Nucleated Red Blood Cell # 0.00 Thou/mm3 (0.00-0.00); Nucleated Red Blood Cell % 0 /100 WBC (0); Platelet Count 321 Thou/mm3 (140-440); RDW Standard Deviation 48.6 fL (36.4-46.3); Red Blood Count 2.73 Miln/mm3 (4.00-5.20); White Blood Count 7.2 Thou/mm3 (3.6-11.0)
[2025-06-15] MEDS: FLUTICASONE/SALMETEROL 500/50 60 DOSE INH 1 PUFF INH (06:05)
[2025-06-15 06:23] LABS: Alanine Aminotransferase 8 U/L (10-49); Albumin, Serum 3.9 gm/dL (3.4-4.8); Albumin/Globulin Ratio 2.1 (1.2-2.2); Anion Gap 10 (7-16); Aspartate Amino Transferase 15 U/L (0-34); BUN/Creatinine Ratio 16 Ratio (12-20); Bilirubin,Total 0.3 mg/dL (0.3-1.2); Blood Urea Nitrogen 11 mg/dL (9-23); Calcium 9.1 mg/dL (8.3-10.6); Calcium (Corrected) 9.2 mg/dL (8.5-10.1); Carbon Dioxide 26.2 mMol/L (20.0-31.0); Chloride 107 mMol/L (98-107); Creatinine (Component) 0.7 mg/dL (0.6-1.3); Estimated Creatinine Clearance 91.3 mL/min (>60); Globulin 1.9 gm/dL (2.3-3.5); Glucose 103 mg/dL (74-106); Magnesium 1.7 mg/dL (1.6-2.6); Osmolality,Calculated 284 (275-295); Phosphorous 4.1 mg/dL (2.4-5.1); Potassium 4.0 mMol/L (3.4-5.1); Sodium 143 mMol/L (136-145); Total Protein 5.8 gm/dL (5.7-8.2); eGFR > 60 See Note
[2025-06-15 06:44] LABS: Hemoglobin 7.2 g/dL (12.0-16.0)
[2025-06-15 06:53] LABS: Alkaline Phosphatase 71 U/L (46-116)
[2025-06-15] MEDS: LOSARTAN POTASSIUM 25 MG TABLET 50 MG PO (08:34)
[2025-06-15] MEDS: SERTRALINE HCL 25 MG TABLET 100 MG PO (08:35)
[2025-06-15] MEDS: CLOPIDOGREL BISULFATE 75 MG TABLET PO (08:36)
--- NOTE | 2025-06-15 12:56 | ESDS_ITS ---
<Statement entered by Jackie Jimenez DO - 06/16/25 07:22> I, Jackie Jimenez DO, attest that I was physically present for the reyes portions of the service and evaluated the patient with the resident and I reviewed and discussed the case with the resident and agree with the resident's findings and plans of care as documented above <Statement entered by Jose Mckay MD - 06/15/25 15:31> Patient seen and examined at bedside. I discussed and supervised with the music intern physician who took care of this patient. I personally saw and examined the patient. I agree with most of the assessment and plan. Plan of care discussed with attending Dr. Jimenez. Jose Mckay MD PGY-2 Planned Discharge Date 06/15/25 DS: Providers Provider Date of admission: 06/12/25 15:26 Primary care physician: Tiff Guardado NP Admitting Provider: Lencho Adams MD Attending Provider on Admission: Jackie Jimenez DO Consults: 06/12/25 14:33 Consult to Gastroenterology Stat Comment: UGIB Consulting Provider: Dinah Fuentes 06/13/25 09:06 Referral Mert Stat Comment: Attending Provider on DC: Vanna Quigley DO Discharging Provider: Vanna Quigley DO DS: Diagnosis Problem List Completed Was Problem List Reviewed/Reconciled?: Yes Hospital Course Hospital Course Hospital course: Hospital Course: 65 y/o F with PMHx significant for asthma, HTN, CVA without residual deficits, osteopenia presented to ED from home with chief complaint of persistent asthma exacerbation not relieved with home albuterol, found to have anemia with positive FOBT, admitted for colonoscopy. Labs showed hemoglobin 8.1, VBG showing pH 7.43, pCO2 41. FOBT positive, Chest x-ray unremarkable. Upon admission to the hospital, started IV protonix, GI was consulted. For asthma exacerbation, started on DuoNebs and Prednisone. Held home aspirin/Plavix in setting of possible GI bleed. EGD(06/13/2025) showed gastritis, Normal esophagus and normal duodenum. Colonoscopy(06/14/2025) showed grade 2 internal hemorrhoids, otherwise normal colon. Patient's asthma exacerbation treatment changed to DuoNebs and Advair. Patient resumed plavix 75mg po qd. Aspirin was not indicated per neurology note which was reviewed from previous admission. Patient's Hgb decreased from 8.1 on admission to 7.2 on discharge date. Iron level was low with 12. Per GI recommendations, patient was instructed to follow up outpatient for capsule endoscopy. Repeat hemoglobin test in 1 week, and referral to hematology for evaluation of anemia. Patient was stable to be discharged. Patient was counselled on avoiding NSAID use. #Grade II internal Hemorroids #GI bleed r/o #Acute on chronic anemia #Asthma exacerbation #CVA without residual deficits, patient history #HTN, patient history #Depression, patient history Instructions: You have been started on the following medications: - Plavix 75 mg once daily - Iron tablet 3 times daily, take with vitamin C (such as orange juice). If worsening GI upset and constipation with Iron, please take iron once every other day. Please continue all other medications as previously prescribed. Please follow up with your primary care doctor in 7-10 days. Please seek follow up with sand filler Dr. Velasquez. Please seek follow up with neurologist Dr. Castellanos. Seek outpatient referral to hematology for evaluation of anemia. Repeat hemoglobin test in 1 week. F/u outpatient with GI for outpatient capsule endoscopy. Return to ED if you develop new or worsening symptoms. Assessment and plan discussed with my attending physician Dr. Jimenez and Dr. Mckay (PGY-2) Dr. Quigley (PGY-1) - Internal medicine resident Status at Discharge Overall status at discharge: patient is progressing back to baseline Time Spent with Patient Time attestation: Total time spent providing and/or coordinating discharge services: Time spent: Greater than 30 minutes Exam Vital Signs Temp Pulse Resp BP Pulse Ox O2 Del Method O2 Flow Rate 97.3 F 78 18 142/66 H 94 L Room Air 2 06/15/25 11:06/15/25 11:06/15/25 11:06/15/25 11:23 06/15/25 11:06/15/25 11:06/14/25 15:12 Narrative Exam General: No acute distress, well nourished, AAO x3 Eye: PERRL, EOMI, normal conjunctiva, no scleral icterus HENT: Normocephalic, atraumatic, hearing intact to conversation at normal volume, moist oral mucosa Neck: Supple, non-tender, no JVD, no lymphadenopathy Lungs: Non-labored respirations, symmetric chest rise, Clear to auscultate bilaterally, No wheezing, rhonchi, crackles Heart: Peripheral pulses intact bilaterally, Regular Rate and Rhythm. Abdomen: Soft, non-tender, non-distended, no palpable masses Musculoskeletal: Normal range of motion and strength, No cyanosis or edema, No visible joint swelling Skin: Skin is warm, dry, no rashes or lesions. Psychiatric: Cooperative, appropriate mood and affect, Awake and alert, not agitated Neuro: Cranial nerves II-XII grossly intact. Strength 5/5 throughout. Sensations intact to light touch. Discharge Plan Plan Patient Disposition: HOME (Self Care) Patient condition on transfer: Stable Care Plan Goals: Cobb comenzado a erlinda los siguientes medicamentos: - Plavix 75 mg kathie vez al d?a - Tableta de diogenes 3 veces al d?a, t?pierre con vitamina C (nomi jugo de naranja). Si el malestar gastrointestinal y el estre?imiento empeoran con el diogenes, t?whitt kathie vez cada dos d?as. Contin?e con todos los dem?s medicamentos seg?n lo prescrito previamente. Consulte con gupta m?dico de cabecera en 7 a 10 d?as. Consulte con el cardi?logo Dr. Velasquez. Consulte con el neur?logo Dr. Castellanos. [facility] kathie derivaci?n ambulatoria a hematolog?a para evaluaci?n de anemia. Repita la prueba de hemoglobina en 1 semana. Paciente externo con gastroenterolog?a para endoscopia ambulatoria. Regrese a urgencias si presenta s?ntomas nuevos o empeoramiento. You have been started on the following medications: - Plavix 75 mg once daily - Iron tablet 3 times daily, take with vitamin C (such as orange juice). If worsening GI upset and constipation with Iron, please take iron once every other day. The following medications have been STOPPED: - Aspirin Please continue all other medications as previously prescribed. Please follow up with your primary care doctor in 7-10 days. Please seek follow up with sand filler Dr. Velasquez. Please seek follow up with neurologist Dr. Castellanos. Seek outpatient referral to hematology for evaluation of anemia. Repeat hemoglobin test in 1 week. F/u outpatient with GI for outpatient capsule endoscopy. Return to ED if you develop new or worsening symptoms. Prescriptions/Referrals Prescriptions/Med Rec: New ferrous sulfate 325 mg (65 mg iron) tablet 325 mg PO TID 30 Days Qty: 90 0RF clopidogrel [Plavix] 75 mg tablet 75 mg PO QDAY 30 Days Qty: 30 0RF ascorbic acid (vitamin C) [Vitamin C] 500 mg tablet 500 mg PO TID Qty: 90 0RF Continued azelastine 0.05 % drops 1 drp Both eyes BID carvedilol 3.125 mg tablet 3.125 mg PO BID 30 Days Qty: 60 0RF Rx Instructions: must administer with a meal/food losartan 50 mg tablet 50 mg PO QDAY Qty: 30 0RF atorvastatin [Lipitor] 80 mg tablet 80 mg PO HS Qty: 30 0RF sertraline [Zoloft] 100 mg tablet 100 mg PO QDAY Qty: 30 0RF fluticasone propion-salmeterol [Advair HFA] 230-21 mcg/actuation HFA aerosol inhaler 2 puff INHALATION BID Qty: 12 5RF Rx Instructions: Directions in [place] albuterol sulfate [Ventolin HFA] 90 mcg/actuation HFA aerosol inhaler 2 puff inhalation Q6H PRN (Reason: shortness of breath or wheezing) Qty: 8.5 2RF Discontinued clopidogrel 75 mg tablet 75 mg PO QDAY Qty: 30 0RF aspirin 81 mg tablet,delayed release (DR/EC) 81 mg PO HS Referrals: Nikolay Velasquez MD [Physician, Cardiology] [facility] RAIL OPERATOR,Tiff De Los Santos NP [Primary Care Provider, Family Practice] Juancarlos Castellanos MD [Physician, Neurology] Patient/Caregiver Discharge Instructions Education Materials: Bleeding Gastrointestinal, Treating Hemorrhoids: Self- Care, Asthma Action Plan, Diagnosing Hemorrhoids, ED Hemorrhoids, Asthma Print Language: Tuvaluan Stand Alone Forms: Annita Award Info., Patient Portal Info Letter Discharge Order Discharge Orders: Discharge (Routine); Ordered 06/15/25 Ordered By: Jose Mckay Quality Discharge Quality Measures VTE prophylaxis
--- NOTE | 2025-06-15 19:23 | ESPR_ITS ---
Documentation for date of: 06/15/25 Subjective Subjective Interval history: late entry for the note okay to discharge patient Case discussed with internal medicine resident Further outpatient recommendations made Iron sulfate 3 times a day to be taken together with vitamin C 500 mg 3 times daily Outpatient capsule endoscopy Refer to hematology for outpatient bone marrow biopsy and aspirate Exam Vital Signs Temp Pulse Resp BP Pulse Ox O2 Del Method O2 Flow Rate 97.3 F 72 18 152/83 H 93 L Room Air 2 06/15/25 16:00 06/15/25 16:00 06/15/25 16:00 06/15/25 16:00 06/15/25 16:00 06/15/25 16:00 06/14/25 15:12 Objective Labs 06/15/25 04:56 06/15/25 04:56 Labs: Laboratory Results - last 24 hr 06/15/25 04:56 WBC 7.2 RBC 2.73 L Hgb 7.2 L Hct 24.0 L MCV 88 MCH 26.4 MCHC 30.0 L RDW Std Deviation 48.6 H Plt Count 321 Neut % (Auto) 50 Lymph % (Auto) 32 [place] % (Auto) 12 Eos % (Auto) 5 Baso % (Auto) 1 Neut # (Auto) 3.6 Lymph # (Auto) 2.3 [place] # (Auto) 0.9 H Eos # (Auto) 0.3 Baso # (Auto) 0.1 Immature Gran # (Auto) 0.02 H Absolute Nucleated RBC 0.00 Immature Gran % 0 Nucleated RBC % 0 Sodium 143 Potassium 4.0 D Chloride 107 Carbon Dioxide 26.2 Anion Gap 10 BUN 11 Creatinine 0.7 Estim Creat Clear Calc 91.3 eGFR > 60 BUN/Creatinine Ratio 16 Glucose 103 Calculated Osmolality 284 Calcium 9.1 Corrected Calcium 9.2 Phosphorus 4.1 Magnesium 1.7 Total Bilirubin 0.3 AST 15 ALT 8 L Alkaline Phosphatase 71 Total Protein 5.8 Albumin 3.9 D Globulin 1.9 L Albumin/Globulin Ratio 2.1 Impressions Impression: Occult GI bleeding plan As in HPI ABG Interpretation ABG results: 06/12/25 13:11 VBG pH 7.43 VBG pCO2 41 VBG pO2 51 VBG Base Excess 2 Assessment & Plan A&P Narrative # FOBT positive # GI bleeding with significant drop in hemoglobin hematocrit plan Iron panel Iron saturation B12 folate level Reticulocyte count N.p.o. midnight tonight Consent obtained for fiberoptic esophagogastroduodenoscopy with possible biopsy possible therapeutic intervention under intravenous moderate sedation IV Protonix Will follow the patient Thank you very much for the opportunity to participate in care of this patient Time Spent With Patient Time: Total time spent is greater than 50% in coordination of care (as documented) at patient's floor/unit and/or counseling patient:
--- NOTE | 2025-06-16 07:36 | CHAP ---
Patient was visited by a Spiritual Care Volunteer on 06/15/2025 between 0900 and 1200 and received comfort, encouragement and/or prayer.
--- NOTE | 2025-06-18 18:32 | PC.CC ---
[facility] accepted and booked, MELISSA 06/21
== END 2025-06-15 16:29 | disposition home health service (06) | DRG 226 ==
LOC: SERX 14:41 → S3NX 18:03
PROVIDERS: Specialist; Admitting Provider Student in an Organized Health Care Education/Training Program; Emergency Provider Nurse Practitioner Family; PCP Nurse Practitioner Family; Visit Provider Internal Medicine
PROC: 0DB68ZX Excision of Stomach, Via Natural or Artificial Opening Endoscopic, Diagnostic (ICD-10-PCS; CPT 43239; principal; 2025-06-13 16:00)
PROC: 0DJD8ZZ Inspection of Lower Intestinal Tract, Via Natural or Artificial Opening Endoscopic (ICD-10-PCS; CPT 45378; principal; 2025-06-14 17:00)
DX: K64.1 Second degree hemorrhoids (principal); J45.901 Unspecified asthma with (acute) exacerbation; K29.71 Gastritis, unspecified, with bleeding; D62 Acute posthemorrhagic anemia; K31.89 Other diseases of stomach and duodenum; I10 Essential (primary) hypertension; F32.A Depression, unspecified; Z86.73 Personal history of transient ischemic attack (TIA), and cerebral infarction without residual deficits; Z79.02 Long term (current) use of antithrombotics/antiplatelets; Z79.51 Long term (current) use of inhaled steroids; Z79.899 Other long term (current) drug therapy
CPT/HCPCS: 36415; 71045; 80048; 80053; 82270; 82607; 82728; 82803; 83540; 83550; 83605; 83735; 83880; 84100; 84145; 84484; 85025; 85046; 85610; 85730; 86140; 87040; 93005; 93225; 94640; 94664; 96374; 96375; 99283; A4649; A9270; J0131; J1100; J1200; J2250; J2405; J2470; J3010; J3480

== ENCOUNTER → 2025-07-08 | Outpatient (BNVA) | payer MEDICAID, SELFPAY | END | disposition home or self-care (01) | PROVIDERS: PCP Nurse Practitioner Family; Referring Provider Nurse Practitioner Family; Visit Provider Nurse Practitioner Family | DX: Z76.0 Encounter for issue of repeat prescription (principal); Q21.12 Patent foramen ovale; I63.89 Other cerebral infarction; I10 Essential (primary) hypertension; R73.03 Prediabetes | CPT/HCPCS: 99213; A9270 ==